=== PATIENT | female | born 1970 | race Caucasian/White ===

== ENCOUNTER 2018-12-10 16:00 | Outpatient (RCR) | payer OTHER, SELFPAY | END 2018-12-10 16:05 | disposition home or self-care (01) | LOC: PT 16:00 | PROVIDERS: Visit Provider Internal Medicine | DX: I89.0 Lymphedema, not elsewhere classified; C50.912 Malignant neoplasm of unspecified site of left female breast | CPT/HCPCS: 97110; 97140; 97163 ==

== ENCOUNTER 2020-06-13 10:00 | Outpatient (RCR) | payer OTHER, SELFPAY | END 2020-06-13 11:00 | disposition home or self-care (01) | LOC: PT 10:00 | PROVIDERS: PCP Nurse Practitioner Family; Visit Provider Internal Medicine | DX: Z85.3 Personal history of malignant neoplasm of breast; I89.0 Lymphedema, not elsewhere classified | CPT/HCPCS: 97110; 97112; 97140; 97163; 97164; 97530; 97760 ==

== ENCOUNTER 2020-07-23 17:17 | Emergency (ER) | payer OTHER, SELFPAY ==
[2020-07-23 17:56] VITALS: BP 125/82; PULSE 89; RESP 19; TEMP 36.6; O2SAT 98; BMI 28.0
--- NOTE | 2020-07-23 18:08 | HMH.EDUTC ---
[facility] [place] Clinical Impression: Sinusitis Qualifiers: Sinusitis location: unspecified location Chronicity: unspecified Qualified Code(s): J32.9 - Chronic sinusitis, unspecified Disposition: Home, Self-Care Condition on Discharge: Good Instructions: Sinusitis, Sinus Headache, DI for Sinusitis, Azithromycin Additional Instructions: *Monitor Temp, Over the counter Motrin or Tylenol as directed/as needed Tylenol every 4 hours and Motrin every 6 hours (as long as your family doctor has told you that you can take it) for fever or pain. and straight to ER if unable to lower temp less than 101.0 after medication given *Warm salt water gargles may help to soothe the throat *Throat Lozenges *Warm fluids like tea with honey may help to soothe the throat *Sleep elevated *Humidifier/Vaporizer Follow up IMMEDIATELY for new or worsening symptoms or no Noticeable improvement over the next 48-72 hours. 911 for difficulty breathing or swallowing You was tested for today for COVID19 your test result should be back later this evening, you may call back later this evening to see if your test results are back and the result You was given a handout with instructions for Self Quarantine and Self isolation for while you wait on test results and what to do if they are positive Prescriptions: Azithromycin [Z-Gigi 250mg Tab] 250 mg PO DIRECTED #6 tab Transmission Status: Pending to [facility] #[id number] Referrals: Ashley Christian APRN [Primary Care Provider] - As needed Forms: Work/School Release Time of Disposition: 18:26 Medical Decision Making - Jake Inquiry Pt receiving controlled substance: No Jake was queried for this patient: No Vital Signs: 07/23/20 17:56 Temperature 97.9 F Temperature Source Oral Pulse Rate [Right Brachial] 89 Respiratory Rate 19 Blood Pressure [Right Arm] 125/82 Blood Pressure Mean [Right Arm] 96 Blood Pressure Source [Right Arm] Automatic Cuff Blood Pressure Position [Right Arm] Sitting 02 Sat by Pulse Oximetry 98 Oxygen Delivery Method Room Air Medical Decision Narrative: Patient states that she has had azithromycin in the past without reaction or complications [facility] [place] HPI - General Stated complaint: wants Covid test,Sore throat,BALDERRAMA Time Seen by Provider: 07/23/20 18:08 Mode of Arrival: Ambulatory Source of Information: Patient Limitations: No Limitations Description of Symptoms (Recalled from Triage Doc. by RN): PATIENT REQUESTING COVID TEST; STATES HE HAS BEEN QUARANTINED WITH HIS DAUGHTER WHO TESTED POSITIVE LAST THURSDAY. STATES SHE DOES HAVE SOME SYMPTOMS OF A SINUS INFECTION HEENT Symptoms (Recalled from RN notes): No Resp Symptoms (Recalled from RN notes): No Skin Symptoms (Recalled from RN notes): No MS Symptoms (Recalled from RN notes): No Functional Status (Recalled from RN notes): WNL - Related Data Home Medications Medication Instructions Recorded Confirmed Duloxetine HCl [Cymbalta 30mg 60 mg PO DAILY 12/01/19 12/05/19 capsule] Levothyroxine Sodium [Synthroid 150 mcg PO DAILY 12/01/19 12/05/19 150mcg (0.15mg) tablet] Previous Rx's Medication Instructions Recorded Ipratropium/Albuterol Sulfate 3 ml IH Q4H 20 Days #75 neb 12/25/19 [Duoneb 3mL neb] Montelukast Sodium [Singulair 10mg 10 mg PO PM 30 Days #30 tab 12/25/19 tablet] Promethazine/Dextromethorphan 10 ml PO QID 8 Days #240 syrup 12/25/19 [Promethazine-Dm Syrup] Azithromycin [Z-Gigi 250mg Tab] 250 mg PO DIRECTED #6 tab 07/23/20 Allergies Allergy/AdvReac Type Severity Reaction Status Date / Time fluticasone Allergy Unknown Verified 12/05/19 08:17 [From ADVAIR DISKUS] Penicillins [PENICILLINS] Allergy Unknown Verified 12/05/19 08:17 salmeterol Allergy Unknown Verified 12/05/19 08:17 [From ADVAIR DISKUS] - Worker's Comp Is this a Worker's Comp case?: No [facility] History - Hepatitis A Screen Drug use history?: No High risk sexual behaviors?: No His
[2020-07-23 18:28] VITALS: BP 125/82; PULSE 89; RESP 19; TEMP 36.6; O2SAT 98
== END 2020-07-23 18:37 | disposition home or self-care (01) ==
PROVIDERS: Emergency Provider Nurse Practitioner; PCP Nurse Practitioner Family
DX: Z20.828 Contact with and (suspected) exposure to other viral communicable diseases (principal); J32.9 Chronic sinusitis, unspecified
CPT/HCPCS: 99201; U0003

== ENCOUNTER 2020-08-24 11:10 | Emergency (ER) | payer OTHER, SELFPAY ==
[2020-08-24 11:15] VITALS: BP 123/91; PULSE 78; RESP 18; TEMP 36.9; O2SAT 100; BMI 28.8
--- NOTE | 2020-08-24 11:23 | HMH.EDGENADL ---
ED Disposition Clinical Impression: Colitis Disposition: Home, Self-Care Condition on Discharge: Good Instructions: Low-Fiber/Low-Residue Diet, DI for Colitis Additional Instructions: Drink plenty of fluids. Phenergan as needed for nausea. Bentyl as prescribed, [id number] probiotic, low residue diet (see instruction sheet). Return if severe pain, severe bleeding, fever greater than 100 degrees. Call back to the emergency department in 4 hrs to obtain your COVID-19 test result. Quarantine yourself until you obtain your result. Prescriptions: Promethazine HCl [Phenergan 25mg tab] 25 mg PO Q6HP PRN #10 tab PRN Reason: Nausea And Vomiting Transmission Status: Received by [facility] #[id number] Dicyclomine HCl [Bentyl 10mg capsule] 10 mg PO TID #15 cap Transmission Status: Received by [facility] #[id number] Referrals: Ashley Christian APRN [Primary Care Provider] - - Critical Care Critical Care Time: No Attestation: On 08/24/20, the high probability of a clinically significant, sudden or life threatening deterioration of the following system(s) required my full and direct attention, intervention and personal management. The time I documented below is in addition to time spent performing reported procedures but includes the following listed in this critical care notation. Medical Decision Making - Medical Records Medical records reviewed: Yes: I reviewed the patient's medical records. MR Comment: prior colonoscopy result reviewed - Jake Inquiry Pt receiving controlled substance: No Vital Signs: 08/24/20 11:15 08/24/20 12:00 08/24/20 12:30 Temperature 98.4 F Temperature Source Oral Pulse Rate [Right Radial] 78 67 68 Respiratory Rate 18 Blood Pressure [Right Arm] 123/91 H 126/85 112/73 Blood Pressure Mean [Right Arm] 101 98 86 Blood Pressure Source [Right Arm] Automatic Cuff Automatic Cuff Automatic Cuff Blood Pressure Position [Right Arm] Sitting Sitting Sitting 02 Sat by Pulse Oximetry 100 98 Oxygen Delivery Method Room Air Room Air 08/24/20 13:00 08/24/20 14:15 Temperature Temperature Source Pulse Rate [Right Radial] 67 78 Respiratory Rate Blood Pressure [Right Arm] 121/84 135/101 H Blood Pressure Mean [Right Arm] 96 112 Blood Pressure Source [Right Arm] Automatic Cuff Automatic Cuff Blood Pressure Position [Right Arm] Sitting Sitting 02 Sat by Pulse Oximetry 99 99 Oxygen Delivery Method Room Air Room Air - Lab Data Lab Results 08/24/20 11:24: WBC 5.8, RBC 5.37, Hgb 16.1, Hct 48.5 H, MCV 90.5, MCH 30.1, MCHC 33.2, RDW 13.9, Plt Count 182, MPV 7.3 L, Neut % (Auto) 71.8, Lymph % (Auto) 19.2, [place] % (Auto) 6.4, Eos % (Auto) 1.8, Baso % (Auto) 0.9, Neut # (Auto) 4.2, Lymph # (Auto) 1.1, [place] # (Auto) 0.4, Eos # (Auto) 0.1, Baso # (Auto) 0.1 08/24/20 11:24: Sodium 140, Potassium 4.2, Chloride 104, Carbon Dioxide 30, Anion Gap 10.2, BUN 15, Creatinine 0.80, Estimated Creat Clear 119, Estimated GFR 76, Est GFR ( Amer) 92, Glucose 92, Calcium 9.7, Total Bilirubin 1.1, AST 31, ALT 22, Alkaline Phosphatase 75, Total Protein 7.6, Albumin 4.6, Globulin 3.0, Albumin/Globulin Ratio 1.5 08/24/20 11:24: PT 11.1, INR 1.00, APTT 25.5 08/24/20 11:24: ESR 3 08/24/20 11:24: C-Reactive Protein 31.6 H 08/24/20 11:30: Stool Occult Blood Positive A 08/24/20 12:17: Urine Color Yellow, Urine Appearance Clear, Urine pH 8.0, Ur Specific [place] 1.015, Urine Protein Negative, Urine Glucose (UA) Negative, Urine Ketones Negative, Urine Blood Negative, Urine Nitrate Negative, Urine Bilirubin Negative, Urine Urobilinogen 0.2, Ur Leukocyte Esterase 1+ A, Urine RBC None, Urine WBC 3-5, Ur Squamous Epith Cells 3-5, Ur Transition Epith Cell Occ, Amorphous Sediment 2+, Urine Bacteria None Result diagrams: 08/24/20 11:24 08/24/20 11:24 Orders (Tests/Meds): ED MEDICATIONS Discontinued Medications Generic Name Dose Route Start Last Admin Trade Name Marcellus PRN Reason Stop Do
[2020-08-24 11:29] VITALS: BMI 28.8
[2020-08-24 11:35] LABS: Occult Blood,Stool Positive (Negative)
--- NOTE | 2020-08-24 11:35 | CT_ITS ---
PROCEDURE: CT ABDOMEN PELVIS W CON CLINICAL INDICATION: abdo pain, rectal bleeding, vomiting Nausea, rectal bleeding, history of breast cancer and thyroid cancer COMPARISON: No exams were available for comparison TECHNIQUE: IV Contrast: 75ML Isovue 370 Oral Contrast None Axial images obtained with sagittal and coronal reformats. All CT scans at the facility use one or more dose reduction, viz: automated exposure control, ma/kV adjustment per patient size (including targeted exams where dose is matched to indication, i.e. head), or iterative reconstruction technique. FINDINGS: LOWER THORAX: There are bilateral breast implants.. Calcified granuloma is present in the right lower lobe. ABDOMEN & PELVIS: The liver, spleen, adrenal glands, pancreas, and gallbladder have an unremarkable appearance. No renal or ureteral calculi. There is a 3 x 1.6 cm left renal cyst. No renal or ureteral calculi. There is mild ectasia of the ureters on both sides however, a definite ureteral stone is not identified and there is no significant urinary bladder distention. This may be due to patient's hydration status. There has been a prior hysterectomy. No evidence of appendicitis. There is mild thickening of the descending colon in its mid aspect. No obvious diverticula are evident at this region. This could be due to nondistention or mild colitis. There is degenerative disc disease at L5-S1. There is mild wedging of T11 which may be chronic. IMPRESSION: 1. There is mild thickening of the descending colon. This is nonspecific and could be due to nondistention or mild colitis. No evidence of diverticulitis. 2. Other nonacute findings as described above. Dictated by: Marbin Spain MD 08/24/2020 14:18 Marbin Spain MD in [place] 08/24/2020 14:18
[2020-08-24 11:38] LABS: Basophils # 0.1 K/mm3 (0-0.2); Basophils % 0.9 % (0.1-2.0); Eosinophils # 0.1 K/mm3 (0.0-0.4); Eosinophils % 1.8 % (0.1-12.0); Hematocrit 48.5 % (37.0-47.0); Hemoglobin 16.1 g/dL (12.2-16.2); Lymphocytes # 1.1 K/mm3 (0.7-4.5); Lymphocytes % 19.2 % (10-50); Mean Corpuscular HGB Conc 33.2 g/dL (31.8-35.4); Mean Corpuscular Hemoglobin 30.1 pg (27.0-31.2); Mean Corpuscular Volume 90.5 fl (81-99); Mean Platelet Volume 7.3 fl (7.4-10.4); Monocytes # 0.4 K/mm3 (0.1-1.0); Monocytes % 6.4 % (1.7-9.3); Neutrophils # 4.2 K/mm3 (1.8-7.8); Neutrophils % 71.8 % (37.0-80.0); Platelet Count 182 K/mm3 (142-424); Red Blood Count 5.37 M/mm3 (4.20-5.40); Red Cell Distribution Width 13.9 % (11.5-17.5); White Blood Count 5.8 K/mm3 (4.8-10.8)
[2020-08-24 11:39] LABS: Chloride 104 mmol/L (98-107); Potassium 4.2 mmoL/L (3.5-5.1); Sodium 140 mmol/L (136-145)
[2020-08-24 11:42] LABS: Alanine Aminotransferase 22 U/L (12-78); Albumin Level 4.6 g/dl (3.5-5.0); Albumin/Globulin Ratio 1.5 (1.1-1.8); Alkaline Phosphatase 75 U/L (38-126); Anion Gap 10.2 mEq/L (5-15); Aspartate Amino Transferase 31 U/L (14-36); Bilirubin,Total 1.1 mg/dl (0.2-1.3); Blood Urea Nitrogen 15 mg/dl (7-17); Calcium 9.7 mg/dl (8.4-10.2); Carbon Dioxide 30 mmol/L (22.0-30.0); Creatinine Clearance Estimated 119 mL/min (50-200); Estimated Glomerular Filt Rate 76 ml/min (>60); GFR (African American) 92 ML/MIN (>60); Glucose 92 mg/dl (74-100); Total Protein,Serum 7.6 g/dl (6.3-8.2)
[2020-08-24 11:50] LABS: Activated Partial Thrombo Time 25.5 seconds (23.6-34.0); Prothrombin Time 11.1 seconds (9.4-11.8)
--- NOTE | 2020-08-24 11:52 | PC.NURSE ---
PO contrast completed at 1140. Radiology aware of this
--- NOTE | 2020-08-24 11:59 | PC.NURSE ---
CARLENE CHAUDHRY speaking with Dr. Marquez
[2020-08-24 12:00] VITALS: BP 126/85; PULSE 67
--- NOTE | 2020-08-24 12:16 | PC.NURSE ---
pt reports an allergy to Zofran, reports that when she was taking chemotherapy it make her vomiting worse.
[2020-08-24 12:27] LABS: Appearance,Urine CLEAR (Clear); Bilirubin,Urine Negative (Negative); Blood, Urine Negative (Negative); Color,Urine YELLOW (Yellow); Glucose,Urine (UA) Negative (Negative); Ketones,Urine Negative (Negative); Leukocyte Esterase,Urine 1+ (Negative); Microscopic, Urine URINE MICROSCOPIC (MICROSCOPIC); Nitrate,Urine Negative (Negative); Protein,Urine Negative (Negative); Specific Gravity, Urine 1.015 (1.005-1.030); Urobilinogen,Urine 0.2 EU/dl (0.2)
[2020-08-24 12:30] VITALS: BP 112/73; PULSE 68; O2SAT 98
[2020-08-24 12:38] LABS: Amorphous Sediment,Urine 2+ /lpf; Transitional Epi Cells,Urine OCC #/lpf (0-3)
[2020-08-24 13:00] VITALS: BP 121/84; PULSE 67; O2SAT 99
[2020-08-24 13:23] LABS: C-Reactive Protein 31.6 mg/L (0-4)
[2020-08-24 13:36] LABS: Erythrocyte Sedimentation Rate 3 mm/hr (0-20)
--- NOTE | 2020-08-24 13:39 | PC.NURSE ---
Addendum entered by Humza Steele, EMT-P 08/24/20 14:06: patient left around 1330. Still in radiology Original Note: patient is gone to radiology
--- NOTE | 2020-08-24 14:10 | PC.NURSE ---
pt back from radiology. Patient request medication for nausea. MD consulted.
[2020-08-24 14:15] VITALS: BP 135/101; PULSE 78; O2SAT 99
--- NOTE | 2020-08-24 14:24 | PC.NURSE ---
CARLENE CHAUDHRY speaking with Dr. Marquez
[2020-08-24 14:58] VITALS: BP 123/87; PULSE 77; RESP 18; TEMP 36.9; O2SAT 99
[2020-08-24 15:13] LABS: Thyroid Stimulating Hormone < 0.02 uIU/mL (0.465-4.68)
== END 2020-08-24 14:59 | disposition home or self-care (01) ==
PROVIDERS: Emergency Provider Emergency Medicine; PCP Nurse Practitioner Family
DX: K52.9 Noninfective gastroenteritis and colitis, unspecified (principal); K58.1 Irritable bowel syndrome with constipation; J45.909 Unspecified asthma, uncomplicated; Z20.828 Contact with and (suspected) exposure to other viral communicable diseases; Z88.0 Allergy status to penicillin
CPT/HCPCS: 74177; 80053; 81001; 82272; 84443; 85025; 85610; 85651; 85730; 86140; 87086; 87088; 87186; 96365; 96375; 99284; G0328; Q9967; U0003

== ENCOUNTER 2020-09-26 10:53 | Emergency (ER) | payer OTHER, SELFPAY ==
[2020-09-26 11:00] VITALS: BP 129/88; PULSE 81; RESP 20; TEMP 36.9; O2SAT 96; BMI 27.3
--- NOTE | 2020-09-26 11:15 | HMH.EDUTC ---
[facility] [place] Disposition Clinical Impression: Encounter for laboratory testing for COVID-19 virus Disposition: Home, Self-Care Condition on Discharge: Good Instructions: DI for COVID-19 (Suspected or Confirmed ), COVID-19: Testing and Tracing, Preventing the Spread of Coronavirus Discharge Instructions Additional Instructions: You were tested for today for COVID19 your test result should be back in the next 24-48 hours, you may call to the [facility] to see if your test results are back in the next 48 hours [phone] [facility] hours are 9am-9pm You was given a handout with instructions for Self Quarantine and Self isolation for while you wait on test results and what to do if they are positive If you are positive the Health Dept will be contacting you also If you come back positive, you may contact the Health Dept for further instructions on what to do and what CDC recommends Referrals: Ashley Christian APRN [Primary Care Provider] - As needed Time of Disposition: 11:23 Medical Decision Making - Jake Inquiry Pt receiving controlled substance: No Jake was queried for this patient: No Vital Signs: 09/26/20 11:00 Temperature 98.5 F Temperature Source Oral Pulse Rate [Left Brachial] 81 Respiratory Rate 20 Blood Pressure [Left Arm] 129/88 Blood Pressure Mean [Left Arm] 101 Blood Pressure Source [Left Arm] Automatic Cuff Blood Pressure Position [Left Arm] Sitting 02 Sat by Pulse Oximetry 96 Oxygen Delivery Method Room Air Orders (Tests/Meds): ORDERS Category Date Time Status Covid-19 Nasal PCR ([facility]) Routine Lab 09/26/20 11:05 Received [facility] [place] HPI - General Stated complaint: Covid positive, covid re test Time Seen by Provider: 09/26/20 11:15 Mode of Arrival: Ambulatory Source of Information: Patient Limitations: No Limitations Description of Symptoms (Recalled from Triage Doc. by RN): PATIENT REQUESTING COVID TEST TO RETURN TO WORK. SHE REPORTS TESTING POSITIVE ON 09/14. DENIES ANY SYMPTOMS AT THIS TIME HEENT Symptoms (Recalled from RN notes): No Resp Symptoms (Recalled from RN notes): No Skin Symptoms (Recalled from RN notes): No MS Symptoms (Recalled from RN notes): No Functional Status (Recalled from RN notes): WNL - History of Present Illness Provider Complaint: Patient state that she is here to get retested States that she tested positive for COVID earlier in the month and she came back in to get retested to get a negative result so she can return to work States that she is no longer having any symptoms - Related Data Home Medications Medication Instructions Recorded Confirmed Duloxetine HCl [Cymbalta 30mg 60 mg PO DAILY 12/01/19 08/24/20 capsule] Levothyroxine Sodium [Synthroid 150 mcg PO DAILY 12/01/19 08/24/20 150mcg (0.15mg) tablet] Exemestane 25 mg PO DAILY 08/24/20 08/24/20 Meloxicam 7.5 mg PO DAILY 08/24/20 08/24/20 methocarbamoL [Methocarbamol 500mg 500 mg PO TID 08/24/20 08/24/20 Tablet] Previous Rx's Medication Instructions Recorded Ipratropium/Albuterol Sulfate 3 ml IH Q4H 20 Days #75 neb 12/25/19 [Duoneb 3mL neb] Montelukast Sodium [Singulair 10mg 10 mg PO PM 30 Days #30 tab 12/25/19 tablet] Dicyclomine HCl [Bentyl 10mg 10 mg PO TID #15 cap 08/24/20 capsule] Promethazine HCl [Phenergan 25mg 25 mg PO Q6HP PRN #10 tab 08/24/20 tab] Allergies Allergy/AdvReac Type Severity Reaction Status Date / Time fluticasone Allergy Unknown Verified 12/05/19 08:17 [From ADVAIR DISKUS] Penicillins [PENICILLINS] Allergy Unknown Verified 12/05/19 08:17 salmeterol Allergy Unknown Verified 12/05/19 08:17 [From ADVAIR DISKUS] ondansetron [From Zofran] Allergy Verified 08/24/20 12:17 - Worker's Comp Is this a Worker's Comp case?: No [facility] History - Hepatitis A Screen Drug use history?: No High risk sexual behaviors?: No History of sexually transmitted infection?: No Currently employed?: No Childcare worker?: No Do you have indoor plumbing
[2020-09-26 11:25] VITALS: BP 129/88; PULSE 81; RESP 20; TEMP 36.9; O2SAT 96
--- NOTE | 2020-09-26 17:51 | PC.NURSE ---
PT NOTIFIED OF POSITIVE COVID RESULT
== END 2020-09-26 11:28 | disposition home or self-care (01) ==
PROVIDERS: Emergency Provider Nurse Practitioner; PCP Nurse Practitioner Family
DX: U07.1 COVID-19 (principal); J45.909 Unspecified asthma, uncomplicated; Z88.0 Allergy status to penicillin; Z90.13 Acquired absence of bilateral breasts and nipples
CPT/HCPCS: 99201; U0003

== ENCOUNTER → 2020-11-05 08:19 | Outpatient (CLI) | payer OTHER, SELFPAY ==
--- NOTE | 2020-11-05 08:25 | XR_ITS ---
PROCEDURE: XR KNEE RT 3V CLINICAL INDICATION: RT KNEE PAIN COMPARISON: CR [id number] KNEE-4 OR 5 VIEWS-LT from 11/16/2015 FINDINGS: No fracture or dislocation. No lytic or blastic change. There is normal mineralization. There are minimal osteoarthritic changes of the medial compartment and patellofemoral joint with small suprapatellar effusion. Other findings:None. IMPRESSION: Minimal osteoarthritis with small suprapatellar effusion Dictated by: Marbin Spain MD 11/05/2020 18:22 Marbin Spain MD in [place] 11/05/2020 18:22
== END ==
PROVIDERS: PCP Family Medicine; Visit Provider Family Medicine
DX: M25.561 Pain in right knee (principal)
CPT/HCPCS: 73562

== ENCOUNTER → 2021-06-10 23:20 | Outpatient (CLI) | payer OTHER, SELFPAY | PROVIDERS: Visit Provider Nurse Practitioner Family | DX: Z20.822 Contact with and (suspected) exposure to COVID-19 (principal) | CPT/HCPCS: U0003 ==

== ENCOUNTER 2021-07-14 09:35 | Emergency (ER) | payer OTHER, SELFPAY ==
[2021-07-14 09:35] VITALS: BP 122/71; PULSE 81; RESP 18; TEMP 36.8; O2SAT 97; BMI 32.3
--- NOTE | 2021-07-14 09:53 | HMH.EDUTC ---
[facility] [place] Clinical Impression: Strep throat Disposition: Home, Self-Care Condition on Discharge: Good Instructions: Strep Throat, DI for Strep Throat Additional Instructions: *Monitor Temp, Over the counter Motrin or Tylenol as directed/as needed Tylenol every 4 hours and Motrin every 6 hours (as long as your family doctor has told you that you can take it) for fever or pain. and straight to ER if unable to lower temp less than 101.0 after medication given *Warm salt water gargles may help to soothe the throat *Throat Lozenges *Warm fluids like tea with honey may help to soothe the throat *Sleep elevated *Humidifier/Vaporizer Follow up IMMEDIATELY for new or worsening symptoms or no Noticeable improvement over the next 48-72 hours. 911 for difficulty breathing or swallowing You were tested for today for COVID19 your test result should be back in the next 24-48 hours, you was given Handout to [facility] portal to check your results if you have issues logging on you may call the [facility] for your Results You was given a handout with instructions for Self Quarantine and Self isolation for while you wait on test results and what to do if they are positive If you are positive the Health Dept will be contacting you also Make sure to take your Vitamins Vit. C Vit D and Zinc if you can take them Prescriptions: Benzonatate [Tessalon Perle 100mg Cap*] 100 mg PO TID PRN #30 cap PRN Reason: Cough Transmission Status: Received by [facility] # Azithromycin [Z-Gigi 250mg Tab] 250 mg PO DIRECTED #6 tab Transmission Status: Received by [facility] # Referrals: Sriram Gee MD [Primary Care Provider] - As needed Time of Disposition: 10:21 Medical Decision Making - Jake Inquiry Pt receiving controlled substance: No Jake was queried for this patient: No Vital Signs: 07/14/21 09:35 Temperature 98.3 F Temperature Source Oral Pulse Rate [Right Brachial] 81 Respiratory Rate 18 Blood Pressure [Right Arm] 122/71 Blood Pressure Mean [Right Arm] 88 Blood Pressure Source [Right Arm] Automatic Cuff Blood Pressure Position [Right Arm] Sitting 02 Sat by Pulse Oximetry 97 Oxygen Delivery Method Room Air - Lab Data Lab results reviewed: Yes: I reviewed the patient's lab results. Lab Results 07/14/21 09:53: Strep [facility]n [facility] Positive A Orders (Tests/Meds): ED MEDICATIONS Discontinued Medications Generic Name Dose Route Start Last Admin Trade Name Marcellus PRN Reason Stop Dose Admin Ceftriaxone Sodium 1 gm 07/14/21 09:58 07/14/21 10:07 Ceftriaxone 1gm Vial IM 07/14/21 09:59 1 gm ONCE ONE Administration Lidocaine HCl 0 ml 07/14/21 09:58 07/14/21 10:07 Lidocaine 1% 5ml Pf Vial IM 07/14/21 09:59 2.1 ml ONCE ONE Administration Methylprednisolone Sodium Succinate 125 mg 07/14/21 09:58 07/14/21 10:07 Methylprednisolone Sod Succ 125mg Vial IM 07/14/21 09:59 125 mg ONCE ONE Administration ORDERS Category Date Time Status Full Resp Panel w/COVID ([facility]) Routine Lab 07/14/21 09:50 Received Medical Decision Narrative: Patient states that she is currently undergoing CHEMO States that is allergic to advair and PCN but has taken Rocephin and SoluMedrol in the past without reactions or complication No rash or complications after medication [facility] [place]PI - General Stated complaint: Exposed to RSV, cough sore throat,SOB Time Seen by Provider: 07/14/21 09:53 Mode of Arrival: Ambulatory Source of Information: Patient Limitations: No Limitations Description of Symptoms (Recalled from Triage Doc. by RN): PATIENT C/O WHEEZING, COUGH, AND RUNNY NOSE SINCE YESTERDAY. RECENT EXPOSED TO RSV HEENT Symptoms (Recalled from RN notes): Yes Resp Symptoms (Recalled from RN notes): Yes Skin Symptoms (Recalled from RN notes): No MS Symptoms (Recalled from RN notes): No Functional Status (Recalled from RN notes): WNL - History of Present Illness Provider Compla
--- NOTE | 2021-07-14 09:54 | PC.NURSE ---
PATIENT STATES THAT SHE IS ALLERGIC TO PENECILLIN BUT HAS TAKEN ROCEPHIN WITHOUT REACTION
[2021-07-14 10:00] LABS: Adenovirus,PCR Not Detected (NotDetected); Bordetella Pertussis Not Detected (NotDetected); Chlamydophila Pneumoniae, PCR Not Detected (NotDetected); Coronavirus 19, PCR Not Detected (NotDetected); Coronavirus 229E Not Detected (NotDetected); Coronavirus NL63 Not Detected (NotDetected); Coronavirus OC43 Not Detected (NotDetected); Coronovirus HKU1,PCR Not Detected (NotDetected); Human Metapneumovirus Not Detected (NotDetected); Influenza A, PCR Not Detected (NotDetected); Influenza AH1, 2009 Not Detected (NotDetected); Influenza AH1, PCR Not Detected (NotDetected); Influenza AH3,PCR Not Detected (NotDetected); Influenza B, PCR Not Detected (NotDetected); Mycoplasma Pneumoniae, PCR Not Detected (NotDetected); Parainfluenza 1, PCR Not Detected (NotDetected); Parainfluenza 2, PCR Not Detected (NotDetected); Parainfluenza 3, PCR Not Detected (NotDetected); Parainfluenza 4, PCR Not Detected (NotDetected); Rhinovirus/Enterovirus Not Detected (NotDetected)
[2021-07-14 10:07] LABS: UTC Strep Screen (Rapid) Positive (Negative)
[2021-07-14 10:20] VITALS: BP 122/71; PULSE 81; RESP 18; TEMP 36.8; O2SAT 97
[2021-07-14 12:41] LABS: Respiratory Syncytial Virus Detected (NotDetected)
--- NOTE | 2021-07-14 15:36 | PC.NURSE ---
PATIENT NOTIFIED OF POSITIVE RSV RESULT AT THIS TIME
== END 2021-07-14 10:24 | disposition home or self-care (01) ==
PROVIDERS: Emergency Provider Nurse Practitioner; PCP Family Medicine
DX: J02.0 Streptococcal pharyngitis (principal); B97.4 Respiratory syncytial virus as the cause of diseases classified elsewhere; Z88.0 Allergy status to penicillin; K21.9 Gastro-esophageal reflux disease without esophagitis
CPT/HCPCS: 87581; 87632; 87798; 87880; 96372; 99202; C9803; G0463; U0003; U0005

== ENCOUNTER 2022-02-28 15:54 | Emergency (ER) | payer OTHER, SELFPAY ==
[2022-02-28 16:05] VITALS: BP 98/52; PULSE 77; RESP 19; TEMP 37; O2SAT 96; BMI 30.7
[2022-02-28 16:30] VITALS: BP 113/80
--- NOTE | 2022-02-28 16:30 | HMH.EDUTC ---
[facility] [place] Clinical Impression: Otitis media Qualifiers: Otitis media type: unspecified Laterality: bilateral Qualified Code(s): H66.93 - Otitis media, unspecified, bilateral Disposition: Home, Self-Care Condition on Discharge: Good Instructions: Middle Ear Infection, Azithromycin Additional Instructions: *Monitor Temp, Over the counter Motrin or Tylenol as directed/as needed Tylenol every 4 hours and Motrin every 6 hours (as long as your family doctor has told you that you can take it) for fever or pain. and straight to ER if unable to lower temp less than 101.0 after medication given *Warm salt water gargles may help to soothe the throat *Throat Lozenges *Warm fluids like tea with honey may help to soothe the throat *Sleep elevated *Humidifier/Vaporizer Take medication as prescribed Follow up IMMEDIATELY for new or worsening symptoms or no Noticeable improvement over the next 48-72 hours. 911 for difficulty breathing or swallowing Prescriptions: Benzonatate [Benzonatate 100mg cap] 100 mg PO Q8HP PRN #15 cap PRN Reason: Cough Transmission Status: Received by [facility] # Azithromycin [Z-Gigi 250mg Tab] 250 mg PO DIRECTED #6 tab Transmission Status: Received by [facility] # Referrals: Ashley Christian APRN [Primary Care Provider] - As needed Time of Disposition: 16:44 Medical Decision Making - Jake Inquiry Pt receiving controlled substance: No Jake was queried for this patient: No Vital Signs: 02/28/22 16:05 02/28/22 16:30 02/28/22 16:52 Temperature 98.6 F 98.6 F Temperature Source Oral Pulse Rate 77 Pulse Rate [Left Brachial] 77 Respiratory Rate 19 18 Blood Pressure 113/80 Blood Pressure [Left Arm] 98/52 L 113/80 Blood Pressure Mean [Left Arm] 67 91 Blood Pressure Source [Left Arm] Automatic Cuff Automatic Cuff Blood Pressure Position [Left Arm] Sitting Sitting 02 Sat by Pulse Oximetry 96 Oxygen Delivery Method Room Air Orders (Tests/Meds): ED MEDICATIONS Discontinued Medications Generic Name Dose Route Start Last Admin Trade Name Freq PRN Reason Stop Dose Admin Methylprednisolone Sodium Succinate 125 mg 02/28/22 16:40 02/28/22 16:50 Methylprednisolone Sod Succ 125mg Vial IM 02/28/22 16:41 125 mg ONCE ONE Administration Medical Decision Narrative: Patient states that she has taken solumedrol in the past without complications or reactions [facility] [place] - General Stated complaint: upper Resp issues,cough congestion Time Seen by Provider: 02/28/22 16:30 Mode of Arrival: Ambulatory Source of Information: Patient Limitations: No Limitations Description of Symptoms (Recalled from Triage Doc. by RN): PATIENT C/O COUGH, SINUS DRAINAGE, AND CHEST CONGESTION X 2 WEEKS HEENT Symptoms (Recalled from RN notes): Yes Resp Symptoms (Recalled from RN notes): Yes Skin Symptoms (Recalled from RN notes): No MS Symptoms (Recalled from RN notes): No Functional Status (Recalled from RN notes): WNL - History of Present Illness Provider Complaint: Patient states that she has been having sinus congestion, pain and pressure in her ears, and cough States that she feels like she is having drainage in the back of her throat into her chest States that she isnt coughing anything up but her ears feel full - Related Data Home Medications Medication Instructions Recorded Confirmed Levothyroxine Sodium [Synthroid 150 mcg PO DAILY 12/01/19 06/10/21 150mcg (0.15mg) tablet] Exemestane 25 mg PO DAILY 08/24/20 06/10/21 Meloxicam 7.5 mg PO DAILY 08/24/20 06/10/21 methocarbamoL [Methocarbamol 500mg 500 mg PO TID 08/24/20 06/10/21 Tablet] ipratropium 0.5 mg-albuterol 3 mg 3 ml INHALATION Q4H PRN neb 02/07/21 06/10/21 (2.5 mg base)/3 mL nebulization soln omeprazole 20 mg capsule,delayed 20 mg PO DAILY cap 02/07/21 06/10/21 release Previous Rx's Medication Instructions Recorded Montelukast Sodium [Елена
[2022-02-28 16:52] VITALS: BP 113/80; PULSE 77; RESP 18; TEMP 37; O2SAT 96
== END 2022-02-28 17:09 | disposition home or self-care (01) ==
PROVIDERS: Emergency Provider Nurse Practitioner; PCP Nurse Practitioner Family
DX: H66.93 Otitis media, unspecified, bilateral (principal); K21.9 Gastro-esophageal reflux disease without esophagitis; J45.909 Unspecified asthma, uncomplicated; Z88.0 Allergy status to penicillin
CPT/HCPCS: 96372; 99212; G0463

== ENCOUNTER 2022-07-19 14:09 | Emergency (ER) | payer OTHER, SELFPAY ==
[2022-07-19 14:28] VITALS: BP 112/71; PULSE 81; RESP 16; TEMP 36.8; O2SAT 97; BMI 28.5
[2022-07-19 14:32] LABS: UTC Strep Screen (Rapid) Negative (Negative)
--- NOTE | 2022-07-19 14:45 | EXP.UTC ---
Discharge Plan Disposition Patient Disposition: Home, Self-Care Condition: Good Prescriptions Prescriptions: New azithromycin [Zithromax] 250 mg tablet 250 mg PO UD DOSE PK Qty: 6 0RF Rx Instructions: Take two (2) tablets today, then one (1) tablet days #2 thru #5 benzonatate [benzonatate] 100 mg capsule 100 mg PO TIDP PRN (Reason: Cough) Qty: 30 0RF methylprednisolone 4 mg Tablets,Dose Pack 4 mg PO DIRECTED Qty: 21 0RF albuterol sulfate 2.5 mg /3 mL (0.083 %) solution for nebulization 2.5 mg inhalation Q6H PRN (Reason: shortness of breath or wheezing) Qty: 90 0RF No Action ipratropium-albuterol 0.5 mg-3 mg(2.5 mg base)/3 mL solution for nebulization 3 ml INHALATION Q4H PRN omeprazole 20 mg capsule,delayed release(DR/EC) 20 mg PO DAILY duloxetine 30 mg capsule,delayed release(DR/EC) 60 mg PO BID Qty: 60 2RF levothyroxine 150 MCG tablet 150 mcg PO DAILY montelukast 10 MG tablet 10 mg PO PM 30 Days Qty: 30 0RF methocarbamol 500 MG tablet 500 mg PO TID meloxicam 7.5 MG tablet 7.5 mg PO DAILY exemestane 25 MG tablet 25 mg PO DAILY dicyclomine 10 MG capsule 10 mg PO TID Qty: 15 0RF promethazine 25 MG tablet 25 mg PO Q6HP PRN (Reason: Nausea And Vomiting) Qty: 10 0RF azithromycin 250 MG tablet 250 mg PO DIRECTED Qty: 6 0RF Rx Instructions: Take two (2) tablets on day #1, then one (1) tablet day #2 thru #5 benzonatate 100 MG capsule 100 mg PO TID PRN (Reason: Cough) Qty: 30 0RF azithromycin 250 MG tablet 250 mg PO DIRECTED Qty: 6 0RF Rx Instructions: Take two (2) tablets on day #1, then one (1) tablet day #2 thru #5 benzonatate 100 MG capsule 100 mg PO Q8HP PRN (Reason: Cough) Qty: 15 0RF Referrals Follow up/Referrals: Ashley Christian APRN [Primary Care Provider] - See instructions Activity Restrictions/Add. Instructions Additional Instructions/Restrictions: Drink plenty of fluids. Take tylenol or ibuprofen for pain or fever. Take the medications as directed. Follow up with your regular doctor. GO TO THE ER FOR ANY WORSENING SYMPTOMS Don't start the oral steroids until tomorrow, since you had the shot here today. Clinical Impressions Clinical Impression: Asthma with exacerbation Instructions Patient Instructions: Asthma -- Adult Discharge ED Provider: Fernando Estrella [facility] General Stated complaint: sore throat, cough, congestion, h/a Mode of Arrival: Ambulatory Source of Information: Patient Limitations: No Limitations Time Seen by Provider: 07/19/22 14:39 Description of Symptoms (Recalled from Triage Doc. by RN): pt comes in with c/o sore throat, cough, sinus pain and pressure, nasal drainge. symptoms began 07/14 HEENT Symptoms (Recalled from RN notes): Yes Resp Symptoms (Recalled from RN notes): Yes Skin Symptoms (Recalled from RN notes): No MS Symptoms (Recalled from RN notes): No Functional Status (Recalled from RN notes): n/a History of Present Illness Provider Complaint: She states that she has had sinus congestion, sore throat, and chest congestion for the past 5 days. She has a history of asthma. Related Data Home Medications Medication Instructions Recorded Confirmed levothyroxine 150 mcg tablet 150 mcg PO DAILY thyroid 12/01/19 06/10/21 exemestane 25 mg tablet 25 mg PO DAILY chemo 08/24/20 06/10/21 meloxicam 7.5 mg tablet 7.5 mg PO DAILY Pain 08/24/20 06/10/21 methocarbamol 500 mg tablet 500 mg PO TID Pain 08/24/20 06/10/21 ipratropium 0.5 mg-albuterol 3 mg 3 ml inhalation Q4H PRN 02/07/21 06/10/21 (2.5 mg base)/3 mL nebulization soln omeprazole 20 mg capsule,delayed 20 mg PO DAILY 02/07/21 06/10/21 release Previous Rx's Medication Instructions Recorded montelukast 10 mg tablet 10 mg PO PM 30 days #30 tabs 12/25/19 dicyclomine 10 mg capsule 10 mg PO TID #15 caps 08/24/20 promethazine 25 mg tablet 25 mg PO Q6HP PRN Nausea
[2022-07-19 15:46] VITALS: BP 112/71; PULSE 81; RESP 16; TEMP 36.8
== END 2022-07-19 15:46 | disposition home or self-care (01) ==
PROVIDERS: Emergency Provider Nurse Practitioner Family; PCP Nurse Practitioner Family
DX: J45.901 Unspecified asthma with (acute) exacerbation (principal); J02.9 Acute pharyngitis, unspecified; R51.9 Headache, unspecified; R11.2 Nausea with vomiting, unspecified; Z79.51 Long term (current) use of inhaled steroids; Z79.899 Other long term (current) drug therapy; Z88.1 Allergy status to other antibiotic agents; Z88.8 Allergy status to other drugs, medicaments and biological substances
CPT/HCPCS: 87880; 96372; 99213; G0463; J0696

== ENCOUNTER 2023-02-14 18:15 | Emergency (ER) | payer OTHER, SELFPAY ==
[2023-02-14 19:05] VITALS: BP 126/85; PULSE 84; RESP 18; TEMP 36.8; O2SAT 99; BMI 30.2
[2023-02-14 19:26] VITALS: BP 126/85; PULSE 84; RESP 18; TEMP 36.8; O2SAT 99
[2023-02-14 19:26] LABS: Apearance,Urine Clear (Clear); Color,Urine Dark Yellow (Yellow); Specific Gravity, Urine 1.025 (1.005-1.030)
[2023-02-14 19:27] LABS: Bilirubin,Urine Negative (Negative); Blood, Urine Negative (Negative); Glucose,Urine (UA) Negative (Negative); Ketones,Urine Negative (Negative); Protein,Urine Negative (Negative); UTC Leukocyte Esterase,Urine Negative (Negative); UTC Nitrate,Urine Negative (Negative); Urobilinogen,Urine 0.2 EU/dl (0.2)
--- NOTE | 2023-02-14 19:44 | EXP.UTC ---
Discharge Plan Disposition Patient Disposition: Home, Self-Care Condition: Good Prescriptions Prescriptions: No Action levothyroxine [Synthroid] 125 mcg tablet 125 mcg PO DAILY duloxetine 60 mg capsule,delayed release(DR/EC) 60 mg PO DAILY meloxicam 7.5 MG tablet 7.5 mg PO DAILY PRN (Reason: Pain) Referrals Follow up/Referrals: Ashely Christian APRN [Primary Care Provider] - See instructions Activity Restrictions/Add. Instructions Additional Instructions/Restrictions: Follow up with PCP on Thursday. Clinical Impressions Clinical Impression: Low back pain Instructions Patient Instructions: Low Back Pain (Alternative Therapy), Low Back Pain, DI for Low Back Pain, DI for Chronic Pain -- Adult Discharge ED Provider: Christine Bryant [facility] General Stated complaint: frequent urinating, painful,fever Mode of Arrival: Ambulatory Source of Information: Patient Limitations: No Limitations Time Seen by Provider: 02/14/23 19:44 Description of Symptoms (Recalled from Triage Doc. by RN): PATIENT C/O LEFT LOWER BACK PAIN AND FREQUENT URINATION X 2 DAYS HEENT Symptoms (Recalled from RN notes): No Resp Symptoms (Recalled from RN notes): No Skin Symptoms (Recalled from RN notes): No MS Symptoms (Recalled from RN notes): No Functional Status (Recalled from RN notes): WNL History of Present Illness Provider Complaint: Pt states that for the last 4 days she had symptoms of low back pain and increased urination. She has taken Azo and Cystex for her symptoms. Of note, she states that she had a flap surgery and the left side of her abdomen has been swollen. She reports that she has stage 4 metastatic breast cancer that has gone to her bones. She has stopped treatment at this time. Related Data Home Medications Medication Instructions Recorded Confirmed meloxicam 7.5 mg tablet 7.5 mg PO DAILY PRN Pain 08/24/20 02/14/23 duloxetine 60 mg capsule,delayed 60 mg PO DAILY NEUROPATHY 02/14/23 02/14/23 release levothyroxine 125 mcg tablet 125 mcg PO DAILY THYROID 02/14/23 02/14/23 (Synthroid) Allergies Allergy/AdvReac Type Severity Reaction Status Date / Time Penicillins [PENICILLINS] Allergy Unknown Verified 07/19/22 14:31 fluticasone Allergy Verified 07/19/22 14:31 [From Advair Diskus] ondansetron Allergy Verified 07/19/22 14:31 salmeterol Allergy Verified 07/19/22 14:31 [From Advair Diskus] Worker's Comp Is this a Worker's Comp case?: No [facility] Disclaimer: The information contained in this section may have been updated after the patient was seen, as this information can be updated by other users. Social History Smoking Status: Never smoker alcohol intake: never substance use type: denies use current occupational status: other Travel in the last 8 weeks: None household members: spouse housing: house caffeine: Yes ROS Obtained: Yes All systems reviewed & no additional complaints except as documented Constitutional Constitutional: Reports system reviewed and no additional complaints, except as documented Eyes Eyes: Reports system reviewed and no additional complaints, except as documented ENT Ears, Nose, Mouth, and Throat: Reports system reviewed and no additional complaints, except as documented Cardiovascular Cardiovascular: Reports system reviewed and no additional complaints, except as documented Respiratory Respiratory: Reports system reviewed and no additional complaints, except as documented Gastrointestinal Gastrointestingal: Reports system reviewed and no additional complaints, except as documented, abdominal pain and bloating Genitourinary Female Genitourinary: Reports system reviewed and no additional complaints, except as documented, Reports flank pain, Reports pelvic pain and Reports urinary frequency Musculoskeletal Musculoskeletal: Reports system reviewed and no additional complaints, except a
== END 2023-02-14 20:25 | disposition home or self-care (01) ==
PROVIDERS: Emergency Provider Nurse Practitioner Family; PCP Nurse Practitioner Family
DX: M54.59 Other low back pain (principal); R35.0 Frequency of micturition; R10.814 Left lower quadrant abdominal tenderness; C50.919 Malignant neoplasm of unspecified site of unspecified female breast; C79.51 Secondary malignant neoplasm of bone; E03.9 Hypothyroidism, unspecified
CPT/HCPCS: 81003; 87086; 87088; 87186; 99212; 99214; G0463

== ENCOUNTER 2023-08-24 16:10 | Emergency (ER) | payer OTHER, SELFPAY ==
[2023-08-24 16:10] VITALS: BP 127/79; PULSE 103; RESP 18; TEMP 36.9; O2SAT 98; BMI 31.4
--- NOTE | 2023-08-24 16:19 | EXP.UTC ---
Discharge Plan Disposition Patient Disposition: Home, Self-Care Condition: Good Prescriptions Prescriptions: New benzonatate [benzonatate] 100 mg capsule 100 mg PO TIDP PRN (Reason: Cough) Qty: 30 0RF cefdinir 300 mg capsule 300 mg PO BID Qty: 20 0RF methylprednisolone 4 mg Tablets,Dose Pack 4 mg PO DIRECTED Qty: 21 0RF No Action levothyroxine [Synthroid] 125 mcg tablet 125 mcg PO DAILY Referrals Follow up/Referrals: Eli Sarmiento DPM [Staff Physician] - See instructions Sriram Gee MD [Primary Care Provider] - See instructions Activity Restrictions/Add. Instructions Additional Instructions/Restrictions: Drink plenty of fluids. Take tylenol or ibuprofen for pain or fever. Take the medications as directed. Follow up with your regular doctor. GO TO THE ER FOR ANY WORSENING SYMPTOMS Rest the extremity, Elevate the extremity as tolerated while you are resting. Follow up with Dr. Sarmiento (podiatry) if you continue to have symptoms. I put in a referral but you need to call her office and schedule an appointment. Follow up with your regular doctor. GO TO THE ER FOR ANY WORSENING SYMPTOMS Clinical Impressions Clinical Impression: Sinusitis, Foot pain, right, Otitis media Instructions Patient Instructions: DI for Sinusitis, DI for Foot Pain Discharge ED Provider: Fernando Estrella [facility] General Stated complaint: SINUS, RT FOOT HURTS Time Seen by Provider: 08/24/23 16:19 History of Present Illness Provider Complaint: She states that for the past 2 weeks she has had sinus congestion. She also c/o right foot pain for the past 10 days. She denies any injury. Related Data Home Medications Medication Instructions Recorded Confirmed levothyroxine 125 mcg tablet 125 mcg PO DAILY THYROID 02/14/23 08/24/23 (Synthroid) Previous Rx's Medication Instructions Recorded benzonatate 100 mg capsule 100 mg PO TIDP PRN Cough #30 caps 08/24/23 cefdinir 300 mg capsule 300 mg PO BID #20 caps 08/24/23 methylprednisolone 4 mg tablets in 4 mg PO DIRECTED #21 tabs 08/24/23 a dose pack Allergies Allergy/AdvReac Type Severity Reaction Status Date / Time Penicillins [PENICILLINS] Allergy Unknown Verified 08/24/23 16:29 fluticasone Allergy Verified 08/24/23 16:29 [From Advair Diskus] ondansetron Allergy Verified 08/24/23 16:29 salmeterol Allergy Verified 08/24/23 16:29 [From Advair Diskus] [facility] Disclaimer: The information contained in this section may have been updated after the patient was seen, as this information can be updated by other users. Social History Smoking Status: Never smoker alcohol intake: never substance use type: denies use current occupational status: other Travel in the last 8 weeks: None household members: spouse housing: house caffeine: Yes ROS Obtained: Yes All systems reviewed & no additional complaints except as documented Constitutional Constitutional: Reports poor appetite Eyes Eyes: Reports system reviewed and no additional complaints, except as documented ENT Ears, Nose, Mouth, and Throat: Reports as per HPI Cardiovascular Cardiovascular: Reports system reviewed and no additional complaints, except as documented and Denies chest pain Respiratory Respiratory: Denies shortness of breath, Denies chest congestion, Reports cough, Denies stridor and Denies wheezing Gastrointestinal Gastrointestingal: Reports system reviewed and no additional complaints, except as documented; Denies abdominal pain, diarrhea or vomiting Musculoskeletal Musculoskeletal: Reports as per HPI Integumentary/Breasts Skin/Breast: Reports system reviewed and no additional complaints, except as documented and Denies rash Neurologic Neurologic: Denies paresthesias Allergic/Immunologic Allergic/Immunologic: Denies wheezing Physical Exam General General appe
--- NOTE | 2023-08-24 16:47 | XR_ITS ---
PROCEDURE INFORMATION: Exam: XR Right Foot Exam date and time: 08/24/2023 4:45 PM Age: 52 years old Clinical indication: Pain; Foot; Right; Additional info: Right foot pain, no injury TECHNIQUE: Imaging protocol: Radiologic exam of the right foot. Views: 3 or more views. COMPARISON: CR XR KNEE RT 3V 11/05/2020 8:30 AM FINDINGS: Bones/joints: No fracture or focal lesion. No significant arthropathy. Mild hallux valgus. Soft tissues: Normal. IMPRESSION: No acute findings.
[2023-08-24 17:15] VITALS: BP 127/79; PULSE 103; RESP 18; TEMP 36.9; O2SAT 98
== END 2023-08-24 17:15 | disposition home or self-care (01) ==
PROVIDERS: Emergency Provider Nurse Practitioner Family; PCP Family Medicine
DX: J01.90 Acute sinusitis, unspecified (principal); H66.93 Otitis media, unspecified, bilateral; M79.671 Pain in right foot; R09.81 Nasal congestion
CPT/HCPCS: 73630; 99212; 99214; G0463

== ENCOUNTER 2023-11-01 12:49 | Emergency (ER) | payer BC, OTHER, SELFPAY ==
[2023-11-01 14:15] VITALS: BP 130/87; PULSE 94; RESP 20; TEMP 36.6; O2SAT 98; BMI 29.9
--- NOTE | 2023-11-01 14:40 | EXP.UTC ---
Discharge Plan Disposition Patient Disposition: Home, Self-Care Condition: Good Prescriptions Prescriptions: New benzonatate 100 mg capsule 100 mg PO TID PRN (Reason: cough) Qty: 30 0RF methylprednisolone [Medrol (Gigi)] 4 mg tablets,dose pack See Rx Instructions .Route .COMPLEX 6 Days Qty: 21 0RF Rx Instructions: taper pack; azithromycin [Zithromax Z-Gigi] 250 mg tablet See Rx Instructions .ROUTE .COMPLEX 5 Days Qty: 6 0RF Rx Instructions: For 250 mg dose pack: take 500 mg today (day 1), then 250 mg for 4 days (days 2-5) guaifenesin [Mucinex] 600 mg tablet extended release 12hr 1,200 mg PO BID PRN (Reason: cough) Qty: 20 0RF albuterol sulfate [Proventil HFA] 90 mcg/actuation HFA aerosol inhaler 2 puff inhalation Q6H PRN (Reason: shortness of breath or wheezing) Qty: 8.5 0RF No Action levothyroxine [Synthroid] 125 mcg tablet 125 mcg PO DAILY duloxetine 60 mg capsule,delayed release(DR/EC) 60 mg PO DAILY Referrals Follow up/Referrals: Sriram Gee MD [Primary Care Provider] - See instructions Activity Restrictions/Add. Instructions Additional Instructions/Restrictions: Start antibiotic today. Be sure to complete entire prescription even if feeling better Monitor temp. Tylenol every 4 hours as needed and / or ibuprofen every 6 hours as needed ( As long as your primary care physician has told you that it ok to take both. For fever/aches/pains ER if no less than 101 despite Tylenol or Motrin Humidifier/vaporizer or hot steamy shower Inhaler every 4-6 hours as needed like we discussed. If unsure how to use it, ask pharmacist to demonstrate how. Should help open airways and improve cough, wheezing, and shortness of breath Mucinex during the day for your cough and cough suppressant only at night. Be sure to drink lots of water. Insurance may not cover a prescriptions for mucinex. Might be cheaper to get 400mg tablets and take 2 tablet in the morning, mid-day and evening with lots of water. *Promethazine DM cough syrup will cause drowsiness. Use only at night. No driving, operating machinery or caring for small children after taking it *John Jackman will not cause drowsiness but use at bedtime to help stop cough so that you may get some rest. *Start steroid today. Helps with inflammation therefore, cough and wheezing. Follow directions on the package. Reviewed side effects. Patient reports taking them before. Follow up IMMEDIATELY for new or worsening of symptoms OR no noticeable improvement over the next 48-72 hours. 911 immediately for any life threatening symptoms such as chest pain or difficulty breathing Clinical Impressions Clinical Impression: Bronchitis Sinusitis Qualifiers: Sinusitis location: unspecified location Chronicity: unspecified Qualified Code(s): J32.9 - Chronic sinusitis, unspecified Stand Alone Forms Stand Alone Forms: Work/School Release Instructions Patient Instructions: DI for Sinusitis, Sinusitis Discharge ED Provider: Sugey Aguayo [facility] General Stated complaint: cough, congestion, headache Mode of Arrival: Ambulatory Source of Information: Patient Limitations: No Limitations Time Seen by Provider: 11/01/23 14:40 Description of Symptoms (Recalled from Triage Doc. by RN): PATIENT C/O DIARRHEA, FEVER, SORE THROAT, COUGH, BODY ACHES AND LUNG PAIN SINCE THURSDAY NIGHT. RECENTLY EXPOSED TO FLU HEENT Symptoms (Recalled from RN notes): Yes Resp Symptoms (Recalled from RN notes): Yes Skin Symptoms (Recalled from RN notes): No MS Symptoms (Recalled from RN notes): No Functional Status (Recalled from RN notes): WNL History of Present Illness Provider Complaint: Patient states that she has been sick for 4-5 days with sinus congestion, sore throat, body aches, pain at times when she cough, and diarrhea States that she has been around daughter and grandchild that has flu and strep throat States that she also has asthma and has been using her nebulizer but out of her albuterol inhaler wanting to get one if she can Related Data Home Medications Medication Instructions Recorded Confirmed levothyroxine 125 mcg tablet 125 mcg PO DAILY THYROID 02/14/23 11/01/23 (Synthroid) duloxetine 60 mg capsule,delayed 60 mg PO DAILY 11/01/23 11/01/23 release Previous Rx's Medication Instructions Recorded albuterol sulfate 90 mcg/actuation 2 puff inhalation Q6H PRN 11/01/23 aerosol inhaler (Proventil HFA) shortness of breath or wheezing #8.5 grams azithromycin 250 mg tablet See Rx Instructions PO .COMPLEX 5 11/01/23 (Zithromax Z-Gigi) days #6 tabs benzonatate 100 mg capsule 100 mg PO TID PRN cough #30 caps 11/01/23 guaifenesin 600 mg tablet, 1,200 mg PO BID PRN cough #20 tabs 11/01/23 extended release 12 hr (Mucinex) methylprednisolone 4 mg tablets in See Rx Instructions .Route 11/01/23 a dose pack (Medrol (Gigi)) .COMPLEX 6 days #21 tabs Allergies Allergy/AdvReac Type Severity Reaction Status Date / Time Penicillins [PENICILLINS] Allergy Unknown Verified 08/24/23 16:29 fluticasone Allergy Verified 08/24/23 16:29 [From Advair Diskus] ondansetron Allergy Verified 08/24/23 16:29 salmeterol Allergy Verified 08/24/23 16:29 [From Advair Diskus] Worker's Comp Is this a Worker's Comp case?: No [facility] Disclaimer: The information contained in this section may have been updated after the patient was seen, as this information can be updated by other users. Medical History (Updated 11/01/23 @ 14:57 by Sugey Aguayo APRN) Asthma Breast cancer Kidney stone Migraine Thyroid disease Urinary tract infection Surgical History (Updated 11/01/23 @ 14:27 by Lizette Danielle RN) History of hysterectomy History of mastectomy Social History Smoking Status: Never smoker alcohol intake: never substance use type: denies use current occupational status: other Travel in the last 8 weeks: None household members: spouse housing: house caffeine: Yes ROS Obtained: Yes All systems reviewed & no additional complaints except as documented and Yes Systems reviewed as appropriate & no additional complaints except as documented Constitutional Constitutional: Reports system reviewed and no additional complaints, except as documented, Reports as per HPI, Reports body ache, Reports chills, Reports fever(s) and Reports headache(s) ENT Ears, Nose, Mouth, and Throat: Reports system reviewed and no additional complaints, except as documented, Reports as per HPI, Reports otalgia, Reports headache(s), Reports nasal congestion, Reports sinus pressure and Reports sore throat Cardiovascular Cardiovascular: Reports system reviewed and no additional complaints, except as documented and Reports as per HPI Respiratory Respiratory: Reports system reviewed and no additional complaints, except as documented, Reports as per HPI, Reports cough and Reports pain with cough Gastrointestinal Gastrointestingal: Reports system reviewed and no additional complaints, except as documented, as per HPI and diarrhea; Denies abdominal pain, nausea or vomiting Neurologic Neurologic: Reports headache(s) Physical Exam General General appearance: alert and in no apparent distress ENT ENT exam: Present mucous membranes moist Expanded ENT Exam TM/Canal exam: Right TM: erythema and bulging Nose exam: Present sinus tenderness Throat exam: Present other (Pharyngeal erythema noted with PND) Respiratory Respiratory exam: Present normal lung sounds bilaterally; Absent respiratory distress or wheezes Cardiovascular Cardiovascular exam: Present regular rate, normal rhythm and normal heart sounds Abdominal Exam Abdominal exam: Present soft and normal bowel sounds; Absent distention or tenderness Neurological Exam Neurological exam: Present alert, oriented X3 and normal gait Medical Decision Making Jake Inquiry Pt receiving controlled substance: No Jake was queried for this patient: No Vital Signs: 11/01/23 14:15 Temperature 97.8 F Temperature Source Oral Pulse Rate [Right Brachial] 94 H Respiratory Rate 20 Blood Pressure [Right Arm] 130/87 Blood Pressure Mean [Right Arm] 101 Blood Pressure Source [Right Arm] Automatic Cuff Blood Pressure Position [Right Arm] Sitting 02 Sat by Pulse Oximetry 98 Oxygen Delivery Method Room Air Lab Data Lab results reviewed: Yes I reviewed the patient's lab results. Medical Decision Narrative: Patient states that she has taken azithromycin, Albuterol inhaler, and Medrol in the past without complications or reactions even though allergic to Advair Diskus
[2023-11-01 14:58] LABS: UTC Influenza A Antigen Negative (Negative); UTC Influenza B Antigen Negative (Negative)
[2023-11-01 15:00] LABS: UTC Strep Screen (Rapid) Negative (Negative)
[2023-11-01 15:02] VITALS: BP 130/87; PULSE 94; RESP 20; TEMP 36.6; O2SAT 98
== END 2023-11-01 15:08 | disposition home or self-care (01) ==
PROVIDERS: Emergency Provider Nurse Practitioner; PCP Family Medicine
DX: J20.9 Acute bronchitis, unspecified (principal); J01.90 Acute sinusitis, unspecified; R07.1 Chest pain on breathing; R51.9 Headache, unspecified; R05.9 Cough, unspecified; R09.81 Nasal congestion; R07.0 Pain in throat; R19.7 Diarrhea, unspecified; M79.18 Myalgia, other site; E03.9 Hypothyroidism, unspecified; J45.909 Unspecified asthma, uncomplicated; H92.01 Otalgia, right ear
CPT/HCPCS: 87635; 87804; 87880; 99212; 99214; G0463

== ENCOUNTER 2024-06-06 15:41 | Outpatient (CLI) | payer BC, OTHER, SELFPAY ==
[2024-06-06 17:27] LABS: HDL Cholesterol 50 mg/dl (40-60)
[2024-06-06 17:44] LABS: Direct LDL Cholesterol 195.61 mg/dL (100-129); T4 (Thyroxine) 6.8 ug/dl (5.53-11.0)
[2024-06-06 17:45] LABS: Free T4 (Free Thyroxine) 0.87 ng/dl (0.78-2.19)
[2024-06-06 17:58] LABS: Thyroid Stimulating Hormone 8.03 uIU/mL (0.465-4.68)
[2024-06-06 18:17] LABS: Vitamin B12 444 pg/mL (239-931)
[2024-06-06 18:35] LABS: Chol/HDL Ratio 6.1 (1-3.5); VLDL Cholesterol 57 mg/dL (0-40)
[2024-06-06 19:00] LABS: Cholesterol 305 mg/dl (140-200); Triglycerides 283 mg/dl (30-150)
[2024-06-06 19:11] LABS: Ferritin 25.4 ng/ml (11.1-264)
[2024-06-08 14:16] LABS: Thyroid Peroxidase Antibodies 10 IU/mL (0-34); Triiodothyronine (T3) Free 2.4 pg/mL (2.0-4.4)
== END 2024-06-06 23:59 | disposition home or self-care (01) ==
LOC: LAB.DROPOF 06-07 09:58
PROVIDERS: PCP Nurse Practitioner Family; Visit Provider Nurse Practitioner Family
DX: E03.9 Hypothyroidism, unspecified (principal); R05.1 Acute cough; J40 Bronchitis, not specified as acute or chronic; H66.92 Otitis media, unspecified, left ear
CPT/HCPCS: 80061; 82607; 82728; 84436; 84439; 84443; 84481; 84482; 86376; 87635

== ENCOUNTER 2024-08-31 10:27 | Emergency (ER) | payer BC, SELFPAY ==
[2024-08-31 11:45] VITALS: BP 99/66; PULSE 82; RESP 19; TEMP 36.8; O2SAT 98; BMI 32.3
--- NOTE | 2024-08-31 11:50 | ED_ITS ---
Discharge Plan Disposition Patient Disposition: Home, Self-Care Condition: Good Prescriptions Prescriptions: New prednisone 10 mg tablet 10 mg PO DIRECTED 9 Days Qty: 21 0RF Rx Instructions: Take 4 tablets daily for 3 days, then take 2 tablets daily for 3 days, then take 1 tablet daily for 3 days, then stop. promethazine-DM 6.25-15 mg/5 mL Syrup 5 ml PO Q6H PRN (Reason: Cough) Qty: 240 0RF benzonatate 100 mg capsule 100 mg PO TIDP PRN (Reason: Cough) Qty: 30 0RF cefdinir 300 mg capsule 300 mg PO BID Qty: 20 0RF No Action duloxetine 60 mg capsule,delayed release(DR/EC) 60 mg PO DAILY 30 Days Qty: 30 5RF pravastatin 20 mg tablet 20 mg PO DAILY Qty: 30 2RF levothyroxine [Synthroid] 137 mcg tablet 137 mcg PO DAILY Qty: 30 2RF Referrals Follow up/Referrals: Ashley Christian APRN [Primary Care Provider] - See instructions Activity Restrictions/Add. Instructions Additional Instructions/Restrictions: Drink plenty of fluids. Take tylenol or ibuprofen for pain or fever. Take the medications as directed. Follow up with your regular doctor. GO TO THE ER FOR ANY WORSENING SYMPTOMS Don't start the oral steroids (medrol dose pack) until tomorrow since you had the shot here The cough medication (promethazine dm) will make you drowsy, so don't drive or operate heavy machinery after taking it. Clinical Impressions Clinical Impression: Pneumonia Instructions Patient Instructions: Pneumonia--Adult, Promethazine, Dexamethasone, Ceftriaxone Injection Print Language Print Language: Slovenian Discharge ED Provider: Fernando Estrella [facility] [place] General Stated complaint: soa chest congestion Time Seen by Provider: 08/31/24 11:49 Related Data Previous Rx's ?Medication ?Instructions ?Recorded duloxetine 60 mg capsule,delayed 60 mg PO DAILY 30 days #30 caps 06/06/24 release pravastatin 20 mg tablet 20 mg PO DAILY #30 tabs 06/08/24 Synthroid 137 mcg tablet 137 mcg PO DAILY #30 tabs 06/10/24 (levothyroxine) benzonatate 100 mg capsule 100 mg PO TIDP PRN Cough #30 caps 08/31/24 cefdinir 300 mg capsule 300 mg PO BID #20 caps 08/31/24 prednisone 10 mg tablet 10 mg PO DIRECTED 9 days #21 08/31/24 tabs promethazine-DM 6.25 mg-15 mg/5 mL 5 ml PO Q6H PRN Cough #240 mL 08/31/24 oral syrup Allergies Allergy/AdvReac Type Severity Reaction Status Date / Time Penicillins (PENICILLINS) Allergy Unknown Verified 06/06/24 14:36 fluticasone (From Advair Allergy Verified 06/06/24 14:36 Diskus) ondansetron Allergy Verified 06/06/24 14:36 salmeterol (From Advair Allergy Verified 06/06/24 14:36 Diskus) [facility] Disclaimer: The information contained in this section may have been updated after the patient was seen, as this information can be updated by other users. Medical History (Updated 08/31/24 @ 13:02 by Fernando Estrella APRN) Thyroid disease Urinary tract infection Kidney stone Breast cancer Migraine Asthma Surgical History (Updated 11/01/23 @ 14:27 by Lizette Danielle RN) History of hysterectomy History of mastectomy Social History Smoking Status: Never smoker alcohol intake: never substance use type: denies use current occupational status: other household members: spouse housing: house caffeine: Yes ROS Obtained: Yes All systems reviewed & no additional complaints except as documented Constitutional Constitutional: Reports chills and Reports fever(s) Eyes Eyes: Denies eye discharge ENT Ears, Nose, Mouth, and Throat: Reports as per HPI Cardiovascular Cardiovascular: Denies chest pain Respiratory Respiratory: Denies chest congestion and Reports cough Gastrointestinal Gastrointestingal: Reports nausea; Denies abdominal pain, constipation, cramping, diarrhea or vomiting Musculoskeletal Musculoskeletal: Denies arthralgias Integumentary/Breasts Skin/Breast: Denies rash Neurologic Neurologic: Denies paresthesias Physical Exam General General appearance: alert and in no apparent distress Head Head exam: atraumatic, normocephalic and normal inspection Eye Eye exam: Present normal appearance, PERRL and EOMI ENT ENT exam: Present mucous membranes moist and normal external ear exam Expanded ENT Exam TM/Canal exam: Bilateral TM: erythema and bulging Nose exam: Absent sinus tenderness Mouth exam: Present normal external inspection; Absent drooling Teeth exam: Present normal inspection Throat exam: Present tonsillar erythema, tonsillomegaly and tonsillar exudate Neck Neck exam: Present normal inspection, full ROM and trachea midline; Absent tenderness, meningismus or lymphadenopathy Chest Chest inspection: Present normal inspection and symmetric chest wall rise; Absent tenderness Respiratory Respiratory exam: Present normal lung sounds bilaterally; Absent respiratory distress, wheezes, stridor or accessory muscle use Cardiovascular Cardiovascular exam: Present regular rate and normal rhythm; Absent systolic murmur or diastolic murmur Abdominal Exam Abdominal exam: Present soft and normal bowel sounds; Absent distention, tenderness, guarding, rebound or rigidity Extremities Exam Extremities exam: Present normal inspection and normal capillary refill; Absent calf tenderness Back Exam Back exam: Present normal inspection and full ROM; Absent tenderness, CVA tenderness (R) or CVA tenderness (L) Neurological Exam Neurological exam: Present alert, oriented X3 and CN II-XII intact Psychiatric Psychiatric exam: Present normal affect and normal mood Skin Skin exam: Present warm, dry, intact and normal color Medical Decision Making Medical Records Medical records reviewed: No I reviewed the patient's medical records. Screening: Per USPSTF and CDC recommendations, given the prevalence of disease in our region, it is our hospital?s policy to screen for HIV and viral Hepatitis for all patients aged 18 and over and those with ongoing risk factors. Jake Inquiry Pt receiving controlled substance: No Lab Data Lab results reviewed: Yes I reviewed the patient's lab results.
[2024-08-31 12:07] LABS: UTC Strep Screen (Rapid) Negative (Negative)
--- NOTE | 2024-08-31 12:13 | XR_ITS ---
PROCEDURE INFORMATION: Exam: XR Chest Exam date and time: 08/31/2024 12:18 PM Age: 53 years old Clinical indication: Cough; Additional info: Cough, congestion TECHNIQUE: Imaging protocol: Radiologic exam of the chest. Views: 2 views. Total images: 2 COMPARISON: CR XR CHEST PORTABLE 12/25/2019 2:20 PM FINDINGS: Lungs: No focal pneumonia. Pleural spaces: No evidence of pneumothorax. No pleural effusions. Heart/Mediastinum: The heart is not enlarged. Bones/joints: Unremarkable. Soft tissues: Postoperative changes of both breasts. Other findings: Nodular density overlies the right lower lobe as previously noted. IMPRESSION: 1. Nodular density overlies the right lower lobe as previously noted. 2. No focal pneumonia.
[2024-08-31] MEDS: cefTRIAXone 1GM VIAL 1 GM IM (12:54)
[2024-08-31] MEDS: DEXAMETHASONE 4MG/ML 1ML VIAL 8 MG IM (12:54)
[2024-08-31] MEDS: LIDOCAINE 1% 5ML PF VIAL IM (12:54)
[2024-08-31 13:05] VITALS: BP 99/66; PULSE 82; RESP 19; TEMP 36.8; O2SAT 98
== END 2024-08-31 13:08 | disposition home or self-care (01) ==
PROVIDERS: Emergency Provider Nurse Practitioner Family; PCP Nurse Practitioner Family
DX: J18.9 Pneumonia, unspecified organism (principal)
CPT/HCPCS: 71046; 87880; 96372; 99213; G0381; J0696; J1100

== ENCOUNTER 2024-11-11 14:14 | Emergency (ER) | payer BC, SELFPAY ==
[2024-11-11 14:19] VITALS: BP 124/75; PULSE 89; RESP 16; TEMP 36.8; O2SAT 100; BMI 31.6
[2024-11-11 14:32] LABS: Coronavirus 19, PCR Not Detected (NotDetected); Influenza B, PCR Not Detected (NotDetected)
[2024-11-11 15:16] LABS: Influenza A, PCR Detected (NotDetected)
[2024-11-11 15:37] VITALS: BP 170/96; PULSE 92; RESP 18; O2SAT 97
[2024-11-11 15:45] VITALS: BP 133/84; PULSE 94; O2SAT 99
[2024-11-11 16:10] LABS: Basophils % 0.8 % (0.1-2.0); Eosinophils # 0.1 K/mm3 (0.0-0.4); Eosinophils % 1.6 % (0.1-12.0); Hematocrit 42.8 % (37.0-47.0); Hemoglobin 14.2 g/dL (12.2-16.2); Lymphocytes # 0.5 K/mm3 (0.7-4.5); Lymphocytes % 13.4 % (10-50); Mean Corpuscular HGB Conc 33.2 g/dL (31.8-35.4); Mean Corpuscular Hemoglobin 29.8 pg (27.0-31.2); Mean Corpuscular Volume 89.7 fl (81-99); Mean Platelet Volume 9.5 fl (7.4-10.4); Monocytes # 0.4 K/mm3 (0.1-1.0); Neutrophils # 2.7 K/mm3 (1.8-7.8); Neutrophils % 72.9 % (37.0-80.0); Platelet Count 121 K/mm3 (142-424); Red Blood Count 4.77 M/mm3 (4.20-5.40); White Blood Count 3.7 K/mm3 (4.8-10.8)
--- NOTE | 2024-11-11 16:26 | ED_ITS ---
<Statement entered by Kelley Fung DO - 11/11/24 23:25> I was consulted by the JOHNY, and we discussed the complexity of the problems being addressed. I approved the treatment and management plan for this patient's care in the emergency department, thus performing a substantive portion of the medical decision making. I looked at the rash and I feel it is most likely herpetic in nature, but cannot definitively exclude cellulitis so we will broaden antibiotic coverage. We are also adding acyclovir. Ultimately, lab work does not support any sort of bad systemic infection. I feel she is appropriate for discharge home with close follow-up with primary care. Strict return precautions were given. Kelley Fung DO Discharge Plan Disposition Patient Disposition: Home, Self-Care Condition: Good Prescriptions Prescriptions: New sulfamethoxazole-trimethoprim [Bactrim DS] 800-160 mg tablet 1 tab PO BID 5 Days Qty: 10 0RF acyclovir 800 mg tablet 800 mg PO 5XDAY Qty: 35 0RF Rx Instructions: while awake; give 5 doses in 24 hours No Action duloxetine 60 mg capsule,delayed release(DR/EC) 60 mg PO DAILY 30 Days Qty: 30 5RF levothyroxine [Synthroid] 137 mcg tablet 137 mcg PO DAILY Qty: 30 2RF pravastatin 20 mg tablet See Rx Instructions .ROUTE .COMPLEX Qty: 30 0RF Dose Instruction: TAKE 1 TABLET BY MOUTH DAILY Rx Instructions: TAKE 1 TABLET BY MOUTH DAILY Referrals Follow up/Referrals: Ashley Christian APRN [Primary Care Provider] - See instructions Activity Restrictions/Add. Instructions Additional Instructions/Restrictions: Continue to take all medicines as prescribed, take Bactrim, clindamycin and acyclovir as prescribed, recommend good p.o. intake, ibuprofen Tylenol as needed for flulike symptoms, return to the emergency department any worsening signs or symptoms follow-up with family doctor. Clinical Impressions Clinical Impression: Influenza A, Cellulitis of left arm Instructions Patient Instructions: Cellulitis Print Language Print Language: Pakistani Discharge ED Provider: Kelley Fung General Adult HPI General Chief complaint: Wound/Laceration Stated complaint: hand/arm pain, rash ;left Time Seen by Provider: 11/11/24 15:46 Mode of Arrival: Ambulatory Source of Information: Patient Limitations: No Limitations Description of Symptoms (Recalled from ER Triage Doc. by RN): Patient states she went to the ED on Thursday for an I&D of the left ring finger. After the I&D, the patient stated she started developing a rash on the left arm yesterday. States this morning she awoke and had a rash on her hand. Patient also endorses generalized illness associated endorsing left arm, shoulder, and neck pain. States she has been having shortness of breath. Endorses a cough. Endorses fevers at home. Patient states she has been taking Naproxen and the Clindamycin she was prescribed on Thursday. History of Present Illness HPI narrative: 53-year-old female presents to the emergency department with cough congestion subjective fever chills, and a rash to the left upper extremity that is painful and swollen. States she was seen at outside facility on 11/09/2024 had what sounds like I&D performed to the left ring finger she has been on clindamycin taking medication as prescribed since that visit. She denies any chest pain, admits to some shortness of breath, no abdominal pain no nausea no vomiting no constipation no diarrhea no urinary type symptomatology, Dors is pain in the left arm and left shoulder region describes it as a joint pain . She has friend who instructed her to come to the emergency department with concerns of sepsis . Initial triage vitals grossly unremarkable, she is a current everyday smoker (vapes), denies any alcohol or drug use. Other past medical history consistent with hypothyroidism acquired from status post thyroidectomy, double mastectomy status post breast cancer, as well as some spread to the bones, she follows with hematology oncology every year and has been cancer free. Other past medical history significant for hyperlipidemia anxiety/depression. Related Data Previous Rx's ?Medication ?Instructions ?Recorded duloxetine 60 mg capsule,delayed 60 mg PO DAILY 30 days #30 caps 06/06/24 release Synthroid 137 mcg tablet 137 mcg PO DAILY #30 tabs 06/10/24 (levothyroxine) pravastatin 20 mg tablet See Rx Instructions .Route 09/21/24 .COMPLEX #30 tabs acyclovir 800 mg tablet 800 mg PO 5XDAY #35 tabs 11/11/24 sulfamethoxazole 800 1 tab PO BID 5 days #10 tabs 11/11/24 mg-trimethoprim 160 mg tablet (Bactrim DS) Allergies Allergy/AdvReac Type Severity Reaction Status Date / Time Penicillins (PENICILLINS) Allergy Unknown Other Verified 11/11/24 15:48 fluticasone (From Advair Allergy Other Verified 11/11/24 15:48 Diskus) ondansetron Allergy Other Verified 11/11/24 15:48 salmeterol (From Advair Allergy Other Verified 11/11/24 15:48 Diskus) [facility] Disclaimer: The information contained in this section may have been updated after the patient was seen, as this information can be updated by other users. Medical History (Updated 11/11/24 @ 17:56 by PAUL Escalona) Thyroid disease Urinary tract infection Kidney stone Breast cancer Migraine Asthma Surgical History History of hysterectomy History of mastectomy Social History Smoking Status: Current every day smoker alcohol intake: never substance use type: denies use current occupational status: other Travel in the last 8 weeks: None household members: spouse housing: house caffeine: Yes Have you lived/traveled outside [place] in past 30 days?: No Contact w/someone who lives/traveled outside US past 30 days?: No Exposure to someone with infectious disease in past 14 days?: No Do you have a fever (greater than 100.4 F or 38 C)?: No Have you tested positive for COVID-19: No Exposed to someone with COVID-19 in past 14 days?: No Do you have a sore throat?: No Do you have a cough?: No Do you have any weakness?: No Do you have any diarrhea?: No Are you experiencing any unusual bleeding?: No Do you have any muscle aches/pain?: No Do you have any abdominal pain?: No Are you experiencing loss of taste or smell?: No Other Medical History Have you received the Flu Vaccine for this season: No Have you received the Pneumonia Vaccine: No ROS Obtained: Yes All systems reviewed & no additional complaints except as documented Physical Exam General General appearance: alert and in no apparent distress Head Head exam: atraumatic and normocephalic Eye Eye exam: Present PERRL and EOMI ENT ENT exam: Present mucous membranes moist Neck Neck exam: Present normal inspection Chest Chest inspection: Present normal inspection and symmetric chest wall rise Respiratory Respiratory exam: Present normal lung sounds bilaterally; Absent respiratory distress Cardiovascular Cardiovascular exam: Present regular rate and normal rhythm Abdominal Exam Abdominal exam: Present soft; Absent tenderness, guarding, rebound or rigidity Extremities Exam Extremities exam: Present normal inspection Neurological Exam Neurological exam: Present alert and oriented X3 Psychiatric Psychiatric exam: Present normal affect Skin Skin exam: Present warm, dry, rash, erythema and other (There is some of a macular papular versus vesicular rash in somewhat of a dermatomal pattern/lymphangitic streaking appearance that starts on the patient's left ring finger and will travel up her arm and around the axilla area blanchable, no hot to touch sensation, no fluctuance or crepitus) Medical Decision Making Medical Records Medical records reviewed: Yes I reviewed the patient's medical records. Screening: Per USPSTF and CDC recommendations, given the prevalence of disease in our region, it is our hospital?s policy to screen for HIV and viral Hepatitis for all patients aged 18 and over and those with ongoing risk factors. Jake Inquiry Pt receiving controlled substance: No Jake was queried for this patient: No Vital Signs: 11/11/24 14:19 11/11/24 15:37 11/11/24 15:45 Temperature 98.3 F Temperature Source Oral Pulse Rate 92 H 94 H Pulse Rate [Radial] 89 Respiratory Rate 16 18 Blood Pressure 170/96 H 133/84 Blood Pressure [Right Arm] 124/75 Blood Pressure Mean [Right Arm] 91 Blood Pressure Source [Right Arm] Automatic Cuff 02 Sat by Pulse Oximetry 100 97 99 Oxygen Delivery Method Room Air Room Air 11/11/24 16:33 Temperature Temperature Source Pulse Rate 94 H Pulse Rate [Radial] Respiratory Rate Blood Pressure 105/85 L Blood Pressure [Right Arm] Blood Pressure Mean [Right Arm] Blood Pressure Source [Right Arm] 02 Sat by Pulse Oximetry 98 Oxygen Delivery Method Room Air Lab Data Lab results reviewed: Yes I reviewed the patient's lab results. Lab Results 11/11/24 14:20: SARS-CoV-2 (PCR) Not detected, Influenza A Untype (PCR) Detected A, Influenza Type B (PCR) Not detected 11/11/24 16:00: WBC 3.7 L, RBC 4.77, Hgb 14.2, Hct 42.8, MCV 89.7, MCH 29.8, MCHC 33.2, RDW 14.0, Plt Count 121 L, MPV 9.5, Neut % (Auto) 72.9, Lymph % (Auto) 13.4, Crane % (Auto) 11.0 H, Eos % (Auto) 1.6, Baso % (Auto) 0.8, Neut # (Auto) 2.7, Lymph # (Auto) 0.5 L, Crane # (Auto) 0.4, Eos # (Auto) 0.1, Baso # (Auto) 0.0, Sodium 140, Potassium 3.8, Chloride 107, Carbon Dioxide 26, Anion Gap 10.8, BUN 14, Creatinine 0.70, Estimated Creat Clear 142, Estimated GFR 88, Est GFR ( Amer) 106, Glucose 101 H, Calcium 8.7, Total Bilirubin 0.3, AST 44 H, ALT 32, Alkaline Phosphatase 68, C-Reactive Protein 14.7 H, Total Protein 6.3, Albumin 4.0, Globulin 2.3, Albumin/Globulin Ratio 1.7, Procalcitonin 0.059 11/11/24 16:40: Lactate 2.1 11/11/24 16:00 11/11/24 16:00 Orders (Tests/Meds): ORDERS Category Date Time Status CRP [C-Reactive Protein] Stat Lab 11/11/24 16:00 Completed Complete Blood Count Auto Diff Stat Lab 11/11/24 16:00 Completed Comprehensive Metabolic Panel Stat Lab 11/11/24 16:00 Completed Lactic Acid Stat Lab 11/11/24 16:40 Completed Procalcitonin Stat Lab 11/11/24 16:00 Completed Rapid PCR Covid and Flu A/B Stat Lab 11/11/24 14:20 Completed Blood Culture Stat Micro 11/11/24 17:06 Received Medical Decision Narrative: [id number] female presents the emergency department with left arm pain rash, generalized malaise differential diagnose include but not limited to cellulitis, herpes zoster, antibiotic skin reaction, lymphangitis. I discussed patient case with attending physician Dr. Fung she saw and examined the patient as well. Will obtain basic laboratory studies, CRP, procalcitonin, blood cultures and lactic acid level, patient was swabbed for URI in the triage, positive for influenza. This would explain the URI type symptomatology. CBC is notable for leukopenia at 3.7, thrombocytopenia 121. No lactic acidosis CMP is notable for minimal elevation of AST at 44, could correspond with ongoing influenza infection CRP is notable for 14.7 which is elevated Procalcitonin within normal limits. I discussed these results with the patient family bedside patient and family are in agreement with current treatment plan/discharge plan will treat the patient with acyclovir p.o. as prescribed for herpes zoster prophylaxis due to the dermatomal pattern/nature of the patient's rash, unknown if herpetic robert was I&D, however I will also add MRSA coverage with Bactrim p.o.'s, for 5 days, patient will take medication as prescribed, continue clindamycin as prescribed, return emerged part with any worsening signs or symptoms. Patient family voiced understanding with current plan/discharge plan. Will follow-up with PCP as directed. Critical Care Critical Care Time Critical Care Time: No
[2024-11-11 16:33] VITALS: BP 105/85; PULSE 94; O2SAT 98
[2024-11-11 16:33] LABS: Alanine Aminotransferase 32 U/L (12-78); Albumin/Globulin Ratio 1.7 (1.1-1.8); Alkaline Phosphatase 68 U/L (38-126); Anion Gap 10.8 mEq/L (5-15); Aspartate Amino Transferase 44 U/L (14-36); Bilirubin,Total 0.3 mg/dl (0.2-1.3); Blood Urea Nitrogen 14 mg/dl (7-17); Calcium 8.7 mg/dl (8.4-10.2); Carbon Dioxide 26 mmol/L (22.0-30.0); Chloride 107 mmol/L (98-107); Creatinine Clearance Estimated 142 mL/min (50-200); Estimated Glomerular Filt Rate 88 ml/min (>60); GFR (African American) 106 ML/MIN (>60); Globulin 2.3 g/dL (1.3-3.2); Glucose 101 mg/dl (74-100); Potassium 3.8 mmoL/L (3.5-5.1); Sodium 140 mmol/L (136-145); Total Protein,Serum 6.3 g/dl (6.3-8.2)
[2024-11-11 16:57] LABS: Lactic Acid 2.1 mmol/L (0.7-2.1)
[2024-11-11 17:06] LABS: C-Reactive Protein 14.7 mg/L (0-4)
[2024-11-11 17:18] LABS: Procalcitonin 0.059 ng/mL (0.0-2.0)
[2024-11-11 18:00] VITALS: BP 105/85; PULSE 85; RESP 16; TEMP 36.7
[2024-11-11 20:41] LABS: Reflex Lactic Add Lactic Reflex
== END 2024-11-11 18:01 | disposition home or self-care (01) ==
PROVIDERS: Physician Assistant; Student in an Organized Health Care Education/Training Program; Emergency Provider Emergency Medicine; PCP Nurse Practitioner Family
DX: L03.114 Cellulitis of left upper limb (principal); J10.1 Influenza due to other identified influenza virus with other respiratory manifestations; R21 Rash and other nonspecific skin eruption; R05.9 Cough, unspecified; R09.81 Nasal congestion; R50.9 Fever, unspecified
CPT/HCPCS: 80053; 83605; 84145; 85025; 86140; 87040; 87636; 99283

== ENCOUNTER 2025-01-03 12:55 | Outpatient (CLI) | payer BC, SELFPAY ==
--- NOTE | 2025-01-03 12:59 | XR_ITS ---
FINAL REPORT CLINICAL HISTORY: Left shoulder pain for 1 year, hx of breast ca FINDINGS: LEFT SHOULDER AP and axillary views of the shoulder were obtained. There is no acute fracture or dislocation. Visualized joint spaces are normally aligned. There is mild AC degenerative joint disease. Soft tissues are unremarkable. IMPRESSION: No acute bony abnormality. Reviewed, Interpreted and Dictated by Denise Amin MD Transcribed by Anitra Velásquez Authenticated and [facility]
== END 2025-01-03 23:59 | disposition home or self-care (01) ==
LOC: RAD 12:56
PROVIDERS: PCP Nurse Practitioner Family; Visit Provider Physician Assistant Surgical
DX: M25.512 Pain in left shoulder (principal)
CPT/HCPCS: 73030

== ENCOUNTER 2025-01-25 07:12 | Outpatient (CLI) | payer BC, SELFPAY ==
--- NOTE | 2025-01-25 07:30 | MR_ITS ---
FINAL REPORT TECHNIQUE: Multiplanar and multisequence imaging of the shoulder was obtained without contrast. CLINICAL HISTORY: lt shoulder and neck pain. prior hx breast cancer. pain in left shoulder. COMPARISON: None FINDINGS: Bones/Joint: Bone marrow signal intensity is normal. There is no fracture, edema, or pathologic marrow replacement. The AC joint is intact. Rotator Cuff: There is no full thickness rotator cuff tear. The supraspinatus tendon is intact. There is a partial-thickness articular sided infraspinatus tear, involving slightly greater than 50% of the thickness of that tendon. The subscapularis tendon is intact. There is no fatty atrophy of the rotator cuff musculature. Labrum: No labral tear is identified. The biceps labral complex is intact. The glenohumeral ligaments are intact. Other: The more distal biceps tendon is located within the bicipital groove. There is no significant joint effusion. Remaining soft tissues are within normal limits. IMPRESSION: Partial-thickness articular sided tear of the infraspinatus tendon, involving slightly greater than 50% of the thickness of that tendon. Reviewed, Interpreted and Dictated by Denise Amin MD Transcribed by Manda Giles Authenticated and [facility]
== END 2025-01-25 23:59 | disposition home or self-care (01) ==
LOC: RAD 07:13
PROVIDERS: PCP Nurse Practitioner Family; Visit Provider Physician Assistant Surgical
DX: M75.112 Incomplete rotator cuff tear or rupture of left shoulder, not specified as traumatic (principal)
CPT/HCPCS: 73221

== ENCOUNTER 2025-02-14 17:00 | Outpatient (CLI) | payer BC, SELFPAY ==
[2025-02-14 14:27] LABS: Alanine Aminotransferase 24 U/L (12-78); Albumin Level 4.4 g/dl (3.5-5.0); Albumin/Globulin Ratio 1.8 (1.1-1.8); Alkaline Phosphatase 71 U/L (38-126); Anion Gap 9.3 mEq/L (5-15); Aspartate Amino Transferase 25 U/L (14-36); Bilirubin,Total 0.9 mg/dl (0.2-1.3); Blood Urea Nitrogen 22 mg/dl (7-17); Carbon Dioxide 25 mmol/L (22.0-30.0); Chloride 107 mmol/L (98-107); Estimated Glomerular Filt Rate 87 ml/min (>60); GFR (African American) 106 ML/MIN (>60); Globulin 2.4 g/dL (1.3-3.2); Glucose 78 mg/dl (74-100); Potassium 4.3 mmoL/L (3.5-5.1); Sodium 137 mmol/L (136-145); Total Protein,Serum 6.8 g/dl (6.3-8.2)
[2025-02-14 14:38] LABS: T4 (Thyroxine) 7.4 ug/dl (5.53-11.0)
[2025-02-14 14:52] LABS: Thyroid Stimulating Hormone 9.14 uIU/mL (0.465-4.68)
[2025-02-15 12:16] LABS: Triiodothyronine (T3) Free 1.9 pg/mL (2.0-4.4)
== END 2025-02-14 23:59 | disposition home or self-care (01) ==
LOC: LAB.DROPOF 17:00
PROVIDERS: PCP Nurse Practitioner Family; Visit Provider Nurse Practitioner Family
DX: E03.9 Hypothyroidism, unspecified (principal); R25.2 Cramp and spasm
CPT/HCPCS: 80053; 84436; 84439; 84443; 84481

== ENCOUNTER 2025-05-01 11:00 | Outpatient (CLI) | payer BC, SELFPAY ==
[2025-05-01 14:10] LABS: Free T4 (Free Thyroxine) 1.35 ng/dl (0.78-2.19)
[2025-05-01 22:30] LABS: T4 (Thyroxine) 9.3 ug/dl (5.53-11.0)
[2025-05-01 22:43] LABS: Thyroid Stimulating Hormone 2.39 uIU/mL (0.465-4.68)
[2025-05-02 08:13] LABS: Triiodothyronine (T3) Free 2.7 pg/mL (2.0-4.4)
--- OUTSIDE RECORDS SUMMARY | 2025-05-02 12:10 | XMS_ITS | Clinical Summary ---
Author Organization [facility] Address [address] [place] [address] Care Team Providers Care Public Accountant Name Role Phone Sriram Gee MD Primary Care Provider [phone] Allergies Active Allergy Reactions Criticality Noted Date Comments Fluticasone-Salmeterol Rash Low 03/16/2021 Ondansetron Nausea Low 07/14/2019 Penicillins Other - please docum ent in the comment field,Unknown - Patient states they do not know rxn details,Rash Low 01/24/2014 unknown Salmeterol Other - please docum ent in the comment field Low 08/24/2023 Medications omeprazole (PriLOSEC) [address] capsule Take 1 capsule (20 mg) by mouth 1 (one) time each day if needed. 0 Active meloxicam (Mobic) 7.5 MG tablet Take 1 tablet (7.5 mg total) by mouth 1 (one) time each day if needed (joint pain). 30 tablet 3 2 Active methocarbamol (Robaxin) 500 MG tablet Take 1 tablet (500 mg total) by mouth 3 (three) times a day. 90 tablet 3 2 Active promethazine (Phenergan) 12.5 MG tablet Take 1 tablet (12.5 mg total) by mouth every 8 (eight) hours if needed for nausea or vomiting. 15 tablet 3 Active Synthroid 137 MCG tablet Take 1 tablet (137 mcg) by mouth daily. 4 Active DULoxetine (Cymbalta) [address] capsule Take 1 capsule by mouth daily. 30 capsule 5 05/19/20 25 Active DULoxetine (Cymbalta) [address] capsule Take 1 capsule by mouth daily. 30 capsule 5 04/19/20 25 Discontinu ed(Reorder ) Active Problems Problem Noted Date Diagnosed Date Postoperative hypothyroidism 11/16/2023 Thyroid cancer 11/17/2022 Status post bilateral breast reconstruction 03/2023 Acquired absence of both breasts 11/05/2022 Hematoma of breast 08/06/2022 Overview (11/06/2022): Added automatically from request for surgery [id number] Capsular contracture of breast implant Overview (06/03/2021): Added automatically from request for surgery [id number] Malignant neoplasm of upper- inner quadrant of left breast in female, estrogen receptor positive 05/21/2021 Cancer Staging:Pathologic stage from 12/02/2017:Stage IIIB(pT3, pN3a, cM0, G3, ER+, AK+, HER2-) - Signed by Viridiana Escalante MD on 05/22/2021 Neuropathy 08/26/2020 Allergic reaction 07/21/2019 Breast reconstruction deformity 07/14/2019 Overview (06/03/2021): Deformity of reconstructed breast Malignant neoplasm of centra l portion of left breast in female, estrogen receptor positive 01/18/2018 Overview (06/03/2021): Malignant neoplasm of central portion of left female breast Malignant neoplasm of left breast 12/02/2017 Overview (06/03/2021): Malignant neoplasm of unspecified site of left female breast Breast cancer, female 11/05/2017 Encounters Date Type Department Care Team Description 04/19/2025 Orders Only [facility] [address] [facility]nd [place] [address] Sugey Bernstein RN 03/21/2025 Orders Only [facility] [address] [facility] [place] [address] Sugey Bernstein RN from Last 3 Months Immunizations Immunization Administration Dates Next Due Influenza, injectable, quadrivalent, preservativ e free 01/10/2018 Pneumococcal Polysaccharide PPV23 01/10/2018 Family History Medical History Relation Name Comments Diabetes Brother Cancer Father Thyroid disease Father Breast cancer Other 1 Ovarian cancer Other 1 Thyroid disease Other 2 Anesthesia problems Neg Hx Relation Name Status Comments Brother Father Other 1 Other 2 Alive Social History Tobacco Use Types Packs/Day Years Used Date Smoking Tobacco: Former Cigarettes 0.3 14 0 06/2008 - 06/2022 Smokeless Tobacco: Never Tobacco Cessation:Counseling Given: Not Answered Comments:Has started and quit multiple time over the years Alcohol Use Standard Drinks/Week Comments No 0 (1 standard drink = 0.6 oz pure alcohol) Alcoholic Drinks/day: No history of alcohol use PHQ-2 Answer Date Recorded Patient Health Questionnaire-2 Score 0 12/06/2024 PHQ-9 Answer Date Recorded Patient Health Questionnaire-9 Score 0 12/06/2024 Comments No Sex and Gender Information Value Date Recorded Sex Assigned at Female 08/26/2021 2:42 PM EST Legal Sex Female 8:02 PM EDT Gender Identity Female 08/26/2021 2:42 PM EST Sexual Orientation Straight 08/26/2021 2 :42 PM EST Last Filed Vital Signs Vital Sign Reading Time Taken Comments Blood Pressure 115/77 12/26/2024 3:33 PM EDT Pulse 82 12/26/2024 3:33 PM EDT Temperature 36.8 C (98.3 F) 12/06/2024 2:03 PM EST Respiratory Rate 14 03/29/2024 1:30 PM EDT Oxygen Saturation 97% 12/26/2024 3:33 PM EDT Inhaled Oxygen Concentration - - Weight 99 kg (218 lb 4.1 oz) 12/26/2024 3:33 PM EDT Height 175.3 cm (5' 9 ) 12/26/2024 3:33 PM EDT Body Mass Index 32.23 12/26/2024 3:33 PM EDT Plan of Treatment Upcoming Encounters Date Type Department Care Team (Late st Contact Info) Description 05/22/2025 2:30 PM EDT Office Visit [facility] [address] [place] [phone] Chrissie Nielsen MD [address] [place] [address] 12/25/2025 1:00 PM EDT Office Visit [facility] [address] [facility]nd [place] [address] Yohana Mensah, INFORMATICS COORDINATOR [address] [place] [address] Health Maintenance Due Date Last Done Comments [facility]-/Child/Adol SDOH Screenings 1970 [id number] Vaccine (#1) 1975 [facility]- SDOH Screenings 1988 [facility]-Adult SDOH Screenings 1988 [facility]-DTaP,Tdap,and Td Vaccines (1 - Tdap) 1989 [facility]-Hepatitis B Vaccines (1 of 3 - 19+ 3-dose series) 1989 [facility]-Zoster Vaccines (1 of 2) 1989 CT Colonography 2015 Colonoscopy 2015 FIT-DNA 2015 FIT 2015 FOBT 2015 Sigmoidoscopy 2015 [facility]-Colorectal Cancer Screening 2015 [facility]-Pneumococcal Vaccine: 50+ Years (3 of 3 - PPSV23, PCV20 or PCV21) 01/10/2023 01/10/2018, 02/26/2015 [facility]-Influenza Vaccine (#1) 2025 01/10/2018, [facility]-Depression Screening 12/06/2025 12/06/2024, 11/13 [facility]-Cervical Cancer Screening Discontinued [facility]-HPV/Cotest Discontinued 11/03/2017, 11/13, 08/25/2011, Additional history exists [facility]-Pap Smear Discontinued 11/03/2017, 11/13, 08/25/2011, Additional history exists [facility]-HIV Screening Completed 03/29/2024, 03/16/2021 [facility]-Hepatitis C Screening Completed 2023, 03/16/2021, 04/26/2020, Additional history exists [facility]-Obesity Intervention Completed 025, 12/26/2024, 11/16/2023, Additional history exists HPV Vaccines Aged Out No longer eligi ble based on patient's age to complete this topic [facility]-HIB Vaccines Aged Out No longer e ligible based on patient's age to complete this topic [facility]-Hepatitis A Vaccines Aged Out No longer eligible based on patient's age to complete this topic [facility]-IPV Vaccines Aged Out No longer e ligible based on patient's age to complete this topic [facility]-Rotavirus Vaccines Aged Out No lo nger eligible based on patient's age to complete this topic Medical Devices Implanted Type Area Supervisor Hydrochloric Area Device Identifier Shelf Expiration Date Model / Serial / Lot Breast Implants Bilateral: Breast Graft Nerve Avance 70mm 2-3mm - [id number] Implanted:Qty: 1 on 11/05/2022 by Chrissie Nielsen MD at [facility] Breast [employer] [id number] 03/11/2025 [id number] / / [id number] Graft Nerve Avance 70mm 2-3mm - [id number] Implanted:Qty: 1 on 11/05/2022 by Chrissie Nielsen MD at [facility] Breast [employer] [id number] 06/11/2025 [id number] / / [id number] Mesh Strattice 10x10 - [id number] Implanted:Qty: 1 on 11/05/2022 by Chrissie Nielsen MD at [facility] Abdomen [id number] 03/11/2024 [id number] / / [id number] Procedures Procedure Name Priority Date/Time Associated Diagnosis Comments HEPATITIS C ANTIBODY - ED W/REFLEX TO HCV QUANT PCR STAT 03/29/2024 10:03 AM EDT ED HIV 1/2 ANTIBODY/ANTIGEN SCREEN WITH REFLEX TO HIV I/II DIFFERENTIATION STAT 03/29/2024 10:03 AM EDT CYTO DATA CONVERSION Routine 11/03/2017 12:00 AM EST from Last 3 Months or Most Recently Relevant to Health Maintenance Results * ED HIV 1/2 Antibody/Antigen Screen w/Reflex to HIV 1/2 Differentiation (03/29/2024 10:03 AM EDT) HIV 1 & 2 Antibody/Antigen Screen Non Reactive Non Reactive 03/29/2024 11:09 AM EDT [facility] Comment:Screening for HIV 1 & 2 antibodies, and P24 antigen is NONREACTIVE. No confirmatory testing is required. Blood Venous blood specimen / Unknown Venipuncture / Unknown 03/29/2024 10:03 AM EDT 03/29/2024 10:26 AM EDT Eyad Walker MD LAB BLOOD ORDERABLES Final Result [facility] [address] [place] [address] * Hepatitis C Antibody - ED (03/29/2024 10:03 AM EDT) Hepatitis C Antibody Negative Negative 03/29/2024 11:09 AM EDT [facility] Blood Venous blood specimen / Unknown Venipuncture / Unknown 03/29/2024 10:03 AM EDT 03/29/2024 10:26 AM EDT Eyad Walker MD LAB BLOOD ORDERABLES Final Result [facility] [address] [place] [address] * Cytology (11/03/2017 12:00 AM EST) Specimen from axillary lymph node obtained by fine needle aspiration biopsy (specimen) 11/03/2017 11/03/2017 2:59 PM EST Narrative [facility] - 11/04/2017 6:20 PM EST [facility] MR #: [id number] [facility] [place], [place] [address] 1970 (Age: 46) FW Collect Date: 11/03/2017 00:00 Receipt Date: 11/03/2017 14:59 Page 1 DEPARTMENT OF PATHOLOGY AND LABORATORY MEDICINE CYTOPATHOLOGY REPORT Email: [email or web address] ATTENDING MD/Practitioner: Nadia Gipson M.D. Service: [facility] Location: [facility] OTHER MD(S): Kirstin Wills MD Reported: 11/04/2017 18:20 Collected: 11/03/2017 00:00 DIAGNOSIS LEFT AXILLARY LYMPH NODE, ULTRASOUND GUIDED FNA (SMEARS AND CONCENTRATE): - POSITIVE FOR MALIGNANCY, METASTATIC ADENOCARCINOMA, SEE COMMENT. COMMENT Only a small amount of tumor is present on the DQ stained slides from passes 5 and 7, which represent the additional FNA specimens, and in the concentrate. As there is a limited amount of tumor, the possibility of micrometastasis could be considered. Electronically Signed Out Fouzia Branch MD JCD PROCEDURES/ADDENDA GROSS DESCRIPTION: 5 ml's of bloody fluid. CLINICAL INFORMATION: CLINICAL DIAGNOSIS Current left breast, previous thyroid 2 years ago. FNA performed by: Dr. Gipson Number of sticks: 7 Immediate evaluation performed by: Dr. Branch/ [place] Evaluation episode # 1-4: Adipose tissue and blood; no lymphoid tissue; recommend additional passes This service has been rendered in part by a resident. A pathologist has personally reviewed the slides/tissue and has rendered and is responsible for the diagnosis that appears on the report. SPECIMEN DESCRIPTION: A: LYMPH NODE, LEFT, FNA AXILLARY NODE DIFF-QUIK x 7, PAP STAIN x 7, THIN PREP PROCESS CELLULAR ENHANCEMENT ICD: C77.3 Sec and unsp malig neoplasm of axilla and upper limb nodes F: A; 70556 ASP INTER, 47015, 92466, 87854 SNOMED CODES: A; [id number] P1149 [id number] A resident has participated in this service. A pathologist has performed and is responsible for the reported pathologic evaluation. Kaushal Gipson MD LAB PATHOLOGY ORDERABLES Salud joe Result [facility] from Last 3 Months or Most Recently Relevant to Health Maintenance [place] [address] [address] [place] [address] Advance Directives * Full Code (Latest Code Status on File) Date Activated Date Inactivated Comments 11/05/2022 7:53 AM 11/09/2022 2:55 PM Question Answer Comments Patient has decision-making capacity? Yes Care Teams Public Accountant Relationship Specialty Start Date End Date Sriram Gee MD [address] [place] [address] PCP - General 03/16/21
--- OUTSIDE RECORDS SUMMARY | 2025-05-02 12:10 | XMS_ITS ---
Author Organization [facility] Address [address] [place] [address] Care Team Providers Care Oracle Bpm Developer Name Role Phone Sriram Gee MD Primary Care Provider [phone] Active Problems Problem Noted Date Diagnosed Date Postoperative hypothyroidism 11/16/2023 Thyroid cancer 11/17/2022 Status post bilateral breast reconstruction 03/2023 Acquired absence of both breasts 11/05/2022 Hematoma of breast 08/06/2022 Overview (11/06/2022): Added automatically from request for surgery [id number] Capsular contracture of breast implant Overview (06/03/2021): Added automatically from request for surgery [id number] Malignant neoplasm of upper- inner quadrant of left breast in female, estrogen receptor positive 05/21/2021 Cancer Staging:Pathologic stage from 12/02/2017:Stage IIIB(pT3, pN3a, cM0, G3, ER+, NE+, HER2-) - Signed by Viridiana Escalante MD [...] left female breast Breast cancer, female 11/05/2017 Current Treatment and Therapy Plans No current plan information found. Past Treatment and Therapy Plans Infusion Treatment 1 Plan Name Start Date Discontinue Date Treatment Medications Discontinue Reason Plan Provider (HEM/ONC) ZOLEDRONIC ACID 05/22/2021 05/29/2022 No medications scheduled. Therapy Complete Viridiana Escalante MD
--- OUTSIDE RECORDS SUMMARY | 2025-05-02 12:10 | XMS_ITS | Encounter Summary ---
Author Organization Healthcare Address [address] [place] [address] Care Team Providers Care Nursing Care Attendant Name Role Phone Sriram Gee MD Primary Care Provider Encounter Details Date Type Department Care Team (Late Contact Info) Description 03/21/2025 Orders Only [facility] [address] [facility], [address] [place] [address] Sugey Bernstein RN [facility] Social History Tobacco Use Types Packs/Day Years Used Date Smoking Tobacco: Former Cigarettes 0.3 14 0 06/2008 - 06/2022 Smokeless Tobacco: Never Comments:Has started and norma t multiple time over the years Alcohol Use [...] 2:42 PM EST Sexual Orientation Straight 08/26/2021 2: 42 PM EST documented as of this encounter Plan of Treatment Upcoming Encounters Date Type Department Care Team (Late Contact Info) Description 05/22/2025 2:30 PM EDT Office Visit [facility] [address] [place] [phone] Chrissie Nielsen MD [address] [place] [address] 12/25/2025 1:00 PM EDT Office Visit [facility] [address] [facility], [address] [place] [address] Yohana Mensah, FOOD SAFETY OFFICER [address] [facility] [address] [place] [address] documented as of this encounter Visit Diagnoses Not on filedocumented in this encounter Additional Health Concerns Assessment Noted Time PHQ-9 Depression Total Score: 0 12/06/19 1:56 PM EST A fall risk assessment has been complete d for the patient 12/06/2024 1:57 PM EST A Body Mass Index follow-up plan has been documented for the patient 01/31/2025 4:41 PM EDT documented as of this encounter Care Teams Nursing Care Attendant Relationship Specialty Start Date End Date Sriram Gee MD [address] [facility] [place] [address] PCP - General 03/16/21 documented as of this encounter
--- OUTSIDE RECORDS SUMMARY | 2025-05-02 12:11 | XMS_ITS | Clinical Summary ---
Author Organization [facility] Address [address] [place] [address] Care Team Providers Care Wireless Network Engineer Name Role Phone Sriram Gee MD Primary Care Provider + Allergies Active Allergy Reactions Criticality Noted Date Comments Fluticasone-Salmeterol Rash Low 04/20/2023 Ondansetron Nausea And Vomiting 04/20/2023 Medications levothyroxine (SYNTHROID, LEVOTHROID) 125 MCG tablet Take 1 tablet by mouth Daily. Active DULoxetine (CYMBALTA) 60 MG capsule Take 1 capsule by mouth Daily. Active meloxicam (MOBIC) 7.5 MG tablet Take 1 tablet by mouth Daily As Needed. Active methocarbamol (ROBAXIN) 500 MG tablet Take 1 tablet by mouth Continuous As Needed for Muscle Spasms. Active Social History Tobacco Use Types Packs/Day Years Used Date Smoking Tobacco: Former Cigarettes Tobacco Cessation:Counseling Given: Not Answered Alcohol Use Standard Drinks/Week Comments Not Currently 0 (1 standard drink = 0.6 oz pur e alcohol) Abuse Screen Answer Date Recorded Unsafe at Home or Work/School Not on file Feels Threatened by Someone? Not on file 09/2024 Does Anyone Keep You from Co ntacting Others or Doint Things Outside the Home? Not on file 04/22/2024 Physical Sign of Abuse Present Not on file 0 04/22/2024 Housing Stability Answer Date Recorded Current Living Arrangements Not on file 07/12 Potentially Unsafe Housing Conditions Not on josé miguel e 07/21/2023 Family and Community Support Answer Neel e Recorded Help with Day-to-Day Activities Not on file 07/21/2023 Lonely or Isolated Not on file 07/21/2023 Employment Answer Date Recorded Do you want help finding or keeping work or a sebas b? Not on file 07/21/2023 Disabilities Answer Date Recorded Concentrating, Remembering, or Making Decisions Difficulty Not on file 07/21/2023 Doing Errands Independently Difficulty Not on fi le 07/21/2023 Education Answer Date Recorded Help with school or training? Not on file Preferred Language Not on file 07/21/2023 Comments No Sex and Gender Information Value Date Recorded Sex Assigned at Not on file Legal Sex Female 1:50 PM EDT Gender Identity Not on file Sexual Orientation Not on file Last Filed Vital Signs Vital Sign Reading Time Taken Comments Blood Pressure 114/83 04/20/2023 7:00 PM EDT Pulse 53 04/20/2023 7:00 PM EDT Temperature 36.6 C (97.8 F) 04/20/2023 2:03 PM EDT Respiratory Rate 18 04/20/2023 2:03 PM EDT Oxygen Saturation 96% 04/20/2023 7:00 PM EDT Inhaled Oxygen Concentration - - Weight 85.7 kg (189 lb) 04/20/2023 2:03 PM EDT Height 175.3 cm (5' 9 ) 04/20/2023 2:03 PM EDT Body Mass Index 27.91 04/20/2023 2:03 PM EDT Plan of Treatment Health Maintenance Due Date Last Done Comments ANNUAL PHYSICAL 1970 Annual Gynecologic Pelvic an d Breast Exam 1970 HEPATITIS C SCREENING 1970 TDAP/TD VACCINES (1 - Tdap) 1989 MAMMOGRAM 2010 COLOGUARD 2015 COLON CANCER SCREENING 5 YEA R SIGMOIDOSCOPY 2015 COLONOSCOPY [address] CANCER SCREENING 2015 CT COLONOGRAPHY 2015 FECAL OCCULT BLOOD TEST 2015 FIT Testing (1 year) 2015 ZOSTER VACCINE (1 of 2) 2020 Pneumococcal Vaccine 50+ (3 of 3 - PCV20 or PCV21) 01/10/2023 01/10/2018, 02/26/2015 COVID-19 Vaccine ( season) 2024 INFLUENZA VACCINE 07/12/2025 01/10/2018, , 11/02/2013 Insurance [employer] Care Teams Wireless Network Engineer Relationship Specialty Start Date End Date Sriram Gee MD [address] [place] [address] PCP - General Family Medicine 04/20/23
--- OUTSIDE RECORDS SUMMARY | 2025-05-02 12:11 | XMS_ITS | Encounter Summary ---
Author Organization Healthcare Address [address] [place] [address] Care Team Providers Care Toggle Press Operator Name Role Phone Sriram Gee MD Primary Care Provider [phone] Encounter Details Date Type Department Care Team (Late Contact Info) Description 04/19/2025 Orders Only [facility] [address] [facility], [address]nd [place] [address] Sugey Bernstein RN [facility] [...] Description 05/22/2025 2:30 PM EDT Office Visit [facility] [address] [place] [phone] Chrissie Nielsen MD [address] [place] [address] 12/25/2025 1:00 PM EDT Office Visit [facility] [address] [facility], [address]nd [place] [address] Yohana Mensah, ATHLETIC TRAINER [address] [facility] [address] [place] [address] documented as of this encounter [...] documented as of this encounter Care Teams Toggle Press Operator Relationship Specialty Start Date End Date Sriram Gee MD [address] [facility] [place] [address] PCP - General 03/16/21 documented as of this encounter
--- OUTSIDE RECORDS SUMMARY | 2025-05-02 12:11 | XMS_ITS | Data Portability ---
Author Organization [facility] Address [address] [place] [address] Assessment No assessment recorded. Plan of Treatment Reminders Order Date Submit Date Provider Last Modified By Organization Details Last Modified Time Details Appointments None recorded. Lab urinalysis, dipstick 2022 023 [facility], [address] [place] [address], [phone], 3 11:58:30 culture, urine 2022 023 JONAH [facility], [address], [address] [address], [place], [address], 3 03:05:56 CBC w/ auto diff 2022 023 JONAH [facility], [address], [place] [address], [place], [address], 3 03:05:54 CMP, serum or plasma 2022 023 JONAH [facility], [address], [place] [address], [place], [address], 3 03:05:55 urinalysis, dipstick 2022 023 [facility], [address] [place] [address], [address], 3 13:30:57 culture, urine 2022 023 BUNNELL [facility], [address], [place] [address], [place], [address], 3 00:06:12 culture, urine 2021 022 BUNNELL [facility], [address], [place] [address], [place], [address], 2 06:15:00 urinalysis, dipstick 2021 022 [email or web address] [employer], [address] [place] [address] , [place], [address], 2 10:14:27 rapid SARS CoV + SARS CoV 2 Ag, QL IA, respiratory specimen 2021 [facility], [address] [place] [address], [id number], 2 08:19:25 rapid flu (A+B) 2021 [facility], [address] [place] [address], [phone], 08:19:25 Referral None recorded. Procedures None recorded. Surgeries None recorded. Imaging CT, abdomen + pelvis, w/ contrast - r/o complicatio n to surgery? fistula, hx of breast ca with mets, poss mets? needs oral contrast 2022 023 [facility], [address] [place] [address] , [place], [address], 3 09:23:03 Medication Orders fluticasone propionate 50 mcg/actuati on nasal spray,suspe nsion 2023 024 [facility]NE[facility]79468, [address] [address], [place], [place], [id number], 4 15:50:39 Zithromax Z-Gigi 250 mg tablet 2023 024 [email or web address]50783, [address], [id number], 4 15:50:37 dexamethaso ne sodium phosphate 4 mg/mL injection solution 2023 024 [email or web address] Not available 4 15:53:08 prednisone 10 mg tablet 2023 024 [facility] #38256, [address], [id number], 4 15:50:38 cephalexin 500 mg capsule 2022 023 [facility]44219, [address], [id number], 3 10:34:50 dexamethaso ne sodium phosphate 4 mg/mL injection solution 2022 023 [email or web address] Not available 3 10:34:39 Macrobid 100 mg capsule [address], [address], 3 13:04:12 ceftriaxone 1 gram solution for injection 2021 [email or web address], [address], 2 09:49:02 cefdinir 300 mg capsule [email or web address], [address], 4 15:18:37 Patient TargetsNo targets recorded. Patient Instructions Encounter Date Encounter Id Patient Instructions Last Modified By Organization Details Last Modified Time 03/13/2023 [id number] body mass index: care instructions efryman Not available 03/13/2023 13:30:57 learning about healthy weight efryman Not available 03/13/2023 13:30:58 Reason for Referral None Reported. Results Created Date Observation Date Name Description Value Unit Range Abnormal Flag Note LastModifiedBy Organization Detail LastModifiedTime 07/21/20 22 07/21/2022 rapid flu (A+B) Flu negati ve Not Available [address], [address], 07/21/2022 16:27:12 07/21/20 22 07/21/2022 rapid flu (A+B) Type Both A & B Not Available [address], [address], 07/21/2022 16:27:12 07/21/20 22 07/21/2022 rapid SARS CoV + SARS CoV 2 Ag, QL IA, respi rator y speci men SARS CoV antigen Negati ve Not Available [address], [address], 07/21/2022 16:26:52 09/11/20 22 09/13/2022 URINE CULTU REJAMI NE urine culture, routine Final report Not Available [facility] ([facility]) [address] [place], [address], 09/13/2022 06:15:00 09/11/20 22 09/13/2022 URINE CULTU REJAMI NE result 1 Commen t Mixed uroge nital syl 10,00 0-25, 000 colon y formi ng units per mL Not Available [facility] ([facility]) [address] [place], [address], 09/13/2022 06:15:00 09/11/20 22 09/11/2022 urina lysis , dipst ick Leukocytes Negati ve Not Available [employer] [address] [place] [address] , [place], [address], 09/11/2022 09:45:12 09/11/20 22 09/11/2022 urina lysis , dipst ick Nitrite positi ve Not Available [facility]/[address] , [place], [address], 09/11/2022 09:45:12 09/11/20 22 09/11/2022 urina lysis , dipst ick Urobilinogen .[address] [facility] [employer] [address] [place] [address] , [place], [address], 09/11/2022 09:45:12 09/11/20 22 09/11/2022 urina lysis , dipst ick Protein Negati ve Not Available [facility]/[address] , [place], [address], 09/11/2022 09:45:12 09/11/20 22 09/11/2022 urina lysis , dipst ick pH 5.0 Not Available [facility]/[address] , [place], [address], 09/11/2022 09:45:12 09/11/20 22 09/11/2022 urina lysis , dipst ick Blood Modera te Not Available [facility]/[address] , [place], [address], 09/11/2022 09:45:12 09/11/20 22 09/11/2022 urina lysis , dipst ick Specific Gibbon 1.005 Not Available [facility] [address] [place] [address] , [place], [address], 09/11/2022 09:45:12 09/11/20 22 09/11/2022 urina lysis , dipst ick Ketone Negati ve Not Available [employer] [address] [place] [address] , [place], [address], 09/11/2022 09:45:12 09/11/20 22 09/11/2022 urina lysis , dipst ick Bilirubin Negati ve Not Available [employer] [address] [place] [address] , [place], [address], 09/11/2022 09:45:12 09/11/20 22 09/11/2022 urina lysis , dipst ick Glucose Negati ve Not Available [facility]/[address] , [place], [address], 09/11/2022 09:45:12 09/11/20 22 09/11/2022 urina lysis , dipst ick Appearance Slight ly Cloudy Not Available [address] , [place], [address], 09/11/2022 09:45:12 09/11/20 22 09/11/2022 urina lysis , dipst ick Color Yellow Not Available [facility]/[address] , [place], [address], 09/11/2022 09:45:12 03/13/20 23 03/19/2023 URINE CULTU RE, JAMI NE urine culture, routine Final report abnormal Not Available [facility] ([facility]) [address] [facility], [place], [address], 03/20/2023 00:06:12 03/13/20 23 03/19/2023 URINE CULTU RE, ROUTI NE result 1 COMMEN T abnormal Pj tella ornit hinol ytica Great er than 100,0 00 colon y formi ng units per mL Not Available [facility] ([facility]) [address] [facility], [place], [address], 03/20/2023 00:06:12 03/13/20 23 03/19/2023 URINE CULTU RE, ROUTI NE antimicrobia l susceptibili ty Commen t S = Susce ptibl e; I = Inter media te; R = Resis tant P = Posit medhat; N = Negat medhat MICS are expre ssed in micro grams per mL Antib iotic RSLT# 1 RSLT# 2 RSLT# 3 RSLT# 4 Amoxi cilli n/Cla vulan ic Acid S Ampic illin R Cefep cj S Ceftr iaxon e S Cefur oxime S Cipro floxa sheyla S Genta micin S Imipe nem S Merop enem S Nitro furan toin S Tetra cycli ne S Tobra mycin S Trime thopr im/Royal lfa S Not Available [facility] ([facility]) [address] [facility], [place], [address], 03/20/2023 00:06:12 03/13/20 23 03/14/2023 PLEAS E NOTE please note Commen t The date and/o r time of colle ction was not indic ated on the requi sitio n as requi red by state and jose al law. The date of recei pt of the speci men was used as the colle ction date if not suppl ied. Not Available [facility] ([facility]) [address] [facility], [place], [address], 03/20/2023 00:06:13 03/13/20 23 03/13/2023 urina lysis , dipst ick Leukocytes Trace Not Available [address], [address], 03/13/2023 13:07:58 03/13/20 23 03/13/2023 urina lysis , dipst ick Nitrite negati ve Not Available Sy [address], [address], 03/13/2023 13:07:58 03/13/20 23 03/13/2023 urina lysis , dipst ick Urobilinogen .2 Not Available Thony [address], [address], 03/13/2023 13:07:58 03/13/20 23 03/13/2023 urina lysis , dipst ick Protein Negati ve Not Available [address], [address], 03/13/2023 13:07:58 03/13/20 23 03/13/2023 urina lysis , dipst ick pH 6.5 Not Available [address], [address], 03/13/2023 13:07:58 03/13/20 23 03/13/2023 urina lysis , dipst ick Blood Negati ve Not Available [address], [address], 03/13/2023 13:07:58 03/13/20 23 03/13/2023 urina lysis , dipst ick Specific Gibbon 1.025 Not Available [address], [address], 03/13/2023 13:07:58 03/13/20 23 03/13/2023 urina lysis , dipst ick Ketone Negati ve Not Available [address], [address], 03/13/2023 13:07:58 03/13/20 23 03/13/2023 urina lysis , dipst ick Bilirubin Negati ve Not Available [address], [address], 03/13/2023 13:07:58 03/13/20 23 03/13/2023 urina lysis , dipst ick Glucose Negati ve Not Available [address], [address], 03/13/2023 13:07:58 03/13/20 23 03/13/2023 urina lysis , dipst ick Appearance Clear Not Available [address], [address], 03/13/2023 13:07:58 03/13/20 23 03/13/2023 urina lysis , dipst ick Color Dark Yellow Not Available [address], [address], 03/13/2023 13:07:58 04/13/20 23 04/14/2023 CBC WITH DIFFE RENTI AL/PL ATELE T WBC 6.3 x10e3 /uL 3.4-10 .8 Not Available [facility] ([facility]) [address] [place], [address], 04/15/2023 03:05:54 04/13/20 23 04/14/2023 CBC WITH DIFFE RENTI AL/PL ATELE T RBC 5.32 x10e6 /uL 3.77-5 .28 above high normal Not Available [facility] ([facility]) [address] [place], [address], 04/15/2023 03:05:54 04/13/20 23 04/14/2023 CBC WITH DIFFE RENTI AL/PL ATELE T hemoglobin 14.8 g/dL 11.1-1 5.9 Not Available [facility] ([facility]) [address] [place], [address], 04/15/2023 03:05:54 04/13/20 23 04/14/2023 CBC WITH DIFFE RENTI AL/PL ATELE T hematocrit 45.4 % 34.0-4 6.6 Not Available [facility] ([facility]) [address] [facility], [place], [address], 04/15/2023 03:05:54 04/13/2004/14/2023 CBC WITH DIFFE RENTI AL/PL ATELE T MCV 85 fL 79-97 Not Available [facility] ([facility]) [address] [place], [address], 04/15/2023 03:05:54 04/13/2004/14/2023 CBC WITH DIFFE RENTI AL/PL ATELE T MCH 27.8 pg 26.6-3 3.0 Not Available [facility] ([facility]) [address] [place], [address], 04/15/2023 03:05:54 04/13/2004/14/2023 CBC WITH DIFFE RENTI AL/PL ATELE T MCHC 32.6 g/dL 31.5-3 5.7 Not Available [facility] ([facility]) [address] [place], [address], 04/15/2023 03:05:54 04/13/2004/14/2023 CBC WITH DIFFE RENTI AL/PL ATELE T RDW 17.4 % 11.7-1 5.4 above high normal Not Available [facility] ([facility]) [address] [place], [address], 04/15/2023 03:05:54 04/13/2004/14/2023 CBC WITH DIFFE RENTI AL/PL ATELE T platelets 211 x10e3 /uL 150-45 0 Not Available [facility] ([facility]) [address] [place], [address], 04/15/2023 03:05:54 04/13/20 23 04/14/2023 CBC WITH DIFFE RENTI AL/PL ATELE T neutrophils 68 % not estab. Not Available [facility] ([facility]) [address] [facility], [place], [address], 04/15/2023 03:05:54 04/13/20 23 04/14/2023 CBC WITH DIFFE RENTI AL/PL ATELE T lymphs 21 % not estab. Not Available [facility] ([facility]) [address] [facility], [place], [address], 04/15/2023 03:05:54 04/13/20 23 04/14/2023 CBC WITH DIFFE RENTI AL/PL ATELE T monocytes 9 % not estab. Not Available [facility] ([facility]) [address] [facility], [place], [address], 04/15/2023 03:05:54 04/13/20 23 04/14/2023 CBC WITH DIFFE RENTI AL/PL ATELE T eos 1 % not estab. Not Available [facility] ([facility]) [address] [facility], [place], [address], 04/15/2023 03:05:54 04/13/20 23 04/14/2023 CBC WITH DIFFE RENTI AL/PL ATELE T basos 1 % not estab. Not Available [facility] ([facility]) [address] [facility], [place], [address], 04/15/2023 03:05:54 04/13/20 23 04/14/2023 CBC WITH DIFFE RENTI AL/PL ATELE T immature cells BUS BOY Not Available [facility] ([facility]) [address] [facility], [place], [address], 04/15/2023 03:05:54 04/13/20 23 04/14/2023 CBC WITH DIFFE RENTI AL/PL ATELE T neutrophils (absolute) 4.3 x10e3 /uL 1.4-7. 0 Not Available [facility] ([facility]) [address] [facility], [place], [address], 04/15/2023 03:05:54 04/13/20 23 04/14/2023 CBC WITH DIFFE RENTI AL/PL ATELE T lymphs (absolute) 1.4 x10e3 /uL 0.7-3. 1 Not Available [facility] ([facility]) [address] [facility], [place], [address], 04/15/2023 03:05:54 04/13/20 23 04/14/2023 CBC WITH DIFFE RENTI AL/PL ATELE T monocytes(ab solute) 0.6 x10e3 /uL 0.1-0. 9 Not Available [facility] ([facility]) [address] [facility], [place], [address], 04/15/2023 03:05:54 04/13/20 23 04/14/2023 CBC WITH DIFFE RENTI AL/PL ATELE T eos (absolute) 0.1 x10e3 /uL 0.0-0. 4 Not Available [facility] ([facility]) [address] [facility], [place], [address], 04/15/2023 03:05:54 04/13/20 23 04/14/2023 CBC WITH DIFFE RENTI AL/PL ATELE T baso (absolute) 0.0 x10e3 /uL 0.0-0. 2 Not Available [facility] ([facility]) [address] [facility], [place], [address], 04/15/2023 03:05:54 04/13/20 23 04/14/2023 CBC WITH DIFFE RENTI AL/PL ATELE T immature granulocytes 0 % not estab. Not Available [facility] ([facility]) [address] [facility], [place], [address], 04/15/2023 03:05:54 04/13/20 23 04/14/2023 CBC WITH DIFFE RENTI AL/PL ATELE T immature grans (abs) 0.0 x10e3 /uL 0.0-0. 1 Not Available [facility] ([facility]) [address] [facility], [place], [address], 04/15/2023 03:05:54 04/13/20 23 04/14/2023 CBC WITH DIFFE RENTI AL/PL ATELE T NRBC BUS BOY Not Available [facility] ([facility]) [address] [facility], [place], [address], 04/15/2023 03:05:54 04/13/20 23 04/14/2023 CBC WITH DIFFE RENTI AL/PL ATELE T hematology comments: BUS BOY Not Available [facility] ([facility]) [address] [facility], [place], [address], 04/15/2023 03:05:54 04/13/20 23 04/14/2023 COMP. METAB OLIC PANEL (14) glucose 70 mg/dL 70-99 Not Available [facility] ([facility]) [address] [facility], [place], [address], 04/15/2023 03:05:55 04/13/20 23 04/14/2023 COMP. METAB OLIC PANEL (14) BUN 14 mg/dL 6-24 Not Available [facility] ([facility]) [address] [facility], [place], [address], 04/15/2023 03:05:55 04/13/20 23 04/14/2023 COMP. METAB OLIC PANEL (14) creatinine 0.73 mg/dL 0.57-1 .00 Not Available [facility] ([facility]) [address] [place], [address], 04/15/2023 03:05:55 04/13/20 23 04/14/2023 COMP. METAB OLIC PANEL (14) eGFR 99 mL/mi n/1.7 3 >59 Not Available [facility] ([facility]) [address], [place], [id number], 04/15/2023 03:05:55 04/13/20 23 04/14/2023 COMP. METAB OLIC PANEL (14) BUN/creatini ne ratio 19 9-23 Not Available [facility] ([facility]) [address], [place], [id number], 04/15/2023 03:05:55 04/13/20 23 04/14/2023 COMP. METAB OLIC PANEL (14) sodium 143 mmol/ L 134-14 4 Not Available [facility] ([facility]) [address] [place], [address], 04/15/2023 03:05:55 04/13/20 23 04/14/2023 COMP. METAB OLIC PANEL (14) potassium 4.4 mmol/ L 3.5-5. 2 Not Available [facility] ([facility]) [address] [facility], [place], [address], 04/15/2023 03:05:55 04/13/20 23 04/14/2023 COMP. METAB OLIC PANEL (14) chloride 105 mmol/ L 96-106 Not Available [facility] ([facility]) [address] [place], [id number], 04/15/2023 03:05:55 04/13/20 23 04/14/2023 COMP. METAB OLIC PANEL (14) carbon dioxide, total 21 mmol/ L 20-29 Not Available [facility] ([facility]) [address] [place], [address], 04/15/2023 03:05:55 04/13/20 23 04/14/2023 COMP. METAB OLIC PANEL (14) calcium 9.3 mg/dL 8.7-10 .2 Not Available [facility] ([facility]) [address] [place], [id number], 04/15/2023 03:05:55 04/13/2004/14/2023 COMP. METAB OLIC PANEL (14) protein, total 6.9 g/dL 6.0-8. 5 Not Available [facility] ([facility]) [address] [place], [address], 04/15/2023 03:05:55 04/13/2004/14/2023 COMP. METAB OLIC PANEL (14) albumin 4.6 g/dL 3.8-4. 9 Eff ectiv e April 20, 2023 Album in refer ence inter lpue will be buchanan ing to: Age Male Femal e 0 - 7 days 3.6 - 4.9 3.6 - 4.9 8 - 30 days 3.5 - 4.6 3.5 - 4.6 1 - 6 month s 3.7 - 4.8 3.7 - 4.8 7 month s - 2 years 4.0 - 5.0 4.0 - 5.0 3 - 5 years 4.1 - 5.0 4.1 - 5.0 6 - 12 years 4.2 - 5.0 4.2 - 5.0 13 - 30 years 4.3 - 5.2 4.0 - 5.0 31 - 50 years 4.1 - 5.1 3.9 - 4.9 51 - 60 years 3.8 - 4.9 3.8 - 4.9 61 - 70 years 3.9 - 4.9 3.9 - 4.9 71 - 80 years 3.8 - 4.8 3.8 - 4.8 81 - 89 years 3.7 - 4.7 3.7 - 4.7 90 - 199 years 3.6 - 4.6 3.6 - 4.6 Not Available [facility] ([facility]) [address] [place], [address], 04/15/2023 03:05:55 04/13/2004/14/2023 COMP. METAB OLIC PANEL (14) globulin, total 2.3 g/dL 1.5-4. 5 Not Available [facility] ([facility]) [address] [place], [address], 04/15/2023 03:05:55 04/13/20 23 04/14/2023 COMP. METAB OLIC PANEL (14) A/G ratio 2.0 1.2-2. 2 Not Available [facility] ([facility]) [address] [facility], [place], [address], 04/15/2023 03:05:55 04/13/20 23 04/14/2023 COMP. METAB OLIC PANEL (14) bilirubin, total 0.4 mg/dL 0.0-1. 2 Not Available [facility] ([facility]) [address] [place], [address], 04/15/2023 03:05:55 04/13/20 23 04/14/2023 COMP. METAB OLIC PANEL (14) alkaline phosphatase 75 IU/L 44-121 Not Available [facility] [address] [facility], [place], [address], 04/15/2023 03:05:55 04/13/20 23 04/14/2023 COMP. METAB OLIC PANEL (14) AST (SGOT) 19 IU/L 0-40 Not Available [facility] ([facility]) [address] [facility], [place], [address], 04/15/2023 03:05:55 04/13/20 23 04/14/2023 COMP. METAB OLIC PANEL (14) ALT (SGPT) 18 IU/L 0-32 Not Available [facility] ([facility]) [address] [place], [address], 04/15/2023 03:05:55 04/13/20 23 04/15/2023 URINE CULTU RE, ROUTI NE urine culture, routine Final report Not Available [facility] ([facility]) [address] [place], [address], 04/15/2023 03:05:56 0704/15/2023 URINE CULTU RE, ROUTI NE result 1 COMMEN T Mixed uroge nital syl Less than 10,00 0 colon ies/m L Not Available [facility] ([facility]) [address], [place], [address], 04/15/2023 03:05:56 04/13/2004/13/2023 urina lysis , dipst ick Leukocytes Negati ve Not Available [address], [address], 04/13/2023 09:44:15 04/13/2004/13/2023 urina lysis , dipst ick Nitrite negati ve Not Available [address], [address], 04/13/2023 09:44:15 04/13/2004/13/2023 urina lysis , dipst ick Urobilinogen .2 Not Available Thony [address], [address], 04/13/2023 09:44:15 04/13/2004/13/2023 urina lysis , dipst ick Protein Negati ve Not Available [address], [address], 04/13/2023 09:44:15 04/13/2004/13/2023 urina lysis , dipst ick pH 5.5 Not Available [address], [address], 04/13/2023 09:44:15 04/13/2004/13/2023 urina lysis , dipst ick Blood Negati ve Not Available [address], [address], 04/13/2023 09:44:15 04/13/20 23 04/13/2023 urina lysis , dipst ick Specific Gibbon 1.015 Not Available [address], [address], 04/13/2023 09:44:15 04/13/20 23 04/13/2023 urina lysis , dipst ick Ketone Negati ve Not Available [address], [address], 04/13/2023 09:44:15 04/13/20 23 04/13/2023 urina lysis , dipst ick Bilirubin Negati ve Not Available [address], [address], 04/13/2023 09:44:15 04/13/2004/13/2023 urina lysis , dipst ick Glucose Negati ve Not Available [address], [address], 04/13/2023 09:44:15 04/13/20 23 04/13/2023 urina lysis , dipst ick Appearance Clear Not Available [address], [address], 04/13/2023 09:44:15 04/13/2004/13/2023 urina lysis , dipst ick Color Yellow Not Available [address], [address], 04/13/2023 09:44:15 04/17/[address], abdom en + pelvi s, w/ contr ast No observ ation record ed. [email or web address] [address] , [place], [address], 04/17/2023 15:21:51 Result Notes None recorded. 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 Procedures Surgical History Date Name Laterality Status Provider Name and Address Organization Details Recorded Time 12/02/19 18 Bilateral mastectomy completed Viri Rojo [place] - [facility] 08/10/2018 09:39:28 09/30/20 17 Date of Last Mammogram completed Mariseladiego Parkinsons [place] - [facility] 10/06/2017 10:46:24 10/10/20 15 Thyroidectomy completed Jennifer Rodney [place] - [facility] 08/13/2016 11:59:00 01/25/20 14 Hysterectomy, Total laparoscopic completed Jennifer Rodney [place] - [facility] 08/11/2016 13:45:49 01/25/20 14 Salpingo-oophorec soto, Bilateral completed Jennifer Rodney [place] - [facility] 08/11/2016 13:46:02 01/25/20 14 TVT completed [place] Rodney [place] [facility] 08/11/2016 13:46:15 11/02/19 14 Date of Last Pap Smear completed Jennifer BORREGO - [facility] 08/11/2016 13:43:45 Tubal Ligation completed Jennifer BORREGO [facility] 08/11/2016 13:46:25 Imaging Results None recorded. Procedure Notes None recorded. Medical Equipment None Reported. Allergies Allergen ID Allergen Name Allergen Category Reaction Reaction Severity Criticality Documentation Date Start Date Code Code System Note Provider Name and Address Organization Details Recorded Time 037935 fluticaso ne / salmetero l medicatio n rash Not available Not available 05/06/2022 40752 5 RxNorm ELMO Diaz - [facility] 2 15:55:45 549978 Zofran medicatio n nausea Not available Not available 05/06/2022 58721 RxNorm ELMO Diaz - [facility] 2 15:55:54 Medications Name Sig Start Date Stop Date Status Note LastModified by Organization Details LastModified Time methocarb marlene 500 mg tablet TAKE 1 TABLET BY MOUTH THREE TIMES A DAY 03/13 completed Not Available Not Available Not Available buspirone 5 mg tablet 1 po qd 03/13 completed Not Available Not Available Not Available anastrozo le 1 mg tablet 12/04 completed Not Available Not Available Not Available promethaz ine-DM 6.25 mg-15 mg/5 mL oral syrup 12/04 completed Not Available Not Available Not Available prednison e 10 mg tablet TAKE 1 TABLET BY MOUTH TWICE DAILY FOR 5 DAYS active Not Available Not Available No t Available doxycycli ne hyclate 100 mg capsule 12/04 completed Not Available Not Available Not Available ipratropi um 0.5 mg-albute rol 3 mg (2.5 mg base)/3 mL nebulizat ion soln 01/07 completed Not Available Not Available Not Available clindamyc in HCl 300 mg capsule TAKE 1 CAPSULE BY MOUTH THREE TIMES DAILY FOR 10 DAYS active Not Available Not Available No t Available albuterol sulfate 2.5 mg/3 mL (0.083 %) solution for nebulizat ion USE 1 VIAL IN NEBULIZE R EVERY 6 HOURS NEEDED FOR SHORTNES S OF BREATH FOR WHEEZING active Not Available Not Available No t Available polyethyl colton glycol 3350 17 gram oral powder packet TAKE 5 PACKETS DISSOLVE D IN WATER BY MOUTH THREE TIMES DAILY 03/04 completed Not Available Not Available Not Available azithromy sheyla 250 mg tablet TAKE 2 TABLETS (500 MG) BY ORAL ROUTE ONCE DAILY FOR 1 DAY THEN 1 TABLET (250 MG) BY ORAL ROUTE ONCE DAILY FOR 4 DAYS active Not Available Not Available No t Available IBU 800 mg tablet Take 1 tab PO q6h PRN pain. Take with food. 01/07 completed Not Available Not Available Not Available Lidocaine Viscous 2 % mucosal solution 12/04 completed Not Available Not Available Not Available benzonata te 200 mg capsule 03/04 completed Not Available Not Available Not Available valacyclo vir 1 gram tablet take 1 tablet (1,000 mg) by oral route 3 times per day for 7 days 08/19 completed Not Available Not Available Not Available Synthroid 150 mcg tablet TAKE 1 TABLET BY MOUTH DAILY active Not Available Not Available No t Available sucralfat e 100 mg/mL oral suspensio n 12/04 completed Not Available Not Available Not Available fluconazo le 200 mg tablet 12/04 completed Not Available Not Available Not Available promethaz ine 12.5 mg tablet 03/13 completed Not Available Not Available Not Available Synthroid 125 mcg tablet TAKE 1 TABLET BY MOUTH EVERY DAY IN THE MORNING ON AN EMPTY STOMACH active Not Available Not Available No t Available prednison e 20 mg tablet take 20 mg by oral route once daily for 5 days 05/28 completed predniso ne 20 mg oral tablet;R ecorded Status: Recorded on: 08/01/20 09 2:45PM;D iscontin ued Status: Disconti nued on: 05/28/20 10 8:26AM;U ser: calvom;E st. Completi on: 08/06/20 09;Print ed: 08/01/20 09 Not Available Not Available Not Available Diflucan 150 mg tablet take 1 tablet (150 mg) by oral route today and repeat on Thursday morning 05/11 completed Diflucan 150 mg oral tablet;R ecorded Status: Recorded on: 03/07/20 14 5:06PM;D iscontin ued Status: Disconti nued on: 05/11/20 15 2:10PM;U ser: delroys ;Printed : 03/07/20 14 Not Available Not Available Not Available metronida zole 500 mg tablet take 1 tablet (500 mg) by oral route 2 times per day 05/11 completed metronid azole 500 mg oral tablet;R ecorded Status: Recorded on: 03/07/20 14 5:06PM;D iscontin ued Status: Disconti nued on: 05/11/20 15 2:10PM;U ser: morelia ;Printed : 03/07/20 14 Not Available Not Available Not Available phentermi ne 37.5 mg tablet TAKE 1 TABLET BY MOUTH EVERY DAY 01/13 completed Not Available Not Available Not Available prochlorp erazine maleate 10 mg tablet 12/04 completed Not Available Not Available Not Available Tamiflu 75 mg capsule 08/19 completed Not Available Not Available Not Available sulfameth oxazole 800 mg-trimet hoprim 160 mg tablet TAKE 1 TABLET BY MOUTH TWICE DAILY FOR 5 DAYS active Not Available Not Available No t Available acyclovir 800 mg tablet TAKE 1 TABLET BY MOUTH FIVE TIMES DAILY WHILE AWAKE active Not Available Not Available No t Available ondansetr on 8 mg disintegr ating tablet 12/04 completed Not Available Not Available Not Available lidocaine -prilocai ne 2.5 %-2.5 % topical cream 12/04 completed Not Available Not Available Not Available meloxicam 7.5 mg tablet TAKE 1 TABLET BY MOUTH EVERY DAY NEEDED FOR JOINT PAIN active Not Available Not Available No t Available ceftriaxo ne 1 gram solution for injection Take 1 g by injectio n route. 09/11 completed Not Available Not Available Not Available Metrogel Vaginal 0.75 % (37.5 mg/5 gram) insert 1 applicat orful (37.5 mg) by vaginal route once daily at bedtime for 5 days 01/30 completed Metrogel Vaginal 0.75 % vaginal gel;Carlos rded Status: Recorded on: 01/17/20 14 3:39PM;D iscontin ued Status: Disconti nued on: 01/31/20 14 11:52AM; User: morelia ;Est. Completi on: 01/22/20 14;Print ed: 01/17/20 14 Not Available Not Available Not Available exemestan e 25 mg tablet TAKE 1 TABLET BY MOUTH EVERY DAY 03/13 completed Not Available Not Available Not Available ciproflox acin 0.3 % eye drops 12/04 completed Not Available Not Available Not Available meclizine 25 mg tablet 12/04 completed Not Available Not Available Not Available benzonata te 100 mg capsule TAKE 1 CAPSULE BY MOUTH THREE TIMES DAILY NEEDED FOR COUGH 03/04 completed Not Available Not Available Not Available cephalexi n 500 mg capsule TAKE 1 CAPSULE BY MOUTH TWICE DAILY FOR 7 DAYS 04/03 completed Not Available Not Available Not Available dexametha sone 4 mg tablet TAKE 1 TABLET BY MOUTH TWICE DAILY FOR 7 DAYS 01/13 completed Not Available Not Available Not Available promethaz ine 25 mg tablet Take 1 tablet 3 times a day by oral route as needed. 03/13 completed Not Available Not Available Not Available gabapenti n 300 mg capsule 12/04 completed Not Available Not Available Not Available Adipex-P 37.5 mg capsule Take 1 capsule every day by oral route as directed for 30 days. 08/10 completed Not Available Not Available Not Available omeprazol e 20 mg capsule,d elayed release TAKE 1 CAPSULE BY MOUTH EVERY MORNING 05/06 completed Not Available Not Available Not Available monteluka st 10 mg tablet 12/04 completed Not Available Not Available Not Available pravastat in 20 mg tablet TAKE 1 TABLET BY MOUTH DAILY active Not Available Not Available No t Available mupirocin 2 % topical ointment 12/04 completed Not Available Not Available Not Available Levaquin 500 mg tablet take 1 tablet (500 mg) by oral route once daily for 10 days 05/28 completed Levaquin 500 mg oral tablet;R ecorded Status: Recorded on: 08/01/20 09 2:45PM;D iscontin ued Status: Disconti nued on: 05/28/20 10 8:26AM;U ser: calvom;E st. Completi on: 08/11/20 09;Print ed: 08/01/20 09 Not Available Not Available Not Available gabapenti n 100 mg capsule 03/13 completed Not Available Not Available Not Available estradiol 0.5 mg tablet Take 1 tablet every day by oral route as directed for 30 days. 08/10 completed Not Available Not Available Not Available dexametha sone sodium phosphate 4 mg/mL injection solution Inject 1 mL every day by intramus cular route. 2023 active Not Available Not Available Not Avai lable Transderm -Scop 1 mg over 3 days transderm al patch apply 1 patch by transder mal route once behind ear at 9pm the night before surgery 01/30 completed Transder m-Scop 1.5 mg (1 mg over 3 days) transder mal patch 3 day;Carlos rded Status: Recorded on: 01/17/20 14 3:39PM;D iscontin ued Status: Disconti nued on: 01/31/20 14 11:52AM; User: morelia CrawleyEst. Completi on: 01/18/20 14;Indic ation: Preventi on of Motion Sickness - (17.9946 01);Prin yamini: 01/17/20 14 Not Available Not Available Not Available levofloxa sheyla 750 mg tablet 03/13 completed Not Available Not Available Not Available letrozole 2.5 mg tablet 12/04 completed Not Available Not Available Not Available methylpre dnisolone 4 mg tablets in a dose pack TAKE DIRECTED ON THE PACKAGE active Not Available Not Available No t Available albuterol sulfate HFA 90 mcg/actua tion aerosol inhaler INHALE 2 PUFFS BY MOUTH EVERY 6 HOURS NEEDED FOR SHORTNES S OF BREATH OR WHEEZING active Not Available Not Available No t Available SSD 1 % topical cream 12/04 completed Not Available Not Available Not Available norethind james (contrace ptive) 0.35 mg tablet take 1 tablet by oral route once daily for 30 days 03/01 completed norethin drone (contrac eptive) 0.35 mg oral tablet;R ecorded Status: Recorded on: 12/09/19 14 11:05AM; Disconti nued Status: Disconti nued on: 03/01/20 14 8:38AM;U ser: fermin; Est. Completi on: 02/08/20 14;Print ed: 12/14/19 14 Not Available Not Available Not Available Tussionex [place] ER 10 mg-8 mg/5 mL suspensio n,extende d release take 5 millilit ers by oral route every 12 hours for 5 days 05/28 completed Tussione x [place] tic ER 10-8 mg/5 mL oral suspensi on,exten ded rel 12 hr;Recor ded Status: Recorded on: 08/01/20 09 2:45PM;D iscontin ued Status: Disconti nued on: 05/28/20 10 8:26AM;U ser: calvom;E st. Completi on: 08/06/20 09;Indic ation: Cough - ([id number]) Not Available Not Available Not Available brompheni ramine-ps eudoephed rine-DM 2 mg-30 mg-10 mg/5 mL oral syrup 12/04 completed Not Available Not Available Not Available cefdinir 300 mg capsule TAKE 1 CAPSULE BY MOUTH TWICE DAILY FOR 10 DAYS active Not Available Not Available No t Available fluticaso ne propionat e 50 mcg/actua tion nasal spray,marlene pension SHAKE LIQUID AND USE 1 SPRAY IN EACH NOSTRIL EVERY DAY active Not Available Not Available No t Available dicyclomi ne 10 mg capsule TAKE 1 CAPSULE BY MOUTH EVERY 6 HOURS NEEDED FOR PAIN 01/13 completed Not Available Not Available Not Available vitamin E 268 mg (400 unit) capsule take 1 capsule by oral route 2 times a day for 30 days 03/07 completed vitamin E 400 unit oral capsule; Recorded Status: Recorded on: 09/22/20 13 2:42PM;D iscontin ued Status: Disconti nued on: 03/07/20 14 4:09PM;U ser: youngk;E st. Completi on: 04/20/20 14;Indic ation: Fibrocys tic Changes Of The Breast - (610.1) Not Available Not Available Not Available mometason e 0.1 % topical cream 12/04 completed Not Available Not Available Not Available metoclopr amide 10 mg tablet 12/04 completed Not Available Not Available Not Available progester one micronize d 100 mg capsule 08/19 completed Not Available Not Available Not Available amoxicill in 875 mg-potass ium clavulana te 125 mg tablet TAKE 1 TABLET BY MOUTH EVERY 12 HOURS FOR 7 DAYS 03/04 completed Not Available Not Available Not Available oxycodone 5 mg tablet TAKE ONE TABLET BY MOUTH EVERY 6 HOURS IF NEEDED FOR SEVERE PAIN FOR UP TO 3 DAYS 03/13 completed Not Available Not Available Not Available azithromy sheyla 500 mg tablet TAKE 1 TABLET BY MOUTH EVERY DAY FOR 7 DAYS 12/04 completed Not Available Not Available Not Available Zelnorm 6 mg tablet TAKE 1 TABLET BY MOUTH TWICE A DAY 12/04 completed Not Available Not Available Not Available Synthroid 137 mcg tablet TAKE 1 TABLET BY MOUTH DAILY active Not Available Not Available No t Available cyclobenz aprine 5 mg tablet 12/04 completed Not Available Not Available Not Available Zometa 4 mg/5 mL intraveno us solution every 6 months 01/07 completed Not Available Not Available Not Available nitrofura ntoin monohydra te/macroc rystals 100 mg capsule Take 1 capsule every 12 hours by oral route for 7 days. 03/13 completed Not Available Not Available Not Available duloxetin e 30 mg capsule,d elayed release 2 tablets daily 09/11 completed Not Available Not Available Not Available duloxetin e 60 mg capsule,d elayed release TAKE 1 CAPSULE BY MOUTH DAILY active Not Available Not Available No t Available Flovent HFA 110 mcg/actua tion aerosol inhaler INHALE 1 PUFF BY MOUTH ONCE DAILY 01/13 completed Not Available Not Available Not Available Sronyx 0.1 mg-20 mcg tablet take 1 tablet by oral route once daily for 28 days 09/22 completed Sronyx 0.1-20 mg-mcg oral tablet;R ecorded Status: Recorded on: 08/13/20 11 3:13PM;D iscontin ued Status: Disconti nued on: 09/22/20 13 2:14PM;U ser: youngk;E st. Completi on: 12/03/19 12;Print ed: 08/13/20 11 Not Available Not Available Not Available Symbicort 160 mcg-4.5 mcg/actua tion HFA aerosol inhaler 08/10 completed Not Available Not Available Not Available levocetir izine 5 mg tablet 12/04 completed Not Available Not Available Not Available guaifenes in ER 600 mg tablet, extended release 12 hr TAKE TWO TABLETS BY MOUTH TWICE DAILY 03/04 completed Not Available Not Available Not Available Vitals Date Recorded Body height Body mass index (BMI) Body weight Heart rate Oxygen saturation Oxygen saturation in Arterial blood by Pulse oximetry Respiratory rate Body temperature Systolic And Diastolic Provider Name and Address Organization Details Last Updated DateTime 4 177.8 cm 30.1 kg/m2 20736.4 g 94 /min 98 % 98 % 20 /min 97 [degF] 112/70 mm[Hg] Terra Rivas [place] - [facility] 4 15:26:55 Date Recorded Body height Body mass index (BMI) Body weight Body temperature Heart rate Oxygen saturation Oxygen saturation in Arterial blood by Pulse oximetry Respiratory rate Systolic And Diastolic Provider Name and Address Organization Details Last Updated DateTime 3 177.8 cm 29.3 kg/m2 23180.8 4 g 96.8 [degF] 102 /min 98 % 98 % 18 /min 118/78 mm[Hg] Terra BORRE[place] - [facility] 3 13:02:32 Date Recorded Body height Body mass index (BMI) Body weight Heart rate Oxygen saturation Oxygen saturation in Arterial blood by Pulse oximetry Respiratory rate Body temperature Systolic And Diastolic Provider Name and Address Organization Details Last Updated DateTime 3 177.8 cm 29.7 kg/m2 67690.6 2 g 95 /min 97 % 97 % 18 /min 98.2 [degF] 118/78 mm[Hg] Terra BORRE[place] - [facility] 3 09:52:59 Date Recorded Body height Oxygen saturation Oxygen saturation in Arterial blood by Pulse oximetry Respiratory rate Heart rate Body mass index (BMI) Body weight Body temperature Systolic And Diastolic Provider Name and Address Organization Details Last Updated DateTime 2 177.8 cm 95 % 95 % 16 /min 78 /min 26.8 kg/m2 60553.7 7 g 98.1 [degF] 118/78 mm[Hg] Terra [place] - [facility] 16:39:40 Date Recorded Body height Provider Name an d Address Organization Details Last Updated DateTime 09/11/2022 177.8 cm Venecia Stokes [place] - [facility] 022 09:48:38 Social History Question Answer Notes LastModified by Organizat ion Details LastModified Time Tobacco Smoking Status Former Smoker Terra melo [place] - [facility] 07/21/2022 16:42:25 Do You Have An Advance Directive? No Information not available 08/19/2017 Are You Blind Or Do You Have Difficulty Seeing? No Information not available 08/19/2017 Is Blood Transfusion Acceptable In An Emergency? Yes Information not available 08/19/2017 What Is Your Level Of Caffeine Consumption? Moderate Information not available 08/19/2017 How Much Tobacco Do You Chew? None Information not available 08/19/2017 In The 14 Days Before Symptom Onset, Have You Had Close Contact With A Laboratory-confi rmed COVID-19 While That Case Was Ill? No [email or web address] Information not available 01/13/2022 In The 14 Days Before Symptom Onset, Have You Had Close Contact With A Person Who Is Under Investigation For COVID-19 While That Person Was Ill? No [email or web address] Information not available 01/13/2022 Have You Been To An Area Known To Be High Risk For COVID-19? No [email or web address] Information not available 01/13/2022 Are You Deaf Or Do You Have Serious Difficulty Hearing? No Information not available 08/19/2017 What Type Of Diet Are You Following? REGULAR Information not available 08/19/2017 Which Illicit Or Recreational Drugs Have You Used? No Information not available 08/19/2017 Have You Processed Blood Or Body Fluids From An Ebola Virus Disease Patient Without Appropriate PPE? No [email or web address] Information not available 01/13/2022 Do You Reside In Or Have You Traveled To An Area Where Ebola Virus Transmission Is Active? No [email or web address] Information not available 01/13/2022 What Is The Highest Grade Or Level Of School You Have Completed Or The Highest Degree You Have Received? [id number] [email or web address] Information not available 08/10/2018 How Many Days Of Moderate To Strenuous Exercise, Like A Brisk Walk, Did You Do In The Last 7 Days? 1 [email or web address] Information not available 08/10/2018 On Those Days That You Engage In Moderate To Strenuous Exercise, How Many Minutes, On Average, Do You Exercise? 1 [email or web address] Information not available 08/10/2018 Have There Been Any Changes To Your Family Or Social Situation? No [email or web address] Information not available 01/13/2022 How Hard Is It For You To Pay For The Very Basics Like Food, Housing, Medical Care, And Heating? Not Very Hard [email or web address] Information not available 01/13/2022 What Is The Fluoride Status Of Your Home? Fluoridated [email or web address] Information not available 01/13/2022 When Did You Quit Smoking? 1-5yearssincelas jostin Information not available 07/21/2022 Have You Recently Or Are You Planning To Travel To An Area With Zika Virus? No Information not available 01/13/2022 Live Alone Or With Others? With Others Information not available 08/19/2017 Do You Have A Medical Power Of Flyer Builder? No [email or web address] Information not available 01/13/2022 What Was The Date Of Your Most Recent Tobacco Screening? 04/13/2023 Information not available 04/13/2023 How Many Children Do You Have? 2 [email or web address] Information not available 08/10/2018 Performs Monthly Self-breast Exam? No Information not available 08/19/2017 Do You Use Protection During Sex? Always Information not available 08/19/2017 Do You Use Protection Against STDs? No [email or web address] Information not available 01/13/2022 What Is Your Relationship Status? 2009 Enio Guardado [email or web address] Information not available 08/11/2016 Seat Belts Used Routinely Yes Information not available 08/19/2017 Are You Sexually Active? Yes Information not available 08/19/2017 Do You Have Smoke And Carbon Monoxide Detectors In Your Home? Yes [email or web address] Information not available 01/13/2022 Are You Passively Exposed To Smoke? No [email or web address] Information not available 01/13/2022 How Much Tobacco Do You Smoke? No Information not available 07/21/2022 General Stress Level Low Information not available 08/19/2017 Do You Use Sunscreen Routinely? No Information not available 08/19/2017 Has Tobacco Cessation Counseling Been Provided? No [email or web address] Information not available 01/13/2022 Do You Have Difficulty Walking Or Climbing Stairs? No Information not available 08/19/2017 What Contraceptive Method Was Reported At Start Of This Visit? Female Sterilization [email or web address] Information not available 01/13/2022 What Contraceptive Method Was Reported At End Of This Visit? Female Sterilization [email or web address] Information not available 01/13/2022 Do You Want To Talk About Contraception Or Prevention During Your Visit Today? No - I Do Not Want To Talk About Contraception Today Because I Am Here For Something Else [email or web address] Information not available 01/13/2022 How Was The Contraceptive Method Provided? Provided On Site [email or web address] Information no t available 01/13/2022 Do You Have Any Future Plans To Get ? No, I Don't Want To Become [email or web address] Information not available 01/13/2022 Sex: Female Functional Status Question Answer Note LastModified by Dizkonat ion Details LastModified Time Do you or have you ever used smokeless tobacco? Never used smokeless tobacco Information not available 12/04/2020 Are you currently employed? Yes Information not available 08/19/2017 Do you have transportation difficulties? No Information not available 01/13/2022 Urinary incontinence assessment performed? Yes Information not available 08/19/2017 Are you able to care for yourself? Yes [email or web address] Information n ot available 01/13/2022 Do you have difficulty dressing or bathing? No Information not available 08/19/2017 Do you or have you ever used e-cigarettes or vape? Never used electronic cigarettes Information not available 12/04/2020 What is your exercise level? None Information not available 08/19/2017 Do you use any illicit or recreational drugs? No [email or web address] Information not available 01/13/2022 Do you or have you ever used any other forms of tobacco or nicotine? No Information not available 01/13/2022 What is your level of alcohol consumption? None Information not available 08/19/2017 What is your status? Not [email or web address] Information no t available 01/13/2022 Are you able to walk? [email or web address] Information not available 08/19/2017 Do you have difficulty doing errands alone? No Information not available 08/19/2017 What is your occupation? [employer] Information not available 08/19/2017 Mental Status Question Answer Note LastModified by Organizat ion Details LastModified Time Do you feel stressed (tense, restless, nervous, or anxious, or unable to sleep at night)? [id number] [email or web address] Information not available 01/13/2022 Do you have difficulty concentrating, remembering or making decisions? No Information no t available 08/19/2017 Family History Relationship Description Onset Age of this Age Resolved Age Notes LastModified by Organization Details LastModified Time Maternal Grandmother Diabetes mellitus [email or web address] Not available 2015 13:41:39 Mother History of emphysema [email or web address] Not available 2015 13:41:59 Mother Essential hypertension [email or web address] Not available 13:42:08 Medical History Condition Response Pancreatitis N Other N Atrial Fibrillation N congenital heart disease N Blood Diseases N Hyperthyroidism N Blood Transfusion N Rheumatoid arthritis N Erectile Dysfunction N amputation N Skin Lesions N Depression N Pneumonia N Incontinence N Murmur N Edema N Alzheimer's Disease N Migraine Headaches N Tobacco Abuse N Anxiety Disorder N Hemorrhoids N Obesity N Vision or Eye Problems N Arthritis N Restless Leg Syndrome N Polyps N Infertility N Carpal Tunnel N Acid Reflux (GERD) N Cancer Y Varicosities N Stroke N Tendonitis N Crohn's Disease N Hypercholesterolemia N Skin Cancer N Headaches N Fibromyalgia N Irritable Bowel Syndrome N Anal Fissure N Kidney Disease N Heart Problems N Hospitalizations N Gallstones N Kidney or Bladder Problems N Goiter N Acne N Eating Disorder N Olivas's Esophagus N Hypertriglyceridemia N Constipation N Embolism N Vitamin B12 Deficiency N Deviated Septum N AIDS/HIV N Myocardial Infarction N Asthma N Mitral Valve Disorders N Vertigo N Hepatitis N Thyroid Cancer Y Neuropathy N History of DVT N Herniated Disc N Chicken Pox N Von Willebrands Disease N Thrombophilias N Breast Cancer Y Hernia N Plantar Fasciitis N Hypothyroidism N Lung Disease N Defects or Inherited Disease N Breast Problem N Ovarian Cyst N Anesthesia Complications N Testosterone Deficiency N Interstitial Cystitis N Congenital Anomalies N Hypoglycemia N Blood clot N Vitamin D Deficiency N Cellulitis N Endometriosis N Bladder or Kidney Problems N Fracture N Panic Disorder N Schizophrenia N Concussion N Spina Bifida N Osteoarthritis N Parkinson's Disease N Disc Protrusion N STI N Esophagitis N Angina N Thyroid Problems N GI Problems N ADD/ADHD N Anemia N Multiple Sclerosis N Abnormal PAP N Lumbago N Mental Illness N Psychiatric Illness N Diabetes N Ovarian Cancer N Degenerative Disc Disease N Seizures/Epilepsy N Hyperlipidemia N Syncope N Insomnia N Eczema N Abuse/Domestic Violence N Attention Deficient Disorder N Dementia N Ulcerative colitis N Cerebrovascular Disease N Depression N Guillain-Godley N Sleep Apnea N Aneurysm N Bronchitis N Heart Disease N Hypertension N Pre-Eclampsia N Suicidal Ideation N Osteoporosis N Gynecological History Statement/Question Response Abnormal Pap Y Date of Last Mammogram 09/30/2017 STIs/STDs N Current Control Method Hysterectom y Age at First Child 20 Last Lipids 05/11/15 Last Annual Exam/Provider 08/10/2018 SMO Date of Last Colonoscopy Most Recent Bone Density Sexually Active? Y Date of Last Pap Smear 11/02/2013 Sexual Problems? Yes Hormone Replacement Therapy N Obstetrics History GPAL:G 2 P 2 0 0 2 Type Value Full Term 2 Living 2 Total 2 Immunizations Vaccine Type Date Status Note Provider Nam e and Address Organization Details Recorded Time influenza, unspecified formulation 4 completed ELMO Manriquez [facility] 04/13/2023 09:54:07 Pneumococcal conjugate PCV 13 5 completed ELMO Manriquez [facility] 03/13/2023 13:02:57 Influenza, split virus, trivalent, preservative 4 completed ELMO Manriquez [facility] 03/13/2023 13:02:57 Past Encounters Encounter ID Performer Location Encounter Start Date Encounter Closed Date Diagnosis/Indication Diagnosis SNOMED-CT Code Diagnosis ICD10 Code Diagnosis Note [id number] DO Butch Nieves [employer] [address] [facility] [place] [id number] 08/19/2017 16:05:44 08/19/2017 17:15:58 Depression screening 861053535 Z13.89 Diet education 90006702 Z71.3 Counseling 028147972 Z71 .9 Exercise counseldennys maher Patient encouraged to exercise 30 minutes 5 days a week. Examinatio n of blood pressure 510440288 Z01.30 Vaccine de clined by patient 8175634489 02 Z28.21 Screening mammography 24 784584 Z12.31 Body mass index 30+ - obesity 657345355 Z68.39 Uterine cervix absent 24 4202871 Z90.710 Menopausal syndrome 1237 80052 N95.9 Routine gy necologic examination done [id number] 9101 Z01.183 [id number] DO Butch Nieves [employer] [address] [place] [address] [place] [id number] 10/21/2017 13:26:38 10/21/2017 14:43:51 Carcinoma of breast 405120522 C50.012 Referral to [facility] on 11/03/17 per patient. Additional pathology pending. Body mass index 25-29 - overweight 362041619 Z68.27 Screening for malignant neoplasm of vagina 172530133 Z12.72 [id number] DO Butch Nieves OIL DIST[employer]BUTOR TENDER [address] [place] [address] [place] [id number] 08/10/2018 09:11:49 08/10/2018 11:19:05 Routine gynecologic examination done [id number] 9101 Z01.419 Depression screening 171 262653 Z13.89 Diet education 59761256 Z71.3 Counseling 299893618 Z71 .82 Exercise counsellin g. Patient encouraged to exercise 30 minutes 5 days a week. Examinatio n of blood pressure 265174252 Z01.30 Body mass index 30+ - obesity 853395126 Z68.30 Carcinoma of breast 2548 00138 C50.012 metastatic - breast reconstruc tion surgery on August going to take oral suppressiv e chemo medication [id number] DO Butch Nieves OIL DISTRIBUTOR TENDER [address] [place] [address] [place] [id number] 7 12/04/2020 15:06:03 12/04/2020 16:24:52 Pain in pelvis 97320827 R10.2 [id number] DO Butch Nieves OIL DISTRIBUTOR TENDER [address] [place] [address] [place] [id number] 7 01/07/2022 14:43:27 01/07/2022 15:42:15 Abnormal urine odor 2462489 R82.90 Family his tory of diabetes mellitus type 2 983390482 Z83.3 [id number] EDDIE Louis OIL DISTRIBUTOR TENDER [address] [place] [address] [place] [id number] 01/13/2022 09:12:13 01/13/2022 09:54:45 Dysuria 26803059 R30.9 Nausea 131298589 R11.0 Mild dehydration 2610630 119 108 E86.0 Personal h istory of primary malignant neoplasm of breast 617609881 Z85.3 [id number] EDDIE [place] OIL DISTRIBUTOR TENDER [address] [place] [address] [place] [id number] 01/27/2022 09:56:04 01/27/2022 11:27:46 Dysuria 24515910 R30.9 Liver enzy mes level above reference range 438767959 R74.8 Isolated thrombocytopenia 784930382 D69.6 Personal h istory of primary malignant neoplasm of breast 381744516 Z85.3 Low back pain 263299688 M54.59 Increased frequency of urination 515864418 R35.0 [id number] DO Melba N[place] OIL DISTRIBUTOR TENDER [address] [place] [address] [place] [id number] 7 05/06/2022 15:29:49 05/06/2022 16:38:09 Routine gynecologic examination done [id number] 9101 Z01.419 Depression screening 171 971539 Z13.89 Diet education 82679467 Z71.3 Counseling 129983490 Z71 .82 Exercise counsellin g. Patient encouraged to exercise 30 minutes 5 days a week. Examinatio n of blood pressure 691741620 Z01.30 Vaccine de clined by patient 1790629227 02 Z28.21 Screening mammography 24 538201 Z12.31 Acquired a bsence of cervix and uterus 185016311 Z90.710 Body mass index 25-29 - overweight 386225094 Z68.27 Cigarette smoker 4396262 7 F17.210 Declines interventi on at this time [id number] Eugonda Fryman, [address] [id number] 07/21/2022 16:06:47 07/21/2022 17:03:44 Persistent cough 176276401 R05.3 Acute bronchitis 1820175 2 J20.9 encouraged to go to ed for eval to r/o pneumonia, pt wants to try rochepin and if no improvemen t or worsening will go to ed per pt [id number] EDDIE Ndiaye OIL DISTRIBUTOR TENDER [address] [place] [address] [place] [id number] 7 09/11/2022 09:43:43 09/11/2022 15:59:03 Dysuria-frequency syndrome 3575309 R30.0 [id number] Wili Chan [address] [address] 03/13/2023 12:44:00 03/13/2023 13:34:25 Body mass index 25-29 - overweight 621921167 Z68.29 Overweight 347745070 E66 .3 Acute urin bernadette tract infection 399754338 N39.0 urine cx pt has in her portal from [facility] is sensitive to keflex Acute bronchitis 6088136 2 J20.9 encouraged to go to ed for eval to r/o pneumonia, pt wants to try rochepin and if no improvemen t or worsening will go to ed per pt Acute righ t otitis media 301478107 H66.91 [id number] Wili Chan [address] [id number] 04/13/2023 09:39:30 04/13/2023 10:52:11 Increased frequency of urination 207325612 R35.0 Left lower quadrant pain 433982387 R10.32 [id number] Wili Chan [address] [address] 03/04/2024 15:09:21 03/04/2024 15:51:06 Acute maxillary sinusitis 64883187 J01.00 if no improvemen t returnPati ent likely has an acute bacterial sinusitis. Will treat as below. Supportive care reviewed: raising HOB, humidifier use, saline nasal spray, rest, encourage PO fluids and monitor hydration status, infection control measures. Recommende d acetaminop hen/ibupro fen PRN pain, fever; reviewed appropriat e doses. Follow-up as needed Health Concerns Section Related Observation LastModified by Organization Detai ls LastModified Time None Recorded Concern Status LastModified by Organization Details LastModified Time None Recorded Advance Directives Directive N: Payers Insurance Date Sequence Insurance Name Policy Number Policy Young Covered Member ID Young Member ID Guarantor Name 03/04/2024 1 [employer] (POS) Treve Guardado [id number] Romainqualine M Guardado 03/12/2025 1 [place] [id number] 01 Treve D Guardado [id number] Jacqualine M Guardado 10/21/2017 1 [employer] H[employer] Treve Guardado [id number] Romainqualine M Guardado 05/13/2023 1 [facility] [employer] [facility] (PPO) [id number] Buckyaline Peyton Guardado [id number] Romainqualine M Guardado Notes Date Note Type Note Provider Name and Address Organization Details Recorded Time 07/21/2022 text/html 51 yr old female presents with cough, soa, feeling worse. Was recently prescribed a z pack and steroid pack for strep but feels like it's in her chest now. pt states she is doing breathing treatments q6 hours. Pratikmarcos Chan, [employer] ATTEND[employer] [address], [place], [address], [place] - [facility] 07/24/2022 09:25:12 09/11/2022 text/html DysuriaReported bypatient.Quality:bur heidi;pressure;pain Severity:worsening Duration:intermittent Timing:better; gradual; actual date: (08-29-2022) Context:no prior history of STDs; no known exposure to STD;sexually active Modifying Factors:nothing gives relief; nothing makes it worse Associated Symptoms:no fever; no blisters on genitals; no rash on genitals; no hesitancy; no blood in the urine; normal urine stream; no flank pain Pt dropped urine sample. States she has dysuria and would like something called in. Sowmya Joseph, [employer] ATTENDANT [address], [place], [address], [place] - [facility] 09/11/2022 10:51:36 03/13/2023 text/html 52 yr old female presents with cough, rt ear pain, and congestion for over a week. She also thinks she has a urinary tract infection- she has frequency and a funny smell to urine. She had a urine culture done at [facility] and has it on her portal. Wili Chan APRN [address], [place], [address], [facility] - [facility] 03/13/2023 13:46:28 04/13/2023 text/html 52 yr old female presents with a possible UTI. pt states left lower quad pain, pt is worried she is having a complication from her reconstructive surgery. has been seen fre for uti. Wili Chan APRN [address], [place], [address], [facility] - [facility] 04/13/2023 10:39:52 03/04/2024 text/html 53 yr old female presents for head congestion- green drainage x 2 weeks. She finished amoxicillin and tessalon perles. She has not improved. She was also given a rocephin injection. Wili Chan APRN [address], [place], [address], [place] - [facility] 03/04/2024 15:55:38 OBGyn Episode No OBEpisode recorded.
== END 2025-05-01 23:59 | disposition home or self-care (01) ==
LOC: LAB.DROPOF 05-02 12:08
PROVIDERS: PCP Nurse Practitioner Family; Visit Provider Nurse Practitioner Family
DX: E03.9 Hypothyroidism, unspecified (principal)
CPT/HCPCS: 84436; 84439; 84443; 84481

== ENCOUNTER 2025-07-07 12:02 | Outpatient (CLI) | payer BC, SELFPAY ==
--- OUTSIDE RECORDS SUMMARY | 2025-05-22 14:30 | XMS_ITS | Encounter Summary ---
Author Organization [facility] Address [address] [place] [address] Care Team Providers Care Family Caseworker Name Role Phone Sriram Gee MD Primary Care Provider [phone] Encounter Details Date Type Department Care Team (Late st Contact Info) Description 05/22/2025 2:30 PM EDT Office Visit [facility] Plastic [facility] Reconstructive Surgery [address] [place] [id number] Chrissie Nielsen MD [address] [id number] Acquired absence of both breasts (Primary Dx) Social History Tobacco Use Types Packs/Day Years [...] PM EST documented as of this encounter Last Filed Vital Signs Vital Sign Reading Time Taken Comments Blood Pressure 116/73 05/22/2025 2:29 PM EDT Pulse 88 05/22/2025 2:29 PM EDT Temperature - - Respiratory Rate - - Oxygen Saturation 97% 05/22/2025 2:29 PM EDT Inhaled Oxygen Concentration - - Weight 101 kg (222 lb 10.6 oz) 05/22/2025 2:29 P M EDT Height 175.3 cm (5' 9 ) 05/22/2025 2:29 PM EDT Body Mass Index 32.88 05/22/2025 2:29 PM EDT documented in this encounter Miscellaneous Notes * H&P - Lenore Hernandez MD - 05/22/2025 2:30 PM EDT Subjective HPI Lian Guardado is a 54 y.o. female presents to clinic to discuss operative intervention for abdominal bulge. She states she has been bothered by the bulge for the past year however she believes thatover the past several months it has gotten larger. She has chronic low back pain which she attributes to the bulge. When she engages in physical activity such as exercising she believes the bulge pain elicits back pain. She is concerned the bulge will continue to enlarge and cause more serious problems in the future if not addressed. She has been wearing compression garments for comfort and pain control related to the abdominal bulge as well as in order to fit into clothing. Denies intractable nausea/vomiting, abdominal pain, or other signs of strangulation/incarceration. Has not had to manually reduce the bulge in the past. Patient initially underwent implant based reconstruction which was plagued by multiple revisions and complications so on November 05, 2022 patient underwent explantation of bilateral breast implants and free tissue transfer from the abdomen for breast reconstruction. Patient has early postoperative course was complicated by hematoma which required evacuation. Was seen by orthopedics regarding shoulder pain, underwent workup including MRI, found to have infraspinatus tear. She has been seeing chronic pain specialist regarding LUE pain. States her past issues with b/l breasts have resolved and she does not wish to pursue any further operative interventionregarding her reconstructed breasts. Of note, pt has been without synthroid for the past 10d however states she is working to get back on the medication. Impression: 1. 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 2. History of thyroid cancer status post thyroidectomy. 3. Family history of breast and ovarian cancer. 4. 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 Plan: Oncology Had planned for her to continue exemestane, due to the inconsistent nature with which she took antiestrogen therapy initially and locally advanced disease, recommend 10 years of adjuvant hormonal therapy. However, due to quality of life pt stopped exemestane in 2022. She does not wish to go back on hormone suppression therapy at this time and understands the risk. Review of Systems Musculoskeletal: Positive for myalgias. All other systems reviewed and are negative. Objective Visit Vitals BP 116/73 Pulse 88 Ht 1.753 m (5' 9 ) Wt 101 kg (222 lb 10.6 oz) SpO2 97% BMI 32.88 kg/m?? Physical Exam Vitals reviewed. Constitutional: Appearance: Normal appearance. HENT: Head: Normocephalic. Nose: Nose normal. Mouth/Throat: Mouth: Mucous membranes are moist. Eyes: Pupils: Pupils are equal, round, and reactive to light. Cardiovascular: Pulses: Normal pulses. Pulmonary: Effort: Pulmonary effort is normal. Chest: Comment: b/l reconstructed breasts with well healed incisions, soft to palpation, CR<2s; there is grossly noticeable asymmetry between b/l breasts Abdominal: General:Soft, nontender to palpation. There is a palpable bulge inferolateral to the umbilicus between the umbilicus and low abdominal incision which beocmes more prominent on valsalva. Bulge is visible when pt is standing in a relaxed position. Small b/l dog ears present at lateral extrema of low incision. Musculoskeletal: General: Normal range of motion. Cervical back: Normal range of motion. Comments: Left anterior and posterior shoulder pain, worse with ROM Skin: General: Skin is warm and dry. Capillary Refill: Capillary refill takes less than 2 seconds. Neurological: Mental Status: She is alert and oriented to person, place, and time. Psychiatric: Mood and Affect: Mood normal. Assessment/Plan Lian Guardado is a 54 y.o. female presents to clinic for follow up regarding abdominal bulge. We believe the bulge causes significant distress and diminished quality of life fot the patient and warrants operative intervention. Explained the pt the operative approach, which would involve using efrain low abdominal incision to access the abdominal wall, possibly place mesh on visibly weakened areas to lend strength and limit extent to which weakened connective tissue worsens. Procedure will likely necessitate a drain. At the same time, we are able to revise the scar and remove b/l dog ears. Pt and expressed verbal agreement and understanding, wish to proceed. Will place case request, cabinet maker to contact pt regarding dates. documented in this encounter Plan of Treatment Upcoming Encounters Date Type Department Care Team (Late st Contact Info) Description 12/25/2025 1:00 PM EDT Office Visit [facility] [address] [facility] [place] [address] Yohana Mensah, DIRECTOR OF OPERATIONS SUPPORT [address] [facility] [address] [place] [address] documented as of this encounter Visit Diagnoses Diagnosis Acquired absence of both breasts- Primary documented in this encounter Additional Health Concerns Assessment Noted Time PHQ-9 Depression Total Score: 0 12/06/19 25 1:56 PM EST A fall risk assessment has been complete d for the patient 05/22/2025 2:30 PM EDT A Body Mass Index follow-up plan has been documented for the patient 05/26/2025 9:53 AM EDT documented as of this encounter Care Teams Family Caseworker Relationship Specialty Start Date End Date Sriram Gee MD [address] [place] [address] PCP - General 03/16/21 documented as of this encounter
--- OUTSIDE RECORDS SUMMARY | 2025-05-28 17:48 | XMS_ITS | Encounter Summary ---
Author Organization [place] [address] Care Team Providers Care Deck Lid Fitter Name Role Phone Nonstaff, Referring Primary Care Provider Mari alvarez Reason for Visit * Reason Comments Fall Tripped and fell on concrete, right arm/chest injury. Encounter Details Date Type Department Care Team (Late st Contact Info) Description 05/28/2025 5:48 PM EDT - 05/28/2025 7:49 PM EDT Emergency [place] [facility] [place], [place] [id number] Tre Ribera MD [address] [phone] Closed nondisplaced fracture of head of right radius, initial encounter (Primary Dx) Discharge Disposition: Home or Self Care Social History Tobacco Use Types Packs/Day Years Used Date Smoking Tobacco: Never Smokeless Tobacco: Never Tobacco Cessation:Counseling Given: Not Answered Alcohol Use Standard Drinks/Week Comments Never 0 (1 standard drink = 0.6 oz pur e alcohol) Comments Unknown Sex and Gender Information Value Date Recorded Sex Assigned at Not on file Legal Sex Female 9:36 AM EDT Gender Identity Not on file Sexual Orientation Not on file documented as of this encounter Last Filed Vital Signs Vital Sign Reading Time Taken Comments Blood Pressure 130/78 05/28/2025 5:53 PM EDT Pulse 78 05/28/2025 5:53 PM EDT Temperature 36.6 C (97.8 F) 05/28/2025 5:53 PM EDT Respiratory Rate 16 05/28/2025 5:53 PM EDT Oxygen Saturation 98% 05/28/2025 5:53 PM EDT Inhaled Oxygen Concentration - - Weight - - Height - - Body Mass Index - - documented in this encounter Functional Status * Suicide Severity Rating Answer Date of Assessment Author No Risk 05/28/2025 5:53 PM EDT Cintia Sherman RN * [place] Suicide Severity Rating Scale (Q shift for moderate and high) Question Answer Date of Assessment Author 1. In the past month, have y ou wished you were or wished you could go to sleep and not wake up? 0 05/28/2025 5:53 PM EDT Maki Sherman RN 2. In the past month, have y ou actually had any thoughts of killing yourself? (If no, skip to question 6) 0 05/28/2025 5:53 PM EDT Maki Sherman RN 6. Have you ever done anythi ng, started to do anything, or prepared to do anything to end your life? 0 05/28/2025 5:53 PM EDT Maki Sherman RN documented as of this encounter Discharge Instructions * Discharge Instructions* Gloria Montiel PA - 05/28/2025 7:00 PM EDT Take ibuprofen and Tylenol for pain. Return with worsening pain or numbness or tingling of your arm. Follow-up with orthopedics above documented in this encounter Discharge Disposition Disposition Code Departure Means Destination Comment s Home or Self Mcfp documented in this encounter ED Notes * Gloria Montiel PA - 05/28/2025 5:13 PM EDT Chief Complaint Patient presents with Fall Tripped and fell on concrete, right arm/chest injury. 54-year-old female presenting with fall. Patient states she tripped on her flip- flops and fell. Shelanded on her bilateral knees and hands. She is endorsing right forearm pain and right rib pain. States she feels she is unable to move her right arm well. She did not hit her head or lose consciousness. Has not taken anything for pain Fall Associated symptoms: no abdominal pain, no chest pain, no cough, no diarrhea, no fever, no nausea, no rash, no shortness of breath and no vomiting Patient History Allergies Allergen Reactions Advair Diskus [Fluticasone Propion-Salmeterol] Rash Home Medications: Prior to Admission medications Not on File Past Medical History: History reviewed. No pertinent past medical history. Social History: reports that she has never smoked. She has never used smokeless tobacco. She reports that she does not drink alcohol and does not use drugs. E-Cigarettes (such as Vapes or Juul) E-Cigarette Use Never User Family History: No family history on file. Surgical History: History reviewed. No pertinent surgical history. Review of Systems Review of Systems Constitutional: Negative for chills and fever. HENT: Negative. Eyes: Negative. Respiratory: Negative for cough and shortness of breath. Cardiovascular: Negative for chest pain, palpitations and leg swelling. Gastrointestinal: Negative for abdominal pain, diarrhea, nausea and vomiting. Genitourinary: Negative for dysuria and frequency. Musculoskeletal: Negative. Skin: Negative for rash. Neurological: Negative. Psychiatric/Behavioral: Negative. All other systems reviewed and are negative. Physical Exam Blood pressure 130/78, pulse 78, temperature 97.8 ??F (36.6 ??C), resp. rate 16, SpO2 98%. Physical Exam Constitutional: General: She is not in acute distress. Appearance: She is not toxic-appearing. HENT: Head: Normocephalic and atraumatic. Chest: Comments: Tenderness to right anterior ribs. No overlying laceration or bruising Musculoskeletal: Right shoulder: No bony tenderness. Normal range of motion. Right elbow: Decreased range of motion. No tenderness. Right wrist: Bony tenderness present. No snuff box tenderness. Decreased range of motion. Normal pulse. Comments: Abrasions to bilateral knees and palm of hand Neurological: Mental Status: She is alert. Radiology/EKG/Labs: Results for orders placed or performed during the hospital encounter of 05/28/25 XR RIBS RIGHT 2 VW Narrative XR RIBS RIGHT 2 VW, 05/28/2025 6:23 PM CLINICAL HISTORY: -fall COMPARISON: None. PROCEDURE COMMENTS: Minimum of two views per protocol with unilateral rib detail. FINDINGS: No acute rib fracture. No pneumothorax or effusion. Impression No acute finding. - Note: Radiology results need to be interpreted within a comprehensive clinical context. If you have questions about the radiology report, please contact the office of the ordering clinician. XR WRIST RIGHT PA LATERAL AND OBLIQUE Narrative XR WRIST RIGHT PA LATERAL AND OBLIQUE, 05/28/2025 6:23 PM CLINICAL HISTORY: -fall COMPARISON: None. PROCEDURE COMMENTS: 4 views of the wrist, with PA, lateral, and bilateral oblique imaging. FINDINGS: Carpal alignments are maintained. No acute fracture or dislocation identified. No significant soft tissue finding. Joint spaces overall well-maintained for age. No periostitis. Impression No acute bony abnormality of the wrist. - Note: Radiology results need to be interpreted within a comprehensive clinical context. If you have questions about the radiology report, please contact the office of the ordering clinician. XR ELBOW RIGHT AP LATERAL AND OBLIQUES Narrative XR ELBOW RIGHT AP LATERAL AND OBLIQUES, 05/28/2025 6:23 PM CLINICAL HISTORY: -fall COMPARISON: None. PROCEDURE COMMENTS: XR ELBOW RIGHT AP LATERAL AND OBLIQUES FINDINGS: Suspected radial head/neck fracture is essentially nondisplaced. Probable joint effusion. Impression Suspect essentially nondisplaced radial head/neck fracture - Note: Radiology results need to be interpreted within a comprehensive clinical context. If you have questions about the radiology report, please contact the office of the ordering clinician. ED Course: Appropriate laboratory and radiology studies reviewed ED Clinical Impression: radial head fracture MDM Medical Decision Making 54-year-old female presenting with fall. Patient is endorsing right forearm pain and rib pain. Rib x-rays without acute abnormality. Elbow and wrist x-rays reveal a radial head fracture. Patient was placed in a posterior long-arm splint and sling. She was offered pain medication but declined. Afterapplication of the splint, it is appropriately placed and she is neurovascularly intact. Patient to follow-up with orthopedics. She states she would prefer to just take ibuprofen and Tylenol at home.Return precautions discussed Condition at Discharge/Transfer from Department: Stable This chart was completed using voice recognition technology and may contain unintended errors Gloria Montiel PA 05/28/251936 Cosigned by Tre Ribera MD at 05/28/2025 11:36 PM EDT Associated attestation - Tre Ribera MD - 05/28/2025 11:36 PM EDT I have reviewed the presenting complaint, exam, workup, and treatment plan of the advanced practiceprovider (JOHNY). I either directly discussed the patient's visit and plan of care with the JOHNY or was immediately available to discuss any concerns, personally examine the patient, and/or manage complications if needed. Based on my review of the information available, I believe the impression and treatment plan are reasonable and that there is a very low likelihood of deterioration that could result in disability or . This chart was completed using voice recognition technology and may contain unintended errors documented in this encounter Plan of Treatment Not on file documented as of this encounter Procedures Procedure Name Priority Date/Time Associated Diagnosis Comments XR WRIST RIGHT PA LATERAL AND OBLIQUE JASEN 05/28/2025 6:23 PM EDT XR ELBOW RIGHT AP LATERAL AND OBLIQUES JASEN 05/28/2025 6:23 PM EDT XR RIBS RIGHT 2 VW JASEN 05/28/2025 6: 23 PM EDT documented in this encounter Results * XR ELBOW RIGHT AP LATERAL AND OBLIQUES (05/28/2025 6:23 PM EDT) Anatomical Region Laterality Modality Elbow Radiographic Kath ging 05/28/2025 6:23 PM EDT Impressions 05/28/2025 6:50 PM EDT Suspect essentially nondisplaced radial head/neck fracture - Note: Radiology results need to be interpreted within a comprehensive clinical context. If you have questions about the radiology report, please contact the office of the ordering clinician. Narrative 05/28/2025 6:50 PM EDT XR ELBOW RIGHT AP LATERAL AND OBLIQUES, 05/28/2025 6:23 PM CLINICAL HISTORY: -fall COMPARISON: None. PROCEDURE COMMENTS: XR ELBOW RIGHT AP LATERAL AND OBLIQUES FINDINGS: Suspected radial head/neck fracture is essentially nondisplaced. Probable joint effusion. Procedure Note Colby Joseph MD - 05/28/2025 XR ELBOW RIGHT AP LATERAL AND OBLIQUES, 05/28/2025 6:23 PM CLINICAL HISTORY: -fall COMPARISON: None. PROCEDURE COMMENTS: XR ELBOW RIGHT AP LATERAL AND OBLIQUES FINDINGS: Suspected radial head/neck fracture is essentially nondisplaced. Probablejoint effusion. IMPRESSION: Suspect essentially nondisplaced radial head/neck fracture - Note: Radiology results need to be interpreted within a comprehensiveclinical context. If you have questions about the radiology report, please contactthe office of the ordering clinician. Gloria Montiel PA [facility] ORDERAB LES Final Result * XR WRIST RIGHT PA LATERAL AND OBLIQUE (05/28/2025 6:23 PM EDT) Anatomical Region Laterality Modality Wrist Radiographic Kath ging 05/28/2025 6:23 PM EDT Impressions 05/28/2025 6:47 PM EDT No acute bony abnormality of the wrist. - Note: Radiology results need to be interpreted within a comprehensive clinical context. If you have questions about the radiology report, please contact the office of the ordering clinician. Narrative 05/28/2025 6:47 PM EDT XR WRIST RIGHT PA LATERAL AND OBLIQUE, 05/28/2025 6:23 PM CLINICAL HISTORY: -fall COMPARISON: None. PROCEDURE COMMENTS: 4 views of the wrist, with PA, lateral, and bilateral oblique imaging. FINDINGS: Carpal alignments are maintained. No acute fracture or dislocation identified. No significant soft tissue finding. Joint spaces overall well-maintained for age. No periostitis. Procedure Note Colby Joseph MD - 05/28/2025 XR WRIST RIGHT PA LATERAL AND OBLIQUE, 05/28/2025 6:23 PM CLINICAL HISTORY: -fall COMPARISON: None. PROCEDURE COMMENTS: 4 views of the wrist, with PA, lateral, andbilateral oblique imaging. FINDINGS: Carpal alignments are maintained. No acute fracture ordislocation identified. No significant soft tissue finding. Joint spaces overall well-maintained for age. No periostitis. IMPRESSION: No acute bony abnormality of the wrist. - Note: Radiology results need to be interpreted within a comprehensiveclinical context. If you have questions about the radiology report, please contactthe office of the ordering clinician. Gloria MILLER [facility] ORDERAB LES Final Result * XR RIBS RIGHT 2 VW (05/28/2025 6:23 PM EDT) Anatomical Region Laterality Modality Chest Radiographic Kath ging 05/28/2025 6:23 PM EDT Impressions 05/28/2025 6:47 PM EDT No acute finding. - Note: Radiology results need to be interpreted within a comprehensive clinical context. If you have questions about the radiology report, please contact the office of the ordering clinician. Narrative 05/28/2025 6:47 PM EDT XR RIBS RIGHT 2 VW, 05/28/2025 6:23 PM CLINICAL HISTORY: -fall COMPARISON: None. PROCEDURE COMMENTS: Minimum of two views per protocol with unilateral rib detail. FINDINGS: No acute rib fracture. No pneumothorax or effusion. Procedure Note Colby Joseph MD - 05/28/2025 XR RIBS RIGHT 2 VW, 05/28/2025 6:23 PM CLINICAL HISTORY: -fall COMPARISON: None. PROCEDURE COMMENTS: Minimum of two views per protocol with unilateralrib detail. FINDINGS: No acute rib fracture. No pneumothorax or effusion. IMPRESSION: No acute finding. - Note: Radiology results need to be interpreted within a comprehensiveclinical context. If you have questions about the radiology report, please contactthe office of the ordering clinician. Gloria MILLER [facility] ORDERAB L[facility] Final Result documented in this encounter Visit Diagnoses Diagnosis Closed nondisplaced fracture of head of right radius, initial encounter- Primary documented in this encounter Active and Recently Administered Medications Orders Medications Ordered That Garo ht Not Have Been Administered Count Last Ordered Date First Ordered Date oxyCODONE-acetaminophen (PER COCET) 5-325 mg per tablet 1 Tablet 1 05/28/2025 Nursing Count Last Ordered Date First Orde red Date ED [facility] 1 05/28/2025 SPLINT, CUSTOM 1 05/28/2025 documented in this encounter Care Teams Deck Lid Fitter Relationship Specialty Start Date End Date Nonstaff, Referring PCP - General 05/28/25 documented as of this encounter
--- OUTSIDE RECORDS SUMMARY | 2025-05-29 08:20 | XMS_ITS | Encounter Summary ---
Author Organization [facility] Address [address] [place] [address] Care Team Providers Care Director Of Public Health Name Role Phone Sriram Gee MD Primary Care Provider [phone] Reason for Visit * Reason Comments Pain Fracture Pain Fracture Encounter Details Date Type Department Care Team (Late st Contact Info) Description 05/29/2025 8:20 AM EDT Office Visit [facility] Orthopaedic Surgery & Sports Medicine [address], [address] [place] [address] Pily Tripathi, DO [address] [place] [address] Closed nondisplaced fracture of head of right radius, initial encounter (Primary Dx); Tenderness of anatomical snuffbox Social History Tobacco Use Types Packs/Day Years [...] Sign Reading Time Taken Comments Blood Pressure - - Pulse - - Temperature - - Respiratory Rate - - Oxygen Saturation 99% 05/29/2025 9:08 AM EDT Inhaled Oxygen Concentration - - Weight 101 kg (222 lb) 05/29/2025 9:08 AM EDT Height 175.3 cm (5' 9 ) 05/29/2025 9:08 AM EDT Body Mass Index 32.78 05/29/2025 9:08 AM EDT documented in this encounter Miscellaneous Notes * Progress Notes - Pily Tripathi DO - 05/29/2025 8:20 AM EDT Images from the original note were not included. [facility] Note Encounter Date: 05/29/2025 Subjective: Chief Complaint: Elbow and wrist pain History of Present Illness: Raine Guardado is a 54 y.o. year old right-handed female who presents today with elbow and wrist pain. She states that she was walking in flip-flops, when she tripped and landed on a outstretched hand. She reported immediate pain. She was seen in the ER at [facility] diagnosed with a nondisplaced radial head fracture. She was placed in a posterior long-arm splint and in a sling.She reports that she has been in excruciating pain. She reports pain while in the splint and sling.She is unwilling to move her arm secondary to pain. She reports that she did not take any medications from the ER. Served as independent medical transcription radiology Problem List has Malignant neoplasm of upper-inner quadrant of left breast in female, estrogen receptor positive; Allergic reaction; Breast reconstruction deformity; Breast cancer, female; Malignant neoplasm of left breast; Malignant neoplasm of central portion of left breast in female, estrogen receptor positive; Capsular contracture of breast implant; Acquired absence of both breasts; Hematoma of breast; Neuropathy; Thyroid cancer (CMS/HCC); Status post bilateral breast reconstruction; and Postoperative hypothyroidism on their problem list. Medications Patient's Medications New Prescriptions DICLOFENAC (VOLTAREN) 75 MG EC TABLET Take 1 tablet by mouth 2 times a day. Do not crush, chew, or split. Previous Medications DULOXETINE (CYMBALTA) [address] CAPSULE Take 1 capsule by mouth daily. MELOXICAM (MOBIC) 7.5 MG TABLET Take 1 tablet (7.5 mg total) by mouth 1 (one) time each day if needed (joint pain). METHOCARBAMOL (ROBAXIN) 500 MG TABLET Take 1 tablet (500 mg total) by mouth 3 (three) times a day. OMEPRAZOLE (PRILOSEC) [address] CAPSULE Take 1 capsule (20 mg) by mouth 1 (one) time each day if needed. PROMETHAZINE (PHENERGAN) 12.5 MG TABLET Take 1 tablet (12.5 mg total) by mouth every 8 (eight) hours if needed for nausea or vomiting. SYNTHROID 137 MCG TABLET Take 1 tablet (137 mcg) by mouth daily. Modified Medications No medications on file Discontinued Medications No medications on file Surgical History Surgical History[1] Allergies Allergies[2] Objective: Visit Vitals Ht 1.753 m (5' 9 ) Wt 101 kg (222 lb) SpO2 99% BMI 32.78 kg/m?? OB Status Hysterectomy Smoking Status Former BSA 2.22 m?? GEN: Alert, cooperative, in no acute distress. MSK: Right Elbow --Inspection: Erythema over the palm. --Palpation: No tenderness to palpation along the medial epicondyles. No tenderness to palpation over the olecranon. Significant tenderness to palpation over the radial head. --Range of motion: 90-120 degrees flexion, 0-15 degrees pronation/supination of the forearm, 0-20 degrees wrist flexion, 0-20 degrees wrist extension. Motion limited by pain. --Strength: Elbow: 4/5 strength with flexion, extension of the elbow. Significantly limited by pain Wrist: 4/5 strength with flexion, extension, radial deviation, ulnar deviation of the wrist. Significantly limited by pain. Hand: 4/5 screed person strength. Significantly limited by pain. --Neurovascular: Sensation intact to light touch. 2+ radial pulse. --Special Tests: Right Wrist --Inspection: No erythema, ecchymosis, or swelling appreciated. --Palpation: Moderate tenderness to palpation over the ulnar styloid in a over the anatomical snuffbox --Neurovascular: Sensation intact to light touch. 2+ radial pulses. Radial nerve: normal IP joint extension against resistance with moderate pain. Median nerve: recurrent motor branch: normal palmar abduction of thumb with significant pain. Anterior interosseous branch: normal A-OK sign. Ulnar nerve: normal finger abduction against resistance. --Special Tests: Imaging: plain radiographs of the right elbow were personally reviewed by myself which were significant for possible lucency consistent with nondisplaced radial head fracture. plain radiographs of the right wrist were personally reviewed by myself which were significant for no acute fracture or dislocation. Assessment and Plan: Diagnosis Plan 1. Closed nondisplaced fracture of head of right radius, initial encounter Orders Placed This Encounter diclofenac (Voltaren) 75 MG EC tablet In summary, patient is a 54 y.o. year old female who presents to clinic for right elbow and wrist pain. Based on the physical exam findings above and imaging this patient has nondisplaced radial headfracture and tenderness in the wrist. Given these findings, will place her in a posterior long-arm splint and continue her in the sling due to her significant pain. Follow up on Thursday with repeat x-rays of the elbow and wrist. Will reassess the wrist at this time and we will remove from posterior long arm splint to encourage early and aggressive range of motion. Provided script for diclofenac 75 mg twice daily for pain. If this is insufficient, can prescribed script for 3 days of narcotics. Discussed risks and benefits of NSAID use, including gastritis and cardiac events. Recommended taking with food to avoid stomach irritation. If experiencing side effects, pt to call office to discussalternative treatments. Patient verbalized understanding of the plan and were agreeable with no further questions. Records Reviewed: Plain Radiographs. Electronically Signed by: Pily Tripathi DO - 05/29/2025 [1] Past Surgical History: Procedure Laterality Date BREAST AUGMENTATION COLONOSCOPY HYSTERECTOMY N/A MASTECTOMY, RADICAL THYROIDECTOMY N/A Thyroidectomy from [facility] [2] Allergies Allergen Reactions Advair Hfa [Fluticasone-Salmeterol] Rash Ondansetron Nausea Penicillins Other - please document in the comment field, Unknown - Patient states they do not knowrxn details and Rash unknown Salmeterol Other - please document in the comment field documented in this encounter Plan of Treatment Upcoming Encounters Date Type Department Care Team (Late st Contact Info) Description 12/25/2025 1:00 PM EDT Office Visit [facility] [address] [place] [address] Yohana Mensah, HOSIERY BAGGER [address] [place] [address] documented as of this encounter Visit Diagnoses Diagnosis Closed nondisplaced fracture of head of right radius, initial encounter- Primary Tenderness of anatomical snuffbox documented in this encounter Additional Health Concerns Assessment Noted Time PHQ-9 Depression Total Score: 0 12/06/19 25 1:56 PM EST A fall risk assessment has been complete d for the patient 05/29/2025 9:08 AM EDT A Body Mass Index follow-up plan has been documented for the patient 05/29/2025 10:44 AM EDT documented as of this encounter Care Teams Director Of Public Health Relationship Specialty Start Date End Date Sriram Gee MD [facility] [place] [address] PCP - General 03/16/21 documented as of this encounter
--- OUTSIDE RECORDS SUMMARY | 2025-06-02 07:58 | XMS_ITS | Encounter Summary ---
Author Organization [facility] Address [address] [id number] Care Team Providers Care Health Economist Name Role Phone Sriram Gee MD Primary Care Provider [phone] Encounter Details Date Type Department Care Team (Latest Contact Info) Description 06/02/2025 7:58 AM EDT - 06/02/2025 11:59 PM EDT Hospital Encounter [facility] [address], [address] [place] [address] Right elbow pain Discharge Disposition: Home or Self Care Social [...] PM EST documented as of this encounter Medications at Time of Discharge diclofenac (Voltaren) 75 MG EC tablet Take 1 tablet by mouth 2 times a day. Do not crush, chew, or split. 28 tablet 05/29/2025 meloxicam (Mobic) 7.5 MG tablet Take 1 tablet (7.5 mg total) by mouth 1 (one) time each day if needed (joint pain). 30 tablet 3 06/30/2022 methocarbamol (Robaxin) 500 MG tablet Take 1 tablet (500 mg total) by mouth 3 (three) times a day. 90 tablet 3 06/30/2022 omeprazole (PriLOSEC) [address] capsule Take 1 capsule (20 mg) by mouth 1 (one) time each day if needed. 09/13/2020 promethazine (Phenergan) 12.5 MG tablet Take 1 tablet (12.5 mg total) by mouth every 8 (eight) hours if needed for nausea or vomiting. 15 tablet 11/14/2022 Synthroid 137 MCG tablet Take 1 tablet (137 mcg) by mouth daily. 09/12/2024 documented as of this encounter Plan of Treatment Upcoming Encounters Date Type Department Care Team (Late st Contact Info) Description 12/25/2025 1:00 PM EDT Office Visit [facility] [address], [address]nd [place] [address] Yohana Mensah, CONSTRUCTION FRAMER [address] [facility] [address] [place] [address] documented as of this encounter Procedures Procedure Name Priority Date/Time Associated Diagnosis Comments XR WRIST RIGHT 3+ VIEWS Routine 06/02/2025 8:15 AM EDT Right elbow pain XR ELBOW RIGHT 3+ VIEWS Routine 06/02/2025 8:15 AM EDT Right elbow pain documented in this encounter Results * XR Wrist Right 3+ Views (06/02/2025 8:15 AM EDT) Anatomical Region Laterality Modality Upper Extremities, Wrist Right Digital Radiography Impressions 06/02/2025 8:32 AM EDT Similar appearance of radial head/neck junction fracture with continued elbow effusion. No acute or healing fracture of the right wrist. CRITICAL RESULT: No. COMMUNICATION: Per this written report. Drafted by Giuseppe Contreras MD on 06/02/2025 8:31 AM Final report signed by Giuseppe Contreras MD on 06/02/2025 8:32 AM Narrative 06/02/2025 8:32 AM EDT CLINICAL INDICATION: pain TECHNIQUE: XR ELBOW RIGHT 3+ VIEWS, XR WRIST RIGHT 3+ VIEWS COMPARISON: None. FINDINGS: Right elbow: Small enthesophyte from the lateral epicondyle. Continued elbow effusion. Similar appearance of fracture at the radial head neck junction. Right wrist: Osseous mineralization is within normal limits. Alignment of the wrist is unremarkable. No fracture or dislocation. Procedure Note Giuseppe Contreras MD - 06/02/2025 CLINICAL INDICATION: pain TECHNIQUE: XR ELBOW RIGHT 3+ VIEWS, XR WRIST RIGHT 3+ VIEWS COMPARISON: None. FINDINGS: Right elbow: Small enthesophyte from the lateral epicondyle. Continuedelbow effusion. Similar appearance of fracture at the radial head neckjunction. Right wrist: Osseous mineralization is within normal limits. Alignment ofthe wrist is unremarkable. No fracture or dislocation. IMPRESSION: Similar appearance of radial head/neck junction fracture with continuedelbow effusion. No acute or healing fracture of the right wrist. CRITICAL RESULT: No. COMMUNICATION: Per this written report. Drafted by Giuseppe Contreras MD on 06/02/2025 8:31 AM Final report signed by Giuseppe Contreras MD on 06/02/2025 8:32 AM Pily Tripathi DO IMG XR PROCEDURES Final R esult * XR Elbow Right 3+ View (06/02/2025 8:15 AM EDT) Anatomical Region Laterality Modality Upper Extremities, Elbow Right Digital Radiography Impressions 06/02/2025 8:32 AM EDT Similar appearance of radial head/neck junction fracture with continued elbow effusion. No acute or healing fracture of the right wrist. CRITICAL RESULT: No. COMMUNICATION: Per this written report. Drafted by Giuseppe Contreras MD on 06/02/2025 8:31 AM Final report signed by Giuseppe Contreras MD on 06/02/2025 8:32 AM Narrative 06/02/2025 8:32 AM EDT CLINICAL INDICATION: pain TECHNIQUE: XR ELBOW RIGHT 3+ VIEWS, XR WRIST RIGHT 3+ VIEWS COMPARISON: None. FINDINGS: Right elbow: Small enthesophyte from the lateral epicondyle. Continued elbow effusion. Similar appearance of fracture at the radial head neck junction. Right wrist: Osseous mineralization is within normal limits. Alignment of the wrist is unremarkable. No fracture or dislocation. Procedure Note Giuseppe Contreras MD - 06/02/2025 CLINICAL INDICATION: pain TECHNIQUE: XR ELBOW RIGHT 3+ VIEWS, XR WRIST RIGHT 3+ VIEWS COMPARISON: None. FINDINGS: Right elbow: Small enthesophyte from the lateral epicondyle. Continuedelbow effusion. Similar appearance of fracture at the radial head neckjunction. Right wrist: Osseous mineralization is within normal limits. Alignment ofthe wrist is unremarkable. No fracture or dislocation. IMPRESSION: Similar appearance of radial head/neck junction fracture with continuedelbow effusion. No acute or healing fracture of the right wrist. CRITICAL RESULT: No. COMMUNICATION: Per this written report. Drafted by Giuseppe Contreras MD on 06/02/2025 8:31 AM Final report signed by Giuseppe Contreras MD on 06/02/2025 8:32 AM Pliy Tripathi DO IMG XR PROCEDURES Final R esult documented in this encounter Visit Diagnoses Diagnosis Right elbow pain Pain in joint, upper arm documented in this encounter Additional Health Concerns Assessment Noted Time PHQ-9 Depression Total Score: 0 12/06/19 25 1:56 PM EST A fall risk assessment has been complete d for the patient 06/02/2025 7:52 AM EDT A Body Mass Index follow-up plan has been documented for the patient 06/02/2025 8:39 AM EDT documented as of this encounter Care Teams Health Economist Relationship Specialty Start Date End Date Sriram Gee MD [address] [place] [address] PCP - General 03/16/21 documented as of this encounter
--- OUTSIDE RECORDS SUMMARY | 2025-06-02 08:00 | XMS_ITS | Encounter Summary ---
Author Organization [facility] Address [address] [place] [address] Care Team Providers Care Office Cleaner Name Role Phone Sriram Gee MD Primary Care Provider [phone] Reason for Referral * Consultation (Routine) - Authorized Specialty Diagnoses / Procedures Referred By Solitario rodriguez Referred To Contact Physical Therapy Diagnoses Right elbow pain Closed nondisplaced fracture of head of right radius with routine healing, subsequent encounter Pily Tripathi DO [address] [address] Phone: tel: fax: Referral ID Status Reason Start Date Expiration Date Visits Requested Visits Authorized [id number] Authorized Consult and Treat 06/02/2025 12/02/2026 1 1 Encounter Details Date Type Department Care Team (Late st Contact Info) Description 06/02/2025 8:00 AM EDT Office Visit [facility] Orthopa[facility] Surgery & Sports Medicine [address] [facility] [address] [facility], [address] [place] [address] Pily Tripathi DO [address] [facility] [address] [place] [address] Right elbow pain (Primary Dx); Closed nondisplaced fracture of head of right radius with routine healing, subsequent encounter Social History Tobacco Use Types Packs/Day Years [...] Sign Reading Time Taken Comments Blood Pressure 110/72 06/02/2025 7:51 AM EDT Pulse - - Temperature - - Respiratory Rate - - Oxygen Saturation - - Inhaled Oxygen Concentration - - Weight 101 kg (222 lb) 06/02/2025 7:51 AM EDT Height 175.3 cm (5' 9 ) 06/02/2025 7:51 AM EDT Body Mass Index 32.78 06/02/2025 7:51 AM EDT documented in this encounter Miscellaneous Notes * Progress Notes - Pily Tripathi DO - 06/02/2025 8:00 AM EDT Images from the original note were not included. [facility] Note Encounter Date: 06/02/2025 Subjective: Chief Complaint: Elbow and wrist pain History of Present Illness: Raine Guardado is a 54 y.o. year old right-handed female who presents today for follow up withelbow an/d wrist pain. She had a nondisplaced radial head fracture on 05/28/25. She denies any numbness/tingling. She reports that she has had improvement since Thursday. Served as independent medical laboratory scientist Problem List has Malignant neoplasm of upper-inner [...] problem list. Medications Patient's Medications New Prescriptions No medications on file Previous Medications DICLOFENAC (VOLTAREN) 75 MG EC TABLET Take 1 tablet by mouth 2 times a day. Do not crush, chew, or split. DULOXETINE (CYMBALTA) [address] CAPSULE Take [...] Surgical History[1] Allergies Allergies[2] Objective: Visit Vitals BP 110/72 Ht 1.753 m (5' 9 ) Wt 101 kg (222 lb) BMI 32.78 kg/m?? OB Status Hysterectomy Smoking Status Former BSA 2.22 m?? GEN: Alert, cooperative, in no acute distress. MSK: Right Elbow --Inspection: No significant edema, ecchymosis. --Palpation: No tenderness to palpation along the medial epicondyles. No tenderness to palpation over the olecranon. Moderate tenderness to palpation over the radial head. --Range of motion: 70-140 degrees flexion, 0-30 degrees pronation/supination of the forearm, 0-20 degrees wrist flexion, 0-20 degrees wrist extension. Motion limited by pain. --Strength: Hand: 4/5 oracle r12 developer strength. Significantly limited by pain. --Neurovascular: Sensation intact to light touch. 2+ radial pulse. --Special Tests: Right Wrist --Inspection: No erythema, ecchymosis, or swelling appreciated. --Palpation: No tenderness to palpation over dorsal or volar wrist. --Neurovascular: Sensation intact to light touch. 2+ [...] reviewed by myself which were significant for nondisplaced radial head fracture. plain radiographs of the right wrist were personally reviewed by myself which were significant for no acute fracture or dislocation. Assessment and Plan: Diagnosis Plan 1. Right elbow pain XR Elbow Right 3+ View XR Wrist Right 3+ Views Physical Therapy (outgoing) 2. Closed nondisplaced fracture of head of right radius with routine healing, subsequent encounter Physical Therapy (outgoing) Orders Placed This Encounter XR Elbow Right 3+ View XR Wrist Right 3+ Views Physical Therapy (outgoing) In summary, patient is a 54 y.o. year old female who presents to clinic for right elbow and wrist pain. Based on the physical exam findings above and imaging this patient has nondisplaced radial headfracture. Recommended early and aggressive ROM. NWB of RUE. Referral sent to PT. F/u in 1 week. Patient verbalized understanding of the plan and were agreeable with no further questions. Records Reviewed: Plain Radiographs. Electronically Signed by: Pily Tripathi DO - 06/02/2025 [1] Past Surgical History: Procedure Laterality Date [...] Description 12/25/2025 1:00 PM EDT Office Visit [facility] [address] [place] [address], [address] [place] [address] Yohana Mensah, DINING SERVICES DIRECTOR [address] [place] [address] Scheduled Referrals Name Type Priority Associated Diagnoses Orde r Schedule Physical Therapy (outgoing) Outpatient Referral Routine Right elbow pain Closed nondisplaced fracture of head of right radius with routine healing, subsequent encounter 1 Occurrences starting 06/02/2025 until 12/04/2026 documented as of this encounter Results * XR Wrist Right [...] Giuseppe Contreras MD on 06/02/2025 8:32 AM us Pily Tripathi DO IMG XR PROCEDURES Final R esult documented in this encounter Visit Diagnoses Diagnosis Right elbow pain- Primary Pain in joint, upper arm Closed nondisplaced fracture of head of right radius with routine healing, subsequent encounter Right elbow pain Pain in joint, upper [...] documented as of this encounter Care Teams Office Cleaner Relationship Specialty Start Date End Date Sriram Gee MD [address] [facility] [place] [address] PCP - General 03/16/21 documented as of this encounter
--- OUTSIDE RECORDS SUMMARY | 2025-06-09 12:41 | XMS_ITS | Encounter Summary ---
Author Organization [facility] Address [address] [id number] Care Team Providers Care Advertising Manager Name Role Phone Sriram Gee MD Primary Care Provider Encounter Details Date Type Department Care Team (Latest Contact Info) Description 06/09/2025 12:41 PM EDT - 06/09/2025 11:59 PM EDT Hospital Encounter [facility] [address] [facility], [address] [place] [address] Right elbow pain Discharge Disposition: [...] Description 12/25/2025 1:00 PM EDT Office Visit [facility] [address] [facility], [address]nd [place] [address] Yohana Mensah, CARBON CLEANER [address] [facility] [address] [place] [address] documented as of this encounter Procedures Procedure Name Priority Date/Time Associated Diagnosis Comments XR ELBOW RIGHT 3+ VIEWS Routine 06/09/2025 12:47 PM EDT Right elbow pain documented in this encounter Results * XR Elbow Right 3+ Views (06/09/2025 12:47 PM EDT) Anatomical Region Laterality Modality Upper Extremities, Elbow Right Digital Radiography Impressions 06/09/2025 3:58 PM EDT There may be subtle interval impaction of the radial neck fracture versus differences in patient positioning. Improving elbow joint effusion. CRITICAL RESULT: No. COMMUNICATION: Per this written report. By electronically signing this report, I, the attending physician, attest that I have personally reviewed the images/data for the above examination(s) and agree with the final edited report. Drafted by Vincenzo Lui MD on 06/09/2025 2:32 PM Final report signed by Merary Jean MD on 06/09/2025 3:58 PM Narrative 06/09/2025 3:58 PM EDT CLINICAL INDICATION: pain TECHNIQUE: XR ELBOW RIGHT 3+ VIEWS COMPARISON: X-ray 06/02/2025. FINDINGS: There may be subtle interval impaction of the radial neck fracture versus differences in patient positioning. Small improving elbow joint effusion.. Enthesophyte along the lateral epicondyle. No soft tissue swelling. Procedure Note Merary Jean MD - 06/09/2025 CLINICAL INDICATION: pain TECHNIQUE: XR ELBOW RIGHT 3+ VIEWS COMPARISON: X-ray 06/02/2025. FINDINGS: There may be subtle interval impaction of the radial neck fracture versusdifferences in patient positioning. Small improving elbow joint effusion..Enthesophyte along the lateral epicondyle. No soft tissue swelling. IMPRESSION: There may be subtle interval impaction of the radial neck fracture versusdifferences in patient positioning. Improving elbow joint effusion. CRITICAL RESULT: No. COMMUNICATION: Per this written report. By electronically signing this report, I, the attending physician, lul I have personally reviewed the images/data for the aboveexamination(s) and agree with the final edited report. Drafted by Vincenzo Lui MD on 06/09/2025 2:32 PM Final report signed by Merary Jean MD on 06/09/2025 3:58 PM Pily Tripathi DO IMG XR PROCEDURES Final R esult documented in this encounter Visit Diagnoses Diagnosis Right elbow pain Pain in joint, upper arm documented in this encounter Additional Health Concerns Assessment Noted Time PHQ-9 Depression Total Score: 0 12/06/19 25 1:56 PM EST A fall risk assessment has been complete d for the patient 06/09/2025 12:38 PM EDT A Body Mass Index follow-up plan has been documented for the patient 06/09/2025 2:30 PM EDT documented as of this encounter Care Teams Advertising Manager Relationship Specialty Start Date End Date Sriram Gee MD [address] [place] [address] PCP - General 03/16/21 documented as of this encounter
--- OUTSIDE RECORDS SUMMARY | 2025-06-09 13:00 | XMS_ITS | Encounter Summary ---
Author Organization [facility] Address [address] [place] [address] Care Team Providers Care Juvenile Counselor Name Role Phone Sriram Gee MD Primary Care Provider [phone] Reason for Visit * Reason Comments Follow-up Follow-up Encounter Details Date Type Department Care Team (Late st Contact Info) Description 06/09/2025 1:00 PM EDT Office Visit [facility] Orthopaedic Surgery & Sports Medicine [address] [facility], [address] [place] [address] Pily Tripathi, DO [address] [facility] [address] [place] [address] Right elbow pain (Primary Dx); [...] Sign Reading Time Taken Comments Blood Pressure 106/72 06/09/2025 12:38 PM EDT Pulse - - Temperature - - Respiratory Rate - - Oxygen Saturation - - Inhaled Oxygen Concentration - - Weight 101 kg (222 lb) 06/09/2025 12:38 PM EDT Height 175.3 cm (5' 9 ) 06/09/2025 12:38 PM EDT Body Mass Index 32.78 06/09/2025 12:38 PM EDT documented in this encounter Miscellaneous Notes * Progress Notes - Pily Tripathi DO - 06/09/2025 1:00 PM EDT Images from the original note were not included. Sports Medicine [facility] Note Encounter Date: 06/09/2025 Subjective: Chief Complaint: Right elbow pain History of Present Illness: Raine Guardado is a 54 y.o. year old left-handed female who presents today for follow up of right elbow pain. She had a non displaced radial head fracture on 05/28/25. She states that she believes she is getting better. She states that she is now able to make a fist and extend her right elbow more. She states that she still has pain with right wrist pronation and supination. She denies any num bness and tingling into her hand. She states that she will be starting PT next Thursday. 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 OB Status Hysterectomy Smoking Status Former BSA 2.22 m?? GEN: Alert, cooperative, in no acute distress. MSK: Right Elbow --Inspection: No erythema, ecchymosis, or swelling appreciated. --Palpation: No tenderness to palpation along the lateral or medial epicondyles. No tenderness to palpation over the olecranon. Mild TTP over the radial head. --Range of motion: 10-120 degrees flexion, 0-60 degrees pronation/supination of the forearm, 0-80 degrees wrist flexion, 0-70 degrees wrist extension. --Strength: Elbow: 5/5 strength with flexion, extension of the elbow. 4/5 strength with pronation/supination ofthe forearm due to pain. Wrist: 5/5 strength with flexion, extension, radial deviation, ulnar deviation of the wrist. Hand: 5/5 delivery manager strength. Increased pain with resisted testing with elbow supination/pronation and radial deviation of the wrist. --Neurovascular: Sensation intact to light touch. 2+ radial pulse. Imaging: plain radiographs of the right elbow were personally reviewed by myself which were significant for healing, nondisplaced radial head fracture. Assessment and Plan: Diagnosis Plan 1. Right elbow pain XR Elbow Right 3+ Views 2. Closed nondisplaced fracture of head of right radius with routine healing, subsequent encounter Orders Placed This Encounter XR Elbow Right 3+ Views In summary, patient is a 54 y.o. year old female who presents to clinic for f/u of closed, nondisplaced healing radial head fracture. Improved ROM & strength. Given these findings, continue with aggressive ROM. Start PT. Follow up 3 weeks. Patient verbalized understanding of the plan and were agreeable with no further questions. Records Reviewed: Plain Radiographs. and Prior office visits. Electronically Signed by: Pily Tripathi DO - 06/09/2025 [1] Past Surgical History: Procedure Laterality Date [...] Description 12/25/2025 1:00 PM EDT Office Visit [facility] [address] [facility], [address]nd [place] [address] Yohana Mensah, MVA REACTOR OPERATOR HEAD [address] [facility] [address] [place] [address] documented as of this encounter Results * XR Elbow Right [...] documented as of this encounter Care Teams Juvenile Counselor Relationship Specialty Start Date End Date Sriram Gee MD [address] [place] [address] PCP - General 03/16/21 documented as of this encounter
[2025-07-07 16:27] LABS: Coronavirus 19, PCR Not Detected (NotDetected); Influenza A, PCR Not Detected (NotDetected); Influenza B, PCR Not Detected (NotDetected)
--- OUTSIDE RECORDS SUMMARY | 2025-07-10 11:05 | XMS_ITS | Encounter Summary ---
Author Organization [facility] Address [address] [place] [address] Care Team Providers Care Damper Maker Name Role Phone Sriram Gee MD Primary Care Provider [phone] Encounter Details Date Type Department Care Team (Latest Contact Info) Description 05/29/2025 Travel Social History Tobacco Use Types Packs/Day Years [...] Description 12/25/2025 1:00 PM EDT Office Visit [facility] [address] [facility], [address]nd [place] [address] Yohana Mensah, RUM PROCESSING OPERATOR [address] [facility] [address] [place] [address] documented as of this encounter Visit Diagnoses [...] documented as of this encounter Care Teams Damper Maker Relationship Specialty Start Date End Date Sriram Gee MD [address] [place] [address] PCP - General 03/16/21 documented as of this encounter
--- OUTSIDE RECORDS SUMMARY | 2025-07-10 11:05 | XMS_ITS | Encounter Summary ---
Author Organization [facility] Address [address] [place] [address] Care Team Providers Care Print Production Manager Name Role Phone Sriram Gee MD Primary Care Provider [phone] Encounter Details Date Type Department Care Team (Late Contact Info) Description 05/28/2025 Orders Only External Location [address] [place] [address] Provider, External Social History Tobacco Use Types Packs/Day Years [...] Department Care Team (Late Contact Info) Description 12/25/2025 1:00 PM EDT Office Visit [facility] Breast Care [facility] [address] [facility], [address]nd [place] [address] Yohana Mensah, OPHTHALMIC SURGICAL ASSISTANT [address] [facility] [address] [facility] [address] [place] [address] documented as of this encounter Procedures Procedure Name Priority Date/Time Associated Diagnosis Comments XR MSK OUTSIDE IMAGES 05/28/2025 6:15 PM EDT documented in this encounter Results * XR MSK OUTSIDE IMAGES (05/28/2025 6:15 PM EDT) Anatomical Region Laterality Modality Radiographic Kath ging 05/28/2025 6:15 PM EDT us External Provider IMG XR PROCEDURES Final Result documented in this encounter Visit Diagnoses Not on filedocumented in this encounter Additional Health Concerns Assessment Noted Time PHQ-9 Depression Total Score: 0 12/06/19 1:56 PM EST A fall risk assessment has been complete d for the patient 05/22/2025 2:30 PM EDT A Body Mass Index follow-up plan has been documented for the patient 05/26/2025 9:53 AM EDT documented as of this encounter Care Teams Print Production Manager Relationship Specialty Start Date End Date Sriram Gee MD [address] [place] [address] PCP - General 03/16/21 documented as of this encounter
--- OUTSIDE RECORDS SUMMARY | 2025-07-10 11:05 | XMS_ITS | Encounter Summary ---
Author Organization [facility] Address [address] [place] [address] Care Team Providers Care Optical Laboratory Mechanic Name Role Phone Sriram Gee MD Primary Care Provider Reason for Visit * Reason Onset Date Comments HCN - Patient Message 06/09/2025 Encounter Details Date Type Department Care Team (Late st Contact Info) Description 06/09/2025 Telephone [facility] Orthopaedic Surgery & Sports Medicine [address] [facility], [address] [place] [address] Pily Tripathi, DO [address] [facility] [address] [place] [address] HCN - Patient Message Social History Tobacco Use Types Packs/Day Years [...] PM EST documented as of this encounter Miscellaneous Notes * Telephone Encounter - Kalyani Apple - 06/09/2025 2:29 PM EDT Faxed * Telephone Encounter - Diana Jack - 06/09/2025 12:03 PM EDT Paperwork/Documentation Request Patient Name: Raine Guardado Type: PT order Due Date: unknown date Send To: Fax to [facility] [phone] Best contact number: [phone] Optimal time of day to reach caller: ANYTIME Additional comments/information from caller: None Note: Please do not reply to this message. Follow-up communication and further actions as a result of this message need to be communicated with the patient directly, if the patient is not active onMyChart. If the patient is active on MyChart, they will receive notification of the communication/outcome via [employer]. documented in this encounter Plan of Treatment Upcoming Encounters Date Type Department Care Team ([facility] Contact Info) Description 12/25/2025 1:00 PM EDT Office Visit [facility] [address] [place] [address] Yohana Mensah, JOB TRAINING SUPERVISOR [address] [facility] [address] [place] [address] documented as of this encounter Visit Diagnoses [...] documented as of this encounter Care Teams Optical Laboratory Mechanic Relationship Specialty Start Date End Date Sriram Gee MD [address] [place] [address] PCP - General 03/16/21 documented as of this encounter
--- OUTSIDE RECORDS SUMMARY | 2025-07-10 11:05 | XMS_ITS | Encounter Summary ---
Author Organization [facility] Address [address] [place] [address] Care Team Providers Care Historiography Professor Name Role Phone Sriram Gee MD Primary Care Provider [phone] Reason for Visit * Reason Onset Date Comments HCN - Patient Message 06/07/2025 Encounter Details Date Type Department Care Team (Late st Contact Info) Description 06/07/2025 Telephone [facility] Orthopaedic Surgery & Sports Medicine [address] [facility], [address] [place] [address] Pily Tripathi, DO [address] [facility] [address] [place] [address] HCN - Patient Message Social [...] Notes * Telephone Encounter - Kalyani Apple Kassidy - 06/07/2025 3:36 PM EDT Faxed * Telephone Encounter - Priscilla Hope - 06/07/2025 3:06 PM EDT Clinical Concern/Question Reason for Call: Pt is requesting PT order please fax [phone] @ [facility] phone [phone] Best contact number: [phone] (home) Optimal time of day to reach caller: ANYTIME Additional comments/information from caller: None Note: Please do not reply to this message. Follow-up communication and further actions as a result of this message need to be communicated with the patient directly, if the patient is not active onMyChart. If the patient is active on MyChart, they will receive notification of the communication/outcome via [email or web address]. documented in this encounter Plan of Treatment Upcoming Encounters Date Type Department Care Team (Late st Contact Info) Description 12/25/2025 1:00 PM EDT Office Visit [facility] [address] [facility] 2nd [place] [address] Yohana Mensah, HAND TIER [address] [facility] [address] [place] [address] documented as of this encounter Visit Diagnoses [...] documented as of this encounter Care Teams Historiography Professor Relationship Specialty Start Date End Date Sriram Gee MD [address] [place] [address] PCP - General 03/16/21 documented as of this encounter
--- OUTSIDE RECORDS SUMMARY | 2025-07-10 11:05 | XMS_ITS | Encounter Summary ---
Author Organization [facility] Address [address] [place] [address] Care Team Providers Care Rolling Mill Operator Name Role Phone Sriram Gee MD Primary Care Provider [phone] Encounter Details Date Type Department Care Team (Late Contact Info) Description 05/28/2025 Orders Only External Location [address] [place] [address] Provider, External Social History Tobacco [...] Description 12/25/2025 1:00 PM EDT Office Visit [facility] [address] [facility]nd [place] [address] Yohana Mensah, RESIN FILTERER [address] [facility] [address] [place] [address] documented as of this encounter Procedures Procedure Name Priority Date/Time Associated Diagnosis Comments XR THORACIC OUTSIDE IMAGES 05/28/2025 6:12 PM EDT documented in this encounter Results * XR THORACIC OUTSIDE IMAGES (05/28/2025 6:12 PM EDT) Anatomical Region Laterality Modality Radiographic Kath ging 05/28/2025 6:12 PM EDT External Provider IMG XR PROCEDURES Final Result [...] documented as of this encounter Care Teams Rolling Mill Operator Relationship Specialty Start Date End Date Sriram Gee MD [address] [place] [address] PCP - General 03/16/21 documented as of this encounter
--- OUTSIDE RECORDS SUMMARY | 2025-07-10 11:05 | XMS_ITS | Encounter Summary ---
Author Organization [facility] Address [address] [place] [address] Care Team Providers Care Aviation Safety Equipment Technician Name Role Phone Sriram Gee MD Primary Care Provider Encounter Details Date Type Department Care Team (Late Contact Info) Description 05/28/2025 Orders Only External Location [address] [place] [address] Provider, External Social History Tobacco [...] Description 12/25/2025 1:00 PM EDT Office Visit [facility] [address] [facility]nd [place] [address] Yohana Mensah, INDUCTION COORDINATION POWER ENGINEER [address] [facility] [address] [facility] [address] [place] [address] documented as of this encounter Procedures Procedure Name Priority Date/Time Associated Diagnosis Comments XR MSK OUTSIDE IMAGES 05/28/2025 6:17 PM EDT documented in this encounter Results * XR MSK OUTSIDE IMAGES (05/28/2025 6:17 PM EDT) Anatomical Region Laterality Modality Radiographic Kath ging 05/28/2025 6:17 PM EDT us External Provider IMG XR [...] documented as of this encounter Care Teams Aviation Safety Equipment Technician Relationship Specialty Start Date End Date Sriram Gee MD [address] [place] [address] PCP - General 03/16/21 documented as of this encounter
--- OUTSIDE RECORDS SUMMARY | 2025-07-10 11:05 | XMS_ITS | Encounter Summary ---
Author Organization [facility] Address [address] [place] [address] Care Team Providers Care Gold Reclaimer Name Role Phone Sriram Gee MD Primary Care Provider [phone] Encounter Details Date Type Department Care Team (Latest Contact Info) Description 05/22/2025 Travel Social History Tobacco Use Types Packs/Day [...] Description 12/25/2025 1:00 PM EDT Office Visit [facility] [address] [facility] [place] [address] Yohana Mensah, GETTERING FILAMENT MACHINE OPERATOR [address] [facility] [address] [place] [address] documented as of this encounter Visit Diagnoses [...] documented as of this encounter Care Teams Gold Reclaimer Relationship Specialty Start Date End Date Sriram Gee MD [address] [place] [address] PCP - General 03/16/21 documented as of this encounter
--- OUTSIDE RECORDS SUMMARY | 2025-07-10 11:05 | XMS_ITS | Clinical Summary ---
Author Organization [facility] Address [address] [address] Phone Care Team Providers Care Oracle Database Consultant Name Role Phone Nonstaff, Referring Primary Care Provider Sharonavabreann lable Allergies Active Allergy Reactions Criticality Noted Date Comments Fluticasone Propion-Salmeterol Rash 05/28 Medications No known medications Encounters Date Type Department Care Team Description 05/28/2025 5:48 PM EDT - 05/28/2025 7:49 PM EDT Emergency [facility] [address] [place], [place] [id number] Tre Ribera MD Closed nondisplaced fracture of head of right radius, initial encounter (Primary Dx) Discharge Disposition: Home or Self Care from Last 3 Months Social History Tobacco Use Types Packs/Day Years [...] - - Body Mass Index - - Plan of Treatment Health Maintenance Due Date Last Done Comments Annual Wellness Exam 1973 DTaP/TDaP/Td (1 - Tdap) 1989 Hepatitis B Vaccine (1 of 3 - 19+ 3-dose series) 1989 Cervical Cancer Screening 1991 Pap Smear 1991 HPV/Pap Cotest 2000 Breast Cancer Screening 2010 Cologuard 2015 Colon Cancer Screening 2015 Colonoscopy 2015 FIT 2015 Sigmoidoscopy 2015 Virtual Colonography 2015 Zoster (1 of 2) 2020 Pneumococcal Vaccine 50+ (3 of 3 - PCV20 or PCV21) 01/10/2023 01/10/2018, 02/26/2015 COVID-19 Vaccine (1 - 2023-2 5 season) 2025 Influenza Vaccine (#1) 2025 8, 11/02/2013 Meningococcal B Vaccine Aged Out No l onger eligible based on patient's age to complete this topic Procedures Procedure Name Priority Date/Time Associated Diagnosis Comments XR ELBOW RIGHT AP LATERAL AND OBLIQUES JASEN 05/28/2025 6:23 PM EDT XR WRIST RIGHT PA LATERAL AND OBLIQUE JASEN 05/28/2025 6:23 PM EDT XR RIBS RIGHT 2 VW JASEN 05/28/2025 6: 23 PM EDT from Last 3 Months Results * XR WRIST RIGHT PA LATERAL AND [...] office of the ordering clinician. Gloria [facility] ORDERAB LES Final Result * XR ELBOW RIGHT AP LATERAL AND [...] office of the ordering clinician. Gloria [facility]ILL[facility] ORDER[facility] Final Result * [...] office of the ordering clinician. Gloria MILLER [facility] Final Result from Last 3 Months Insurance [facility] Care Teams Oracle Database Consultant Relationship Specialty Start Date End Date Nonstaff, Referring PCP - General 05/28/25
--- OUTSIDE RECORDS SUMMARY | 2025-07-10 11:05 | XMS_ITS | Encounter Summary ---
Author Organization [facility] Address [address] [place] [address] Care Team Providers Care Senior Publications Specialist Name Role Phone Sriram Gee MD Primary Care Provider [phone] Encounter Details Date Type Department Care Team (Latest Contact Info) Description 06/02/2025 Travel Social History Tobacco Use Types Packs/Day [...] Description 12/25/2025 1:00 PM EDT Office Visit [facility] [address] [facility]nd [place] [address] Yohana Mensah, COOK HELPER [address] [facility] [address] [place] [address] documented as of this encounter Visit Diagnoses [...] documented as of this encounter Care Teams Senior Publications Specialist Relationship Specialty Start Date End Date Sriram Gee MD [address] [place] [address] PCP - General 03/16/21 documented as of this encounter
--- OUTSIDE RECORDS SUMMARY | 2025-07-10 11:05 | XMS_ITS ---
Author Organization [facility] Address [address] [place] [address] Care Team Providers Care Kennel Operator Name Role Phone Sriram Gee MD Primary Care Provider [phone] Active Problems Problem Noted Date Diagnosed Date Postoperative hypothyroidism 11/16/2023 Thyroid cancer 11/17/2022 Acquired absence of both breasts 11/05/2022 Hematoma of breast 08/06/2022 Overview (11/06/2022): Added automatically from request for surgery [id number] Capsular contracture of breast implant Overview (06/03/2021): Added automatically from request for surgery [id number] Malignant neoplasm of upper- inner quadrant of left breast in female, estrogen receptor positive 05/21/2021 Cancer Staging:Pathologic stage from 12/02/2017:Stage IIIB(pT3, pN3a, cM0, G3, ER+, [place]+, HER2-) - Signed by Viridiana Escalante MD [...] medications scheduled. Therapy Complete Viridiana Escalante MD Resolved Problems Problem Noted Date Diagnosed Date Resolved Date Status post bilateral breast reconstruction 11/17/2022 07/02/2025
--- OUTSIDE RECORDS SUMMARY | 2025-07-10 11:05 | XMS_ITS | Clinical Summary ---
Author Organization [facility] Address [address] [place] [address] Care Team Providers Care 911 Telecommunicator Name Role Phone Sriram Gee MD Primary [...] - PCV20 or PCV21) 01/10/2023 01/10/2018, 02/26/2015 INFLUENZA VACCINE 05/12/2025 01/10/2018, , 11/02/2013 Insurance [employer] Care Teams 911 Telecommunicator Relationship Specialty Start Date End Date Sriram Gee MD [address] [place] [address] PCP - General Family Medicine 04/20/23
--- OUTSIDE RECORDS SUMMARY | 2025-07-10 11:05 | XMS_ITS | Encounter Summary ---
Author Organization [facility] Address [address] [place] [address] Care Team Providers Care Community Reinvestment Act Officer Name Role Phone Sriram Gee MD Primary Care Provider [phone] Encounter Details Date Type Department Care Team (Latest Contact Info) Description 06/09/2025 Travel Social History Tobacco Use Types Packs/Day [...] Description 12/25/2025 1:00 PM EDT Office Visit [facility] [address] [facility]nd [place] [address] Yohana Mensah, SHEET METAL PRODUCTION WORKER [address] [facility] [address] [place] [address] documented as of this encounter Visit Diagnoses [...] documented as of this encounter Care Teams Community Reinvestment Act Officer Relationship Specialty Start Date End Date Sriram Gee MD [address] [place] [address] PCP - General 03/16/21 documented as of this encounter
--- OUTSIDE RECORDS SUMMARY | 2025-07-10 11:05 | XMS_ITS | Clinical Summary ---
Author Organization [facility] Address [address] [place] [address] Care Team Providers Care Vault Person Name Role Phone Sriram Gee MD Primary Care Provider Allergies Active Allergy Reactions Criticality Noted Date [...] (joint pain). 30 tablet 3 2 Active Additional Information Patient not taking.Reported on 05/29/2025 methocarbamol (Robaxin) 500 MG tablet Take 1 tablet (500 mg total) by mouth 3 (three) times a day. 90 tablet 3 2 Active Additional Information Patient not taking.Reported on 05/29/2025 promethazine (Phenergan) 12.5 MG tablet Take 1 tablet (12.5 mg total) by mouth every 8 (eight) hours if needed for nausea or vomiting. 15 tablet 3 Active Additional Information Patient not taking.Reported on 05/29/2025 Synthroid 137 MCG tablet Take 1 tablet (137 mcg) by mouth daily. 4 Active DULoxetine (Cymbalta) [address] capsule Take 1 capsule by mouth daily. 30 capsule 5 Active diclofenac (Voltaren) 75 MG EC tablet Take 1 tablet by mouth 2 times a day. Do not crush, chew, or split. 28 tablet 5 Active Active Problems Problem Noted Date Diagnosed Date Postoperative hypothyroidism 11/16/2023 Thyroid cancer 11/17/2022 Acquired absence of both breasts 11/05/2022 Hematoma of breast 08/06/2022 Overview (11/06/2022): Added automatically from request for surgery [id number] Capsular contracture of breast implant Overview (06/03/2021): Added automatically from request for surgery [id number] Malignant neoplasm of upper- inner quadrant of left breast in female, estrogen receptor positive 05/21/2021 Cancer Staging:Pathologic stage from 12/02/2017:Stage IIIB(pT3, pN3a, cM0, G3, ER+, UT+, HER2-) - Signed by Viridiana Escalante MD [...] left female breast Breast cancer, female 11/05/2017 Resolved Problems Problem Noted Date Diagnosed Date Resolved Date Status post bilateral breast reconstruction 11/17/2022 07/02/2025 Encounters Date Type Department Care Team Description 06/09/2025 1:00 PM EDT Office Visit [facility] [address], [address] [place] [id number] Pily Tripathi, Right elbow pain (Primary Dx); Closed nondisplaced fracture of head of right radius with routine healing, subsequent encounter 06/09/2025 12:41 PM EDT - 06/09/2025 11:59 PM EDT Hospital Encounter [facility] X-[facility] [address], [address] [place] [address] Right elbow pain Discharge Disposition: Home or Self Care 06/09/2025 Travel 06/09/2025 Telephone [facility] [address] , [address] [place] [address] Pily Tripathi, DO HCN - Patient Message 06/08/2025 Travel 06/07/2025 Telephone [facility] [address] , [address] [place] [address] Pily Tripathi, DO HCN - Patient Message 06/02/2025 8:00 AM EDT Office Visit [facility] [address], [address] [place] [address] Pily Tripathi, Right elbow pain (Primary Dx); Closed nondisplaced fracture of head of right radius with routine healing, subsequent encounter 06/02/2025 7:58 AM EDT - 06/02/2025 11:59 PM EDT Hospital Encounter [facility] X[facility] [address] [place] [address] Right elbow pain Discharge Disposition: Home or Self Care 06/02/2025 Travel 05/29/2025 8:20 AM EDT Office Visit [facility] [address], [address] [place] [address] Pily Tripathi, Closed nondisplaced fracture of head of right radius, initial encounter (Primary Dx); Tenderness of anatomical snuffbox 05/29/2025 Travel 05/28/2025 Orders Only External Location [address] [place] [address] Provider, External 05/28/2025 Orders Only External Location [address] [place] [address] Provider, External 05/28/2025 Orders Only External Location [address] [place] [address] Provider, External 05/22/2025 2:30 PM EDT Office Visit [facility] [address] [place] [address] Chrissie Nielsen MD Acquired absence of both breasts (Primary Dx) 05/22/2025 Travel 04/19/2025 Orders Only [facility] [address] [place] [address] Sugey Bernstein RN from Last 3 Months [...] Orientation Straight 08/26/2021 2: 42 PM EST Last Filed Vital Signs Vital Sign Reading Time Taken Comments Blood Pressure 106/72 06/09/2025 12:38 PM EDT Pulse 88 05/22/2025 2:29 PM EDT Temperature 36.8 C (98.3 F) 12/06/2024 2:03 PM EST Respiratory Rate 14 03/29/2024 1:30 PM EDT Oxygen Saturation 99% 05/29/2025 9:08 AM EDT Inhaled Oxygen Concentration - - Weight 101 kg (222 lb) 06/09/2025 12:38 PM EDT Height 175.3 cm (5' 9 ) 06/09/2025 12:38 PM EDT Body Mass Index 32.78 06/09/2025 12:38 PM EDT Plan of Treatment Upcoming Encounters Date Type Department Care Team (Late st Contact Info) Description 12/25/2025 1:00 PM EDT Office Visit [facility] [address] [facility] [place] [address] Yohana Mensah, RESEARCH CHEMIST [address] [place] [address] Health Maintenance Due Date Last Done Comments [facility]-/Child/Adol SDOH Screenings 1970 [id number] Vaccine (#1) 1975 [facility]- SDOH Screenings 1988 [facility]-Adult SDOH Screenings 1988 [facility]-DTaP,Tdap,and Td Vaccines (1 - Tdap) 1989 [facility]-Hepatitis B Vaccines (1 of 3 - 19+ 3-dose series) 1989 [facility]-Zoster Vaccines (1 of 2) 1989 CT Colonography 2015 Colonoscopy 2015 FIT-DNA 2015 FIT 2015 FOBT 2015 Sigmoidoscopy 2015 [facility]-Colorectal Cancer Screening 2015 [facility]-Pneumococcal Vaccine: 50+ Years (3 of 3 - PCV20 or PCV21) 01/10/2023 01/10/2018, 02/26/2015 [facility]-Influenza Vaccine (#1) 2025 01/10/2018, [facility]-Depression Screening 12/06/2025 12/06/2024, 11/13 [facility]-Cervical Cancer Screening Discontinued [facility]-HPV/Cotest Discontinued 11/03/2017, 11/13, 08/25/2011, Additional history exists [facility]-Pap Smear Discontinued 11/03/2017, 11/13, 08/25/2011, Additional history exists [facility]-HIV Screening Completed 03/29/2024, 03/16/2021 [facility]-Hepatitis C Screening Completed 2023, 03/16/2021, 04/26/2020, Additional history exists [facility]-Obesity Intervention Completed 025, 06/02/2025, 05/29/2025, Additional history exists HPV Vaccines Aged Out [...] this topic Medical Devices Implanted Type Area Technical Publications Writer Device Identifier Shelf Expiration Date Model / Serial / Lot Breast Implants Bilateral: Breast Graft Nerve Avance 70mm 2-3mm - [id number] Implanted:Qty: 1 on 11/05/2022 by Chrissie Nielsen MD at [facility] Breast [id number] 03/11/2025 [id number] / / [id number] Graft Nerve Avance 70mm 2-3mm - [id number] Implanted:Qty: 1 on 11/05/2022 by Chrissie Nielsen MD at [facility] Breast [employer] [id number]-[id number] 06/11/2025 [id number] / / [id number] Mesh Strattice 10x10 - [id number] Implanted:Qty: 1 on 11/05/2022 by Chrissie Nielsen MD at [facility] [employer]-[id number] 03/11/2024 [id number] / / [id number] Procedures Procedure Name Priority Date/Time Associated Diagnosis Comments XR ELBOW RIGHT 3+ VIEWS Routine 06/09/20 12:47 PM EDT Right elbow pain XR WRIST RIGHT 3+ VIEWS Routine 06/02/20 8:15 AM EDT Right elbow pain XR ELBOW RIGHT 3+ VIEWS Routine 06/02/20 8:15 AM EDT Right elbow pain XR MSK OUTSIDE IMAGES 05/28/2025 6:17 PM EDT XR MSK OUTSIDE IMAGES 05/28/2025 6:15 PM EDT XR THORACIC OUTSIDE IMAGES 05/28/2025 6:12 PM EDT HEPATITIS C ANTIBODY - ED W/REFLEX TO HCV QUANT PCR STAT 03/29/2024 10:03 AM EDT ED HIV 1/2 ANTIBODY/ANTIGEN SCREEN WITH REFLEX TO HIV I/II DIFFERENTIATION STAT 03/29/2024 10:03 AM EDT CYTO DATA CONVERSION Routine 11/03/2017 12:00 AM EST from Last 3 Months or Most Recently Relevant to Health Maintenance Results * XR Elbow Right 3+ Views (06/09/2025 12:47 PM EDT) Only the most recent of2 resultswithin the time period is included. Anatomical Region Laterality Modality Upper Extremities, Elbow [...] signing this report, I, the attending physician, attestthat I have personally reviewed the images/data for the aboveexamination(s) and agree with the final edited report. Drafted by Vincenzo Lui MD on 06/09/2025 2:32 PM Final report signed by Merary Jean MD on 06/09/2025 3:58 PM Pily Tripathi DO IMG XR PROCEDURES Final R esult * XR Wrist Right 3+ Views (06/02/2025 [...] XR PROCEDURES Final R esult * XR MSK OUTSIDE IMAGES (05/28/2025 6:17 PM EDT) Only the most recent of2 resultswithin the time period is included. Anatomical Region Laterality Modality Radiographic Kath ging 05/28/2025 6:17 PM EDT us External Provider IMG XR PROCEDURES Final Result * XR THORACIC OUTSIDE IMAGES (05/28/2025 6:12 PM EDT) Anatomical Region Laterality Modality Radiographic Kath ging 05/28/2025 6:12 PM EDT us External Provider IMG XR PROCEDURES Final Result * ED HIV 1/2 Antibody/Antigen Screen w/Reflex to HIV 1/2 Differentiation (03/29/2024 10:03 AM EDT) Pathologist [facility] HIV 1 & 2 Antibody/Antigen Screen Non Reactive Non Reactive 03/29/2024 11:09 AM EDT [facility] Comment:Screening for HIV 1 & 2 antibodies, and P24 antigen is NONREACTIVE. No confirmatory testing is required. Blood Venous blood specimen / Unknown Venipuncture / Unknown 03/29/2024 10:03 AM EDT 03/29/2024 10:26 AM EDT Eyad Walker MD LAB BLOOD ORDERABLES Final Result [facility] [address] [place] [address] * Hepatitis C Antibody - ED (03/29/2024 10:03 AM EDT) Hepatitis C Antibody Negative Negative 03/29/2024 11:09 AM EDT [facility] Blood Venous blood specimen / Unknown Venipuncture / Unknown 03/29/2024 10:03 AM EDT 03/29/2024 10:26 AM EDT Eyad Walker MD LAB BLOOD ORDERABLES Final Result Performing Organization Address City/[facility] Co de Phone Number [facility] [address] [place] [address] * Cytology (11/03/2017 12:00 AM EST) Specimen from axillary lymph node obtained by fine needle aspiration biopsy (specimen) 11/03/2017 11/03/2017 2:59 PM EST Narrative [facility]QUEST - 11/04/2017 6:20 PM EST [facility] MR #: [id number] [facility] [place] [id number] 1970 (Age: 46) FW Collect Date: 11/03/2017 00:00 Receipt Date: 11/03/2017 14:59 Page 1 DEPARTMENT OF PATHOLOGY AND LABORATORY MEDICINE CYTOPATHOLOGY REPORT Email: [email or web address] [phone] ATTENDING MD/Practitioner: Nadia Gipson M.D. Service: [facility] Location: [facility] OTHER MD(S): Kirstin Wills MD Reported: 11/04/2017 [...] 7 Immediate evaluation performed by: Dr. Branch/ [place] Evaluation episode # 1-4: Adipose tissue and [...] axilla and upper limb nodes F: A; 99418 ASP INTER, 23102, 33778, 46305 SNOMED CODES: A; R90615 GH7485 P1149 [id number] A resident has participated in this service. A pathologist has performed and is responsible for the reported pathologic evaluation. Kaushal Gipson MD LAB PATHOLOGY ORDERABLES Salud joe Result [facility] from Last 3 Months or Most Recently Relevant to Health Maintenance Insurance [facility] Advance Directives * Full Code (Latest Code Status on File) Date Activated Date Inactivated Comments 11/05/2022 7:53 AM 11/09/2022 2:55 PM Question Answer Comments Patient has decision-making capacity? Yes Care Teams Vault Person Relationship Specialty Start Date End Date Sriram Gee MD [address] [facility] [address] [place], [place] [id number] PCP - General 03/16/21
--- OUTSIDE RECORDS SUMMARY | 2025-07-10 11:05 | XMS_ITS | Encounter Summary ---
Author Organization Healthcare Address [address] [place] [address] Care Team Providers Care Colored Liquid Plastic Applier Name Role Phone Sriram Gee MD Primary Care Provider [phone] Encounter Details Date Type Department Care Team (Latest Contact Info) Description 06/08/2025 Travel Social History Tobacco Use Types Packs/Day [...] Description 12/25/2025 1:00 PM EDT Office Visit [facility] [address] [facility] [place] [address] Yohana Mensah, PHOTO LAB TECHNICIAN [address] [place] [address] documented as of this encounter Visit Diagnoses [...] documented as of this encounter Care Teams Colored Liquid Plastic Applier Relationship Specialty Start Date End Date Sriram Gee MD [address] [place] [address] PCP - General 03/16/21 documented as of this encounter
== END 2025-07-07 23:59 ==
LOC: LAB.DROPOF 07-10 10:58
PROVIDERS: PCP Nurse Practitioner; Visit Provider Nurse Practitioner
DX: J06.9 Acute upper respiratory infection, unspecified (principal)
CPT/HCPCS: 87631

== ENCOUNTER 2025-07-31 12:04 | Outpatient (CLI) | payer BC, SELFPAY ==
[2025-07-31 14:48] LABS: Free T4 (Free Thyroxine) 0.92 ng/dl (0.78-2.19)
[2025-07-31 17:05] LABS: T4 (Thyroxine) 7.1 ug/dl (5.53-11.0)
[2025-07-31 17:18] LABS: Thyroid Stimulating Hormone 8.04 uIU/mL (0.465-4.68)
[2025-08-01 12:15] LABS: Triiodothyronine (T3) Free 2.7 pg/mL (2.0-4.4)
--- OUTSIDE RECORDS SUMMARY | 2025-08-02 12:43 | XMS_ITS | Data Portability ---
Author Organization [facility] Address [address] [place] [address] Assessment No assessment recorded. Plan of Treatment Reminders Order Date Submit Date Provider Last Modified By Organization Details Last Modified Time Details Appointments None recorded. Lab urinalysis, dipstick 2022 023 [facility], [address] [place] [address], [address], 3 11:58:30 culture, urine 2022 023 JONAH [facility], [address], [place] [address], [place], [address], 3 03:05:56 CBC w/ auto diff 2022 023 JONAH [facility], [address], [place] [address], [place], [address], 3 03:05:54 CMP, serum or plasma 2022 023 JONAH [facility], [address], [place] [address], [place], [address], 3 03:05:55 urinalysis, dipstick 2022 023 [facility], [address] [place] [address], [address], 3 13:30:57 culture, urine 2022 023 BRADLEY [facility], [address], [place] [address], [place], [address], 3 00:06:12 culture, urine 2021 022 BRADLEY [facility], [address], [place] [address], [place], [address], 2 06:15:00 urinalysis, dipstick 2021 022 [facility], [address] [place] [address] , [place], [address], 2 10:14:27 rapid SARS CoV + SARS CoV 2 Ag, QL IA, respiratory specimen 2021 [facility], [address] [place] [address], [address], 2 08:19:25 rapid flu (A+B) 2021 [facility], [address] [place] [address], [address], 08:19:25 Referral None recorded. Procedures None recorded. Surgeries None recorded. Imaging CT, abdomen + pelvis, w/ contrast - r/o complicatio n to surgery? fistula, hx of breast ca with mets, poss mets? needs oral contrast 2022 023 [facility], [address] [place] [address] , [place], [address], 3 09:23:03 Medication Orders fluticasone propionate 50 mcg/actuati on nasal spray,suspe nsion 2023 024 BRADLEY [id number], [address] [address], [place], [place], [id number], 4 15:50:39 Zithromax Z-Gigi 250 mg tablet 2023 024 [facility]22267, [address], [id number], 4 15:50:37 dexamethaso ne sodium phosphate 4 mg/mL injection solution 2023 024 [email or web address] Not available 4 15:53:08 prednisone 10 mg tablet 2023 024 [facility] #70005, [address], [id number], 4 15:50:38 cephalexin 500 mg capsule 2022 023 [facility]45961, [address], [id number], 3 10:34:50 dexamethaso ne sodium phosphate 4 mg/mL injection solution 2022 023 [email or web address] Not available 3 10:34:39 Macrobid 100 mg capsule [address], [address], 3 13:04:12 ceftriaxone 1 gram solution for injection [address], [address], 2 09:49:02 cefdinir 300 mg capsule [address], [address], 4 15:18:37 Patient TargetsNo targets recorded. Patient Instructions Encounter Date Encounter Id Patient Instructions Last Modified By Organization Details Last Modified Time 03/13/2023 [id number] body mass index: care instructions efryman Not available 03/13/2023 13:30:57 learning about healthy weight efryman Not available 03/13/2023 13:30:58 Reason for Referral None Reported. Results Created Date Observation Date Name Description Value Unit Range Abnormal Flag Note LastModifiedBy Organization Detail LastModifiedTime 07/21/20 22 07/21/2022 rapid flu (A+B) Flu negati ve Not Available [address], [address], 07/21/2022 16:27:12 07/21/20 22 07/21/2022 rapid flu (A+B) Type Both A & B Not Available [address], [address], 07/21/2022 16:27:12 07/21/20 22 07/21/2022 rapid SARS CoV + SARS CoV 2 Ag, QL IA, respi rator y speci men SARS CoV antigen Negati ve Not Available [address], [address], 07/21/2022 16:26:52 09/11/20 22 09/13/2022 URINE CULTU REJAMI NE urine culture, routine Final report Not Available [facility] ([facility]) [address] [place], [address], 09/13/2022 06:15:00 09/11/20 22 09/13/2022 URINE CULTU REJAMI NE result 1 Commen t Mixed uroge nital syl 10,00 0-25, 000 colon y formi ng units per mL Not Available [facility] ([facility]) [address] [place], [address], 09/13/2022 06:15:00 09/11/20 22 09/11/2022 urina lysis , dipst ick Leukocytes Negati ve Not Available [facility] [address] [place] [address] , [place], [address], 09/11/2022 09:45:12 09/11/20 22 09/11/2022 urina lysis , dipst ick Nitrite positi ve Not Available [facility]/[address] , [place], [address], 09/11/2022 09:45:12 09/11/20 22 09/11/2022 urina lysis , dipst ick Urobilinogen .2 Not Available [facility] [address] [place] [address] , [place], [address], 09/11/2022 09:45:12 09/11/20 22 09/11/2022 urina lysis , dipst ick Protein Negati ve Not Available [facility]/[address] , [place], [address], 09/11/2022 09:45:12 09/11/20 22 09/11/2022 urina lysis , dipst ick pH 5.0 Not Available [facility]/[address] , [place], [address], 09/11/2022 09:45:12 09/11/20 22 09/11/2022 urina lysis , dipst ick Blood Modera te Not Available [facility]/[address] , [place], [address], 09/11/2022 09:45:12 09/11/20 22 09/11/2022 urina lysis , dipst ick Specific [place] 1.005 Not Available [facility] [address] [place] [address] , [place], [address], 09/11/2022 09:45:12 09/11/20 22 09/11/2022 urina lysis , dipst ick Ketone Negati ve Not Available [facility] [address] [place] [address] , [place], [address], 09/11/2022 09:45:12 09/11/20 22 09/11/2022 urina lysis , dipst ick Bilirubin Negati ve Not Available [facility] [address] [place] [address] , [place], [address], 09/11/2022 09:45:12 09/11/20 22 09/11/2022 urina lysis , dipst ick Glucose Negati ve Not Available [facility]/[address] , [place], [address], 09/11/2022 09:45:12 09/11/20 22 09/11/2022 urina lysis , dipst ick Appearance Slight ly Cloudy Not Available [address] , [place], [address], 09/11/2022 09:45:12 09/11/20 22 09/11/2022 urina lysis , dipst ick Color Yellow Not Available [facility]/[address] , [place], [address], 09/11/2022 09:45:12 03/13/20 23 03/19/2023 URINE CULTU RE, JAMI NE urine culture, routine Final report abnormal Not Available [facility] ([facility]) [address] [facility], [place], [address], 03/20/2023 00:06:12 03/13/20 23 03/19/2023 URINE CULTU RE, ROUTI NE result 1 COMMEN T abnormal Pj tella ornit hinol ytica Great er than 100,0 00 colon y formi ng units per mL Not Available [facility] ([facility]) [address] [facility], [place], [address], 03/20/2023 00:06:12 03/13/20 23 03/19/2023 URINE CULTU [...] thopr im/Royal lfa S Not Available [facility] ([facility]) [address] [facility], [place], [address], 03/20/2023 00:06:12 03/13/20 23 03/14/2023 PLEAS E NOTE please note Commen t The date and/o r time of colle ction was not indic ated on the requi sitio n as requi red by state and jose al law. The date of recei pt of the speci men was used as the colle ction date if not suppl ied. Not Available [facility] ([facility]) [address] [facility], [place], [address], 03/20/2023 00:06:13 03/13/20 23 03/13/2023 urina lysis , dipst ick Leukocytes Trace Not Available [address], [address], 03/13/2023 13:07:58 03/13/20 23 03/13/2023 urina lysis , dipst ick Nitrite negati ve Not Available [facility] [address], [address], 03/13/2023 13:07:58 03/13/20 23 03/13/2023 urina lysis , dipst ick Urobilinogen .2 Not Available [facility] [address], [address], 03/13/2023 13:07:58 03/13/20 23 03/13/2023 urina lysis , dipst ick Protein Negati ve Not Available [address], [address], 03/13/2023 13:07:58 03/13/20 23 03/13/2023 urina lysis , dipst ick pH 6.5 Not Available [address], [address], 03/13/2023 13:07:58 03/13/20 23 03/13/2023 urina lysis , dipst ick Blood Negati ve Not Available [address], [address], 03/13/2023 13:07:58 03/13/20 23 03/13/2023 urina lysis , dipst ick Specific [place] 1.025 Not Available [address], [address], 03/13/2023 13:07:58 03/13/20 23 03/13/2023 urina lysis , dipst ick Ketone Negati ve Not Available [address], [address], 03/13/2023 13:07:58 03/13/20 23 03/13/2023 urina lysis , dipst ick Bilirubin Negati ve Not Available [address], [address], 03/13/2023 13:07:58 03/13/20 23 03/13/2023 urina lysis , dipst ick Glucose Negati ve Not Available [address], [address], 03/13/2023 13:07:58 03/13/20 23 03/13/2023 urina lysis , dipst ick Appearance Clear Not Available [address], [address], 03/13/2023 13:07:58 03/13/20 23 03/13/2023 urina lysis , dipst ick Color Dark Yellow Not Available [address], [address], 03/13/2023 13:07:58 04/13/20 23 04/14/2023 CBC WITH DIFFE RENTI AL/PL ATELE T WBC 6.3 x10e3 /uL 3.4-10 .8 Not Available [facility] ([facility]) [address] [place], [address], 04/15/2023 03:05:54 04/13/20 23 04/14/2023 CBC WITH DIFFE RENTI AL/PL ATELE T RBC 5.32 x10e6 /uL 3.77-5 .28 above high normal Not Available [facility] ([facility]) [address] [place], [address], 04/15/2023 03:05:54 04/13/20 23 04/14/2023 CBC WITH DIFFE RENTI AL/PL ATELE T hemoglobin 14.8 g/dL 11.1-1 5.9 Not Available [facility] ([facility]) [address] [place], [address], 04/15/2023 03:05:54 04/13/20 23 04/14/2023 CBC WITH DIFFE RENTI AL/PL ATELE T hematocrit 45.4 % 34.0-4 6.6 Not Available [facility] ([facility]) [address] [facility], [place], [address], 04/15/2023 03:05:54 04/13/2004/14/2023 CBC WITH DIFFE RENTI AL/PL ATELE T MCV 85 fL 79-97 Not Available [facility] ([facility]) [address] [place], [address], 04/15/2023 03:05:54 04/13/2004/14/2023 CBC WITH DIFFE RENTI AL/PL ATELE T MCH 27.8 pg 26.6-3 3.0 Not Available [facility] ([facility]) [address] [place], [address], 04/15/2023 03:05:54 04/13/2004/14/2023 CBC WITH DIFFE RENTI AL/PL ATELE T MCHC 32.6 g/dL 31.5-3 5.7 Not Available [facility] ([facility]) [address] [place], [address], 04/15/2023 03:05:54 04/13/2004/14/2023 CBC WITH DIFFE RENTI AL/PL ATELE T RDW 17.4 % 11.7-1 5.4 above high normal Not Available [facility] ([facility]) [address] [place], [address], 04/15/2023 03:05:54 04/13/2004/14/2023 CBC WITH DIFFE RENTI AL/PL ATELE T platelets 211 x10e3 /uL 150-45 0 Not Available [facility] ([facility]) [address] [place], [address], 04/15/2023 03:05:54 04/13/20 23 04/14/2023 CBC WITH DIFFE RENTI AL/PL ATELE T neutrophils 68 % not estab. Not Available [facility] ([facility]) [address] [facility], [place], [address], 04/15/2023 03:05:54 04/13/20 23 04/14/2023 CBC WITH DIFFE RENTI AL/PL ATELE T lymphs 21 % not estab. Not Available [facility] ([facility]) [address] [facility], [place], [address], 04/15/2023 03:05:54 04/13/20 23 04/14/2023 CBC WITH DIFFE RENTI AL/PL ATELE T monocytes 9 % not estab. Not Available [facility] ([facility]) [address] [facility], [place], [address], 04/15/2023 03:05:54 04/13/20 23 04/14/2023 CBC WITH DIFFE RENTI AL/PL ATELE T eos 1 % not estab. Not Available [facility] ([facility]) [address] [facility], [place], [address], 04/15/2023 03:05:54 04/13/20 23 04/14/2023 CBC WITH DIFFE RENTI AL/PL ATELE T basos 1 % not estab. Not Available [facility] ([facility]) [address] [facility], [place], [address], 04/15/2023 03:05:54 04/13/20 23 04/14/2023 CBC WITH DIFFE RENTI AL/PL ATELE T immature cells [employer] Not Available [facility] ([facility]) [address] [facility], [place], [address], 04/15/2023 03:05:54 04/13/20 23 04/14/2023 CBC WITH DIFFE RENTI AL/PL ATELE T neutrophils (absolute) 4.3 x10e3 /uL 1.4-7. 0 Not Available [facility] ([facility]) [address] [facility], [place], [address], 04/15/2023 03:05:54 04/13/20 23 04/14/2023 CBC WITH DIFFE RENTI AL/PL ATELE T lymphs (absolute) 1.4 x10e3 /uL 0.7-3. 1 Not Available [facility] ([facility]) [address] [facility], [place], [address], 04/15/2023 03:05:54 04/13/20 23 04/14/2023 CBC WITH DIFFE RENTI AL/PL ATELE T monocytes(ab solute) 0.6 x10e3 /uL 0.1-0. 9 Not Available [facility] ([facility]) [address] [facility], [place], [address], 04/15/2023 03:05:54 04/13/20 23 04/14/2023 CBC WITH DIFFE RENTI AL/PL ATELE T eos (absolute) 0.1 x10e3 /uL 0.0-0. 4 Not Available [facility] ([facility]) [address] [facility], [place], [address], 04/15/2023 03:05:54 04/13/20 23 04/14/2023 CBC WITH DIFFE RENTI AL/PL ATELE T baso (absolute) 0.0 x10e3 /uL 0.0-0. 2 Not Available [facility] ([facility]) [address] [facility], [place], [address], 04/15/2023 03:05:54 04/13/20 23 04/14/2023 CBC WITH DIFFE RENTI AL/PL ATELE T immature granulocytes 0 % not estab. Not Available [facility] ([facility]) [address] [facility], [place], [address], 04/15/2023 03:05:54 04/13/20 23 04/14/2023 CBC WITH DIFFE RENTI AL/PL ATELE T immature grans (abs) 0.0 x10e3 /uL 0.0-0. 1 Not Available [facility] ([facility]) [address] [facility], [place], [address], 04/15/2023 03:05:54 04/13/20 23 04/14/2023 CBC WITH DIFFE RENTI AL/PL ATELE T NRBC [employer]NAGER [employer] Not Available [facility] ([facility]) [address] [facility], [place], [address], 04/15/2023 03:05:54 04/13/20 23 04/14/2023 CBC WITH DIFFE RENTI AL/PL ATELE T hematology comments: [employer]NAGER [employer] Not Available [facility] ([facility]) [address] [facility], [place], [address], 04/15/2023 03:05:54 04/13/20 23 04/14/2023 COMP. METAB OLIC PANEL (14) glucose 70 mg/dL 70-99 Not Available [facility] ([facility]) [address] [facility], [place], [address], 04/15/2023 03:05:55 04/13/20 23 04/14/2023 COMP. METAB OLIC PANEL (14) BUN 14 mg/dL 6-24 Not Available [facility] ([facility]) [address] [facility] [place], [address], 04/15/2023 03:05:55 04/13/20 23 04/14/2023 COMP. METAB OLIC PANEL (14) creatinine 0.73 mg/dL 0.57-1 .00 Not Available [facility] ([facility]) [address] [place], [address], 04/15/2023 03:05:55 04/13/20 23 04/14/2023 COMP. METAB OLIC PANEL (14) eGFR 99 mL/mi n/1.7 3 >59 Not Available [facility] ([facility]) [address], [place], [address], 04/15/2023 03:05:55 04/13/20 23 04/14/2023 COMP. METAB OLIC PANEL (14) BUN/creatini ne ratio 19 9-23 Not Available [facility] ([facility]) [address], [place], [address], 04/15/2023 03:05:55 04/13/20 23 04/14/2023 COMP. METAB OLIC PANEL (14) sodium 143 mmol/ L 134-14 4 Not Available [facility] ([facility]) [address] [facility] [place], [address], 04/15/2023 03:05:55 04/13/20 23 04/14/2023 COMP. METAB OLIC PANEL (14) potassium 4.4 mmol/ L 3.5-5. 2 Not Available [facility] ([facility]) [address] [facility], [place], [address], 04/15/2023 03:05:55 04/13/20 23 04/14/2023 COMP. METAB OLIC PANEL (14) chloride 105 mmol/ L 96-106 Not Available [facility] ([facility]) [address] [facility] [place], [address], 04/15/2023 03:05:55 04/13/20 23 04/14/2023 COMP. METAB OLIC PANEL (14) carbon dioxide, total 21 mmol/ L 20-29 Not Available [facility] ([facility]) [address] [facility] [place], [address], 04/15/2023 03:05:55 04/13/20 23 04/14/2023 COMP. METAB OLIC PANEL (14) calcium 9.3 mg/dL 8.7-10 .2 Not Available [facility] ([facility]) [address] [facility] [place], [address], 04/15/2023 03:05:55 04/13/2004/14/2023 COMP. METAB OLIC PANEL (14) protein, total 6.9 g/dL 6.0-8. 5 Not Available [facility] ([facility]) [address] [place], [address], 04/15/2023 03:05:55 04/13/2004/14/2023 COMP. METAB OLIC PANEL (14) albumin 4.6 g/dL 3.8-4. 9 Eff ectiv e April 20, 2023 Album in refer ence inter lupe will be buchanan ing to: Age Male [...] 4.6 3.6 - 4.6 Not Available [facility] ([facility]) [address] [place], [address], 04/15/2023 03:05:55 04/13/2004/14/2023 COMP. METAB OLIC PANEL (14) globulin, total 2.3 g/dL 1.5-4. 5 Not Available [facility] ([facility]) [address] [place], [address], 04/15/2023 03:05:55 04/13/20 23 04/14/2023 COMP. METAB OLIC PANEL (14) A/G ratio 2.0 1.2-2. 2 Not Available [facility] ([facility]) [address] [facility] [place], [address], 04/15/2023 03:05:55 04/13/20 23 04/14/2023 COMP. METAB OLIC PANEL (14) bilirubin, total 0.4 mg/dL 0.0-1. 2 Not Available [facility] ([facility]) [address] [facility] [place], [address], 04/15/2023 03:05:55 04/13/20 23 04/14/2023 COMP. METAB OLIC PANEL (14) alkaline phosphatase 75 IU/L 44-121 Not Available [facility]) [address] [facility], [place], [address], 04/15/2023 03:05:55 04/13/20 23 04/14/2023 COMP. METAB OLIC PANEL (14) AST (SGOT) 19 IU/L 0-40 Not Available [facility] ([facility]) [address] [facility] [place], [address], 04/15/2023 03:05:55 04/13/20 23 04/14/2023 COMP. METAB OLIC PANEL (14) ALT (SGPT) 18 IU/L 0-32 Not Available [facility] ([facility]) [address] [place], [address], 04/15/2023 03:05:55 04/13/20 23 04/15/2023 URINE CULTU RE, ROUTI NE urine culture, routine Final report Not Available [facility] ([facility]) [address] [place], [address], 04/15/2023 03:05:56 0704/15/2023 URINE CULTU RE, ROUTI NE result 1 COMMEN T Mixed uroge nital syl Less than 10,00 0 colon ies/m L Not Available [facility] ([facility]) [address], [place], [address], 04/15/2023 03:05:56 04/13/2004/13/2023 urina lysis , dipst ick Leukocytes Negati ve Not Available [address], [address], 04/13/2023 09:44:15 04/13/2004/13/2023 urina lysis , dipst ick Nitrite negati ve Not Available [address], [address], 04/13/2023 09:44:15 04/13/2004/13/2023 urina lysis , dipst ick Urobilinogen .2 Not Available [facility] [address], [address], 04/13/2023 09:44:15 04/13/2004/13/2023 urina lysis , dipst ick Protein Negati ve Not Available [address], [address], 04/13/2023 09:44:15 04/13/2004/13/2023 urina lysis , dipst ick pH 5.5 Not Available [address], [address], 04/13/2023 09:44:15 04/13/2004/13/2023 urina lysis , dipst ick Blood Negati ve Not Available [address], [address], 04/13/2023 09:44:15 04/13/20 23 04/13/2023 urina lysis , dipst ick Specific [place] 1.015 Not Available [address], [address], 04/13/2023 09:44:15 04/13/20 23 04/13/2023 urina lysis , dipst ick Ketone Negati ve Not Available [address], [address], 04/13/2023 09:44:15 04/13/20 23 04/13/2023 urina lysis , dipst ick Bilirubin Negati ve Not Available [address], [address], 04/13/2023 09:44:15 04/13/2004/13/2023 urina lysis , dipst ick Glucose Negati ve Not Available [address], [address], 04/13/2023 09:44:15 04/13/20 23 04/13/2023 urina lysis , dipst ick Appearance Clear Not Available [address], [address], 04/13/2023 09:44:15 04/13/2004/13/2023 urina lysis , dipst ick Color Yellow Not Available [address], [address], 04/13/2023 09:44:15 04/17/[address], abdom en + pelvi s, w/ contr ast No observ ation record ed. [email or web address] [address] , [place], [address], 04/17/2023 15:21:51 Result Notes None recorded. 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 2021 Christine Wardmond, [employer] [address], [place], [address], [place] - [facility] 2 21:20:58 Dysuria-f requency syndrome 2333838 Active 2021 Sowmya Jake, [employer] [address], [place], [address], [place] - [facility] 2 09:45:07 Problem Notes [...] Name and Address Organization Details Recorded Time 774194 fluticaso ne / salmetero l medicatio n rash Not available Not available 05/06/2022 15760 5 [facility] ELMO Diaz - [facility] 2 15:55:45 488132 Zofran medicatio n nausea Not available Not available 05/06/2022 90317 RxNorm ELMO Diaz - [facility] 2 15:55:54 [...] Arterial blood by Pulse oximetry Respiratory rate Pain severity - 0-10 verbal numeric rating [Score] - Reported Body temperature Systolic And Diastolic Provider Name and Address Organization Details Last Updated DateTime 4 177.8 cm 30.1 kg/m2 70746.4 g 94 /min 98 % 98 % 20 /min 0 97 [degF] 112/70 mm[Hg] Terra Rivas [employer] [facility] 4 15:26:55 Date Recorded Body height Body mass index (BMI) Body weight Body temperature Heart rate Oxygen saturation Oxygen saturation in Arterial blood by Pulse oximetry Respiratory rate Pain severity - 0-10 verbal numeric rating [Score] - Reported Systolic And Diastolic Provider Name and Address Organization Details Last Updated DateTime 3 177.8 cm 29.3 kg/m2 00480.8 4 g 96.8 [degF] 102 /min 98 % 98 % 18 /min 0 118/78 mm[Hg] Terra Rivas [employer] [facility] 3 13:02:32 Date Recorded Body height Body mass index (BMI) Body weight Heart rate Oxygen saturation Oxygen saturation in Arterial blood by Pulse oximetry Respiratory rate Pain severity - 0-10 verbal numeric rating [Score] - Reported Body temperature Systolic And Diastolic Provider Name and Address Organization Details Last Updated DateTime 3 177.8 cm 29.7 kg/m2 20917.6 2 g 95 /min 97 % 97 % 18 /min 0 98.2 [degF] 118/78 mm[Hg] Terra BORREGO [facility] 3 09:52:59 Date Recorded Body height Oxygen saturation Oxygen saturation in Arterial blood by Pulse oximetry Respiratory rate Pain severity - 0-10 verbal numeric rating [Score] - Reported Heart rate Body mass index (BMI) Body weight Body temperature Systolic And Diastolic Provider Name and Address Organization Details Last Updated DateTime 2 177.8 cm 95 % 95 % 16 /min 0 78 /min 26.8 kg/m2 01230.7 7 g 98.1 [degF] 118/78 mm[Hg] Terra Rivas [place] - [facility] 2 16:39:40 Date Recorded Body height Provider Name an d Address Organization Details Last Updated DateTime 09/11/2022 177.8 cm Venecia Stokes [place] - [facility] 022 09:48:38 Social History Question Answer Notes LastModified by Organizat ion Details LastModified Time Tobacco Smoking Status Former Smoker Terra melo, [place] - [facility] 07/21/2022 16:42:25 Do You [...] COVID-19 While That Case Was Ill? No [email or web address] Information not available 01/13/2022 In The 14 Days Before Symptom Onset, Have You Had Close Contact With A Person Who Is Under Investigation For COVID-19 While That Person Was Ill? No [email or web address] Information not available 01/13/2022 Have You Been To An Area Known To Be High Risk For COVID-19? No [email or web address] Information not available 01/13/2022 Are You Deaf Or Do You Have Serious Difficulty Hearing? No Information not available 08/19/2017 What Type Of Diet Are You Following? REGULAR Information not available 08/19/2017 Which Illicit Or Recreational Drugs Have You Used? No Information not available 08/19/2017 Have You Processed Blood Or Body Fluids From An Ebola Virus Disease Patient Without Appropriate PPE? No [email or web address] Information not available 01/13/2022 Do You Reside In Or Have You Traveled To An Area Where Ebola Virus Transmission Is Active? No Information not available 01/13/2022 What Is The Highest Grade Or Level Of School You Have Completed Or The Highest Degree You Have Received? [id number] [email or web address] Information not available 08/10/2018 How Many Days Of Moderate To Strenuous Exercise, Like A Brisk Walk, Did You Do In The Last 7 Days? 1 [email or web address] Information not available 08/10/2018 On Those Days That You Engage In Moderate To Strenuous Exercise, How Many Minutes, On Average, Do You Exercise? 1 [email or web address] Information not available 08/10/2018 Have There Been Any Changes To Your Family Or Social Situation? No [email or web address] Information not available 01/13/2022 How Hard Is It For You To Pay For The Very Basics Like Food, Housing, Medical Care, And Heating? Not Very Hard [email or web address] Information not available 01/13/2022 What Is The Fluoride Status Of Your Home? Fluoridated [email or web address] Information not available 01/13/2022 When Did You Quit Smoking? 1-5yearssincelas jostin Information not available 07/21/2022 Have You Recently Or Are You Planning To Travel To An Area With Zika Virus? No [email or web address] Information not available 01/13/2022 Live Alone Or With Others? With Others Information not available 08/19/2017 Do You Have A Medical Power Of Laminator? No [email or web address] Information not available 01/13/2022 What Was The Date Of Your Most Recent Tobacco Screening? 04/13/2023 Information not available 04/13/2023 How Many Children Do You Have? 2 [email or web address] Information not available 08/10/2018 Performs Monthly Self-breast Exam? No Information not available 08/19/2017 Do You Use Protection During Sex? Always Information not available 08/19/2017 Do You Use Protection Against STDs? No Information not available 01/13/2022 What Is Your Relationship Status? 2010 Enio Guardado [email or web address] Information not available 08/11/2016 Seat Belts Used Routinely Yes Information not available 08/19/2017 Are You Sexually Active? Yes Information not available 08/19/2017 Do You Have Smoke And Carbon Monoxide Detectors In Your Home? Yes [email or web address] Information not available 01/13/2022 Are You Passively Exposed To Smoke? No [email or web address] Information not available 01/13/2022 How Much Tobacco Do You Smoke? No Information not available 07/21/2022 General Stress Level Low Information not available 08/19/2017 Do You Use Sunscreen Routinely? No Information not available 08/19/2017 Has Tobacco Cessation Counseling Been Provided? No Information not available 01/13/2022 Do You Have Difficulty Walking Or Climbing Stairs? No Information not available 08/19/2017 What Contraceptive Method Was Reported At Start Of This Visit? Female Sterilization Information not available 01/13/2022 What Contraceptive Method Was Reported At End Of This Visit? Female Sterilization [email or web address] Information not available 01/13/2022 Do You Want To Talk About Contraception Or Prevention During Your Visit Today? No - I Do Not Want To Talk About Contraception Today Because I Am Here For Something Else [email or web address] Information not available 01/13/2022 How Was The Contraceptive Method Provided? Provided On Site [email or web address] Information no t available 01/13/2022 Do You Have Any Future Plans To Get ? No, I Don't Want To Become [email or web address] Information not available 01/13/2022 Sex: Female Functional Status Question Answer Note LastModified by Organizat ion Details LastModified Time Do you or have you ever used smokeless tobacco? Never used smokeless tobacco Information not available 12/04/2020 Are you currently employed? Yes Information not available 08/19/2017 Do you have transportation difficulties? No [email or web address] Information not available 01/13/2022 Urinary incontinence assessment performed? Yes Information not available 08/19/2017 Are you able to care for yourself independently? Yes [email or web address] Information not available 01/13/2022 Do you have difficulty dressing, bathing, grooming, or toileting? No Information not available 08/19/2017 Do you or have you ever used e-cigarettes or vape? Never used electronic cigarettes Information not available 12/04/2020 What is your exercise level? None Information not available 08/19/2017 Do you use any illicit or recreational drugs? No [email or web address] Information not available 01/13/2022 Do you or have you ever used any other forms of tobacco or nicotine? No [email or web address] Information not available 01/13/2022 What is your level of alcohol consumption? None Information not available 08/19/2017 What is your status? Not [email or web address] Information no t available 01/13/2022 Are you able to walk independently without assistance or assistive devices? [email or web address] Information not available 08/19/2017 Do you have difficulty doing errands alone? No Information not available 08/19/2017 What is your occupation? [employer] Information not available 08/19/2017 Mental Status Question Answer Note LastModified by Organizat ion Details LastModified Time Do you feel stressed (tense, restless, nervous, or anxious, or unable to sleep at night)? [id number] [email or web address] Information not available 01/13/2022 Do you have [...] Obesity N Vision or Eye Problems N Restless Leg Syndrome N Arthritis N Polyps N Infertility N Carpal Tunnel [...] Cancer Y Hernia N Plantar Fasciitis N Lung Disease N Hypothyroidism N Defects or Inherited Disease N Breast Problem N Ovarian Cyst N Anesthesia Complications N Testosterone Deficiency N Interstitial Cystitis N Congenital Anomalies N Hypoglycemia N Blood clot N Vitamin D Deficiency N Cellulitis N Endometriosis N Fracture N Bladder or Kidney Problems N Schizophrenia N Panic Disorder N Concussion N Spina Bifida N Osteoarthritis N Parkinson's Disease N Disc Protrusion N STI N Esophagitis N Angina N Thyroid Problems N GI Problems N ADD/ADHD N Anemia N Multiple Sclerosis N Abnormal PAP N Lumbago N Mental Illness N Psychiatric Illness N Ovarian Cancer N Diabetes N Degenerative Disc Disease N Seizures/Epilepsy N Syncope N Insomnia N Hyperlipidemia N Eczema N Dementia N Attention Deficient Disorder N Abuse/Domestic Violence N Ulcerative colitis N Cerebrovascular Disease N Depression N Guillain-[place] N Sleep Apnea N Aneurysm N Heart Disease N Bronchitis N Suicidal Ideation N Pre-Eclampsia N Hypertension N Osteoporosis N Gynecological History Statement/Question Response [...] influenza, unspecified formulation 4 completed ELMO Manriquez - [facility] 04/13/2023 09:54:07 Pneumococcal conjugate PCV 13 5 completed ELMO Manriquez - [facility] 03/13/2023 13:02:57 Influenza, split virus, trivalent, preservative 4 completed ELMO Manriquez - [facility] 03/13/2023 13:02:57 Past Encounters Encounter ID Performer Location Encounter Start Date Encounter Closed Date Diagnosis/Indication Diagnosis SNOMED-CT Code Diagnosis ICD10 Code Diagnosis IMO Codes Diagnosis Note [id number] DO Butch Nieves [employer] [address] [place] [address] [place] [id number] 7 08/19/2017 16:05:44 08/19/2017 17:15:58 Depression screening 664377345 Z13.89 Diet education 33145142 Z71.3 Counseling 178967320 Z71 .9 Exercise counsellin g. Patient encouraged to exercise 30 minutes 5 days a week. Examinatio n of blood pressure 849116545 Z01.30 Vaccine de clined by patient 5100341202 02 Z28.21 Screening mammography 24 938379 Z12.31 Body mass index 30+ - obesity 275808894 Z68.39 Uterine cervix absent 24 3946937 Z90.710 Menopausal syndrome 1237 27751 N95.9 Routine gy necologic examination done 4888657817 9101 Z01.318 [id number] DO Melba Niev[place]ville [employer] [address] [place] [address] [place] [id number] 7 10/21/2017 13:26:38 10/21/2017 14:43:51 Carcinoma of breast 500641204 C50.012 Referral to [facility] on 11/03/17 per patient. Additional pathology pending. Body mass index 25-29 - overweight 972703420 Z68.27 Screening for malignant neoplasm of vagina 869700062 Z12.72 [id number] DO Butch Nieves [employer] [address] [place] [address] [place] [id number] 7 08/10/2018 09:11:49 08/10/2018 11:19:05 Routine gynecologic examination done 1682100217 9101 Z01.419 Depression screening 171 324815 Z13.89 Diet education 55858517 Z71.3 Counseling 214736100 Z71 .82 Exercise counseldennys g. Patient encouraged to exercise 30 minutes 5 days a week. Examinatio n of blood pressure 607451076 Z01.30 Body mass index 30+ - obesity 965715973 Z68.30 Carcinoma of breast 2548 51828 C50.012 metastatic - breast reconstruc tion surgery on , August 12, 2018 going to take oral suppressiv e chemo medication [id number] DO Butch Nieves [employer] [address] [place] [address] [place] [id number] 7 12/04/2020 15:06:03 12/04/2020 16:24:52 Pain in pelvis 81160110 R10.2 [id number] Mila Bull DO [place] [employer] [address] [place] [address] [place] [id number] 7 01/07/2022 14:43:27 01/07/2022 15:42:15 Abnormal urine odor 0204783 R82.90 Family his tory of diabetes mellitus type 2 898900813 Z83.3 [id number] EDDIE [place] [employer] [address] [place] [address] [place] [id number] 7 01/13/2022 09:12:13 01/13/2022 09:54:45 Dysuria 20209760 R30.9 Nausea 618761931 R11.0 Mild dehydration 5187769 119 108 E86.0 Personal h istory of primary malignant neoplasm of breast 997351819 Z85.3 [id number] EDDIE Louis [employer] [address] [place] [address] [place] [id number] 7 01/27/2022 09:56:04 01/27/2022 11:27:46 Dysuria 76849116 R30.9 Liver enzy mes level above reference range 564822808 R74.8 Isolated thrombocytopenia 058856217 D69.6 Personal h istory of primary malignant neoplasm of breast 107020052 Z85.3 Low back pain 054114374 M54.59 Increased frequency of urination 590800419 R35.0 [id number] DO Melba [place] [employer] [address] [place] [address] [place] [id number] 7 05/06/2022 15:29:49 05/06/2022 16:38:09 Routine gynecologic examination done 2149914696 9101 Z01.419 Depression screening 171 194012 Z13.89 Diet education 76073949 Z71.3 Counseling 651280349 Z71 .82 Exercise counseldennys maher Patient encouraged to exercise 30 minutes 5 days a week. Examinatio n of blood pressure 241246673 Z01.30 Vaccine de clined by patient 9276706830 02 Z28.21 Screening mammography 24 479693 Z12.31 Acquired a bsence of cervix and uterus 174206596 Z90.710 Body mass index 25-29 - overweight 217983258 Z68.27 Cigarette smoker 8052615 7 F17.210 Declines interventi on at this time [id number] Wili Chan APRN [address] [id number] 07/21/2022 16:06:47 07/21/2022 17:03:44 Persistent cough 544856538 R05.3 Acute bronchitis 2085781 2 J20.9 encouraged to go to ed for eval to r/o pneumonia, pt wants to try rochepin and if no improvemen t or worsening will go to ed per pt [id number] EDDIE Ndiaye [employer] [address] [place] [address] [place] [id number] 09/11/2022 09:43:43 09/11/2022 15:59:03 Dysuria-frequency syndrome 0870405 R30.0 [id number] Wili Chan [address] [id number] 03/13/2023 12:44:00 03/13/2023 13:34:25 Body mass index 25-29 - overweight 751741438 Z68.29 Overweight 515305500 E66 .3 Acute urin bernadette tract infection 705250574 N39.0 urine cx pt has in her portal from [facility] is sensitive to keflex Acute bronchitis 0456716 2 J20.9 encouraged to go to ed for eval to r/o pneumonia, pt wants to try rochepin and if no improvemen t or worsening will go to ed per pt Acute righ t otitis media 982113239 H66.91 [id number] Wili Chan APRN [address] [id number] 04/13/2023 09:39:30 04/13/2023 10:52:11 Increased frequency of urination 184252542 R35.0 Left lower quadrant pain 705719057 R10.32 [id number] Wili Chan APRN [facility] [address] [facility] [place]EL [id number] 03/04/2024 15:09:21 03/04/2024 15:51:06 Acute maxillary sinusitis 10813065 J01.00 if no improvemen t returnPati ent [...] ID Guarantor Name 03/04/2024 1 [employer] (POS) Enio Roseter [id number] Raine Roseter 03/12/2025 1 [employer] ([place] [id number] 01 Enio Roseter [id number] Jacqualine Peyton Guardado 10/21/2017 1 [employer] Enio Guardado [id number] Raine Todd Guardado 05/13/2023 1 [facility] (PPO) [id number] Raine Todd Guardado [id number] Raine Guardado Notes Date Note Type Note Provider Name and Address Organization Details Recorded Time 07/21/2022 text/html 51 yr old female presents with cough, soa, feeling worse. Was recently prescribed a z pack and steroid pack for strep but feels like it's in her chest now. pt states she is doing breathing treatments q6 hours. Wili Chan, [employer] [address], [place], [address], [place] - [facility] 07/24/2022 09:25:12 09/11/2022 text/html DysuriaReported by PatientHPIFor quality, patient reportsburning,pressur e, andpain. For severity, patient reportsworsening. For context, patient reportssexually activebut reportsno prior history of stdsandno known exposure to std. For duration, patient reportsintermittent. For timing, patient reportsbetter,gradual, andactual date: (08-29-2022). For modifying factors, patient reportsnothing gives reliefandnothing makes it worse. For associated symptoms, patient reportsno fever,no blisters on genitals,no rash on genitals,no hesitancy,no blood in the urine,normal urine stream, andno flank pain. Pt dropped urine sample. States she has dysuria and would like something called in. Sowmya Joseph APRN [address], [place], [address], [facility] - [facility] 09/11/2022 10:51:36 03/13/2023 text/html 52 yr old female presents with cough, rt ear pain, and congestion for over a week. She also thinks she has a urinary tract infection- she has frequency and a funny smell to urine. She had a urine culture done at [facility] and has it on her portal. Wili Chan APRN [address], [place], [address], [facility] - [facility] 03/13/2023 13:46:28 04/13/2023 text/html 52 yr old female presents with a possible UTI. pt states left lower quad pain, pt is worried she is having a complication from her reconstructive surgery. has been seen fre for uti. Wili Chan APRN [address], [place], [address], [facility] - [facility] 04/13/2023 10:39:52 03/04/2024 text/html ROS as noted in the HPI 53 yr old female presents for head congestion- green drainage x 2 weeks. She finished amoxicillin and tessalon perles. She has not improved. She was also given a rocephin injection. Wili Chan APRN [address], [place], [address], [facility] - [facility] 03/04/2024 15:55:38 OBGyn Episode No OBEpisode recorded.
== END 2025-07-31 23:59 ==
LOC: LAB.DROPOF 08-02 12:04
PROVIDERS: PCP Nurse Practitioner Family; Visit Provider Nurse Practitioner Family
DX: E03.9 Hypothyroidism, unspecified (principal)
CPT/HCPCS: 84436; 84439; 84443; 84481